=== PATIENT | female | born 1990 | race Hispanic/Latino ===

== ENCOUNTER 2017-07-14 11:59 | Emergency (ER) | payer SELFPAY ==
[2017-07-14 13:31] LABS: Absolute Lymphocytes (CBC) 2.4 K/uL (0.7-4.9); Absolute Monocytes 0.7 K/uL (0.1-1.3); Absolute Neutrophil 8.9 K/uL (1.8-8.0); Basophils % 1.2 % (0-1.3); Eosinophils % 0.2 % (0-4.4); Lymphocytes % 19.9 % (15.3-44.8); MCH 29.1 pg (27.0-35.0); MCV 88.7 fL (80-100); Monocytes % 5.6 % (3.3-12.3)
[2017-07-14 13:36] LABS: Urine Blood 2+ (NEG); Urine Glucose NEGATIVE (NEG); Urine Protein 1+ (NEG)
[2017-07-14] MEDS ORDERED: ONDANSETRON 4 MG/2 ML VIAL ONE (13:50)
[2017-07-14] MEDS ORDERED: NA CHLORIDE 0.9% 1,000 ML ONE (13:50)
[2017-07-14] MEDS ORDERED: KETOROLAC 30 MG/ML INJ ONE (13:50)
[2017-07-14 14:09] LABS: Bicarbonate 26 mEq/L (21-31); Glucose Level 97 mg/dL (65-120); Lipase 17 U/L (22-51); Potassium 3.8 mEq/L (3.6-5.0); Sodium Level 140 mEq/L (135-145)
[2017-07-14 14:15] LABS: ALT/SGPT 33 IU/L (10-60); AST/SGOT 25 IU/L (10-42); Albumin 4.3 g/dL (3.2-5.5); Alkaline Phosphatase 65 IU/L (42-121); Amylase Level 47 U/L (28-100); BUN Blood Urea Nitrogen 13 mg/dL (6-20); Bilirubin Direct < 0.1 mg/dL (0-0.2); Bilirubin Total 0.4 mg/dL (0.3-1.2); Protein, Total 7.4 g/dL (6.0-8.3)
--- NOTE | 2017-07-14 14:16 | RAD REPORT ---
EXAM DESCRIPTION: US - Abdomen Exam Limited - 07/14/2017 2:01 pm CLINICAL HISTORY: Abdominal pain. COMPARISON: None. FINDINGS: The gallbladder demonstrates shadowing gallstones. No pericholecystic fluid or gallbladder wall thickening. The common bile duct is normal measuring 4 mm. The liver demonstrates no findings of intrahepatic biliary dilatation. IMPRESSION: Cholelithiasis.
--- NOTE | 2017-07-14 14:22 | EDPHYS ---
Physician Documentation [facility] Name: Apoorva Toribio Age: 27 yrs Sex: Female : 1990 Arrival Date: 07/14/2017 Time: 12:03 Bed 19 Private MD: ED Physician Warren Guevara HPI: 07/14 13:30 This 27 yrs old Female presents to ER via Ambulatory with complaints of kb Abdominal Pain, Back Pain, Vomiting. 13:30 The patient presents with abdominal pain in the right upper quadrant. Onset: The kb symptoms/episode began/occurred 6 month(s) ago, and became worse yesterday. The symptoms radiate to right back. Associated signs and symptoms: Pertinent positives: nausea and vomiting. The symptoms are described as achy, intermittent. Modifying factors: The symptoms are alleviated by nothing, the symptoms are aggravated by food. Severity of pain: At its worst the pain was moderate in the emergency department the pain is unchanged. The patient has not experienced similar symptoms in the past. The patient has not recently seen a physician. Pt states she has had intermittent RUQ pain since January. Was seen here when it first started and was diagnosed with gallstones. States she was told to follow up with a surgeon, but hasn't been able to. States she started vomiting last night and it looked like acid so she came in to get checked out again. . 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 - Social history:: Smoking status: Patient/guardian denies using tobacco. ROS: 13:30 Constitutional: Negative for fever, chills, and weight loss, Cardiovascular: Negative kb for chest pain, palpitations, and edema, Respiratory: Negative for shortness of breath, cough, wheezing, and pleuritic chest pain, Back: Negative for injury and pain, : Negative for injury, bleeding, discharge, and swelling, MS/Extremity: Negative for injury and deformity, Skin: Negative for injury, rash, and discoloration, Neuro: Negative for headache, weakness, numbness, tingling, and seizure. 13:30 Abdomen/GI: Positive for abdominal pain, nausea and vomiting, Negative for diarrhea, constipation, abdominal cramps, abdominal distension, anorexia. Exam: 13:29 Constitutional: This is a well developed, well nourished patient who is awake, alert, kb and in no acute distress. Head/Face: Normocephalic, atraumatic. Chest/axilla: Normal chest wall appearance and motion. Nontender with no deformity. No lesions are appreciated. Cardiovascular: Regular rate and rhythm with a normal S1 and S2. No gallops, murmurs, or rubs. Normal PMI, no JVD. No pulse deficits. Respiratory: Lungs have equal breath sounds bilaterally, clear to auscultation and percussion. No rales, rhonchi or wheezes noted. No increased work of breathing, no retractions or nasal flaring. Back: No spinal tenderness. No costovertebral tenderness. Full range of motion. Skin: Warm, dry with normal turgor. Normal color with no rashes, no lesions, and no evidence of cellulitis. MS/ Extremity: Pulses equal, no cyanosis. Neurovascular intact. Full, normal range of motion. Neuro: Awake and alert, GCS 15, oriented to person, place, time, and situation. Cranial nerves II-XII grossly intact. Motor strength 5/5 in all extremities. Sensory grossly intact. Cerebellar exam normal. Normal gait. 13:29 Abdomen/GI: Inspection: abdomen appears normal, Bowel sounds: normal, in all quadrants, Palpation: soft, in all quadrants, mild abdominal tenderness, in the right upper quadrant. Vital Signs: 12:11 BP 114 / 73; Pulse 85; Resp 18 S; Temp 98.2(TE); Pulse Ox 99% on R/A; Weight 90.72 kg aa5 (R); Height 5 ft. 7 in. (170.18 cm) (R); Pain 6/10; 13:34 BP 99 / 57; Pulse 85; Resp 16; Pulse Ox 97% ; mh5 12:11 Body Mass Index 31.32 (90.72 kg, 170.18 cm) aa5 MDM: 12:46 Patient medically screened. kb 13:29 Data reviewed: vital signs, nurses notes. Data interpreted: Pulse oximetry: on room air kb is 99 %. Interpretation: normal. 14:17 Counseling: I had a detailed discussion with the patient and/or guardian regarding: the kb historical points, exam findings, and any diagnostic results supporting the discharge/admit diagnosis, lab results, radiology results, the need for outpatient follow up, a general surgeon, to return to the emergency department if symptoms worsen or persist or if there are any questions or concerns that arise at home. 07/14 13:01 Order name: Amylase, Serum; Complete Time: 14:15 kb 07/14 13:01 Order name: Basic Metabolic Panel; Complete Time: 14:15 kb 07/14 13:01 Order name: CBC with Diff kb 07/14 13:01 Order name: Hepatic Function; Complete Time: 14:15 kb 07/14 13:01 Order name: Lipase; Complete Time: 14:15 kb 07/14 13:18 Order name: Urine Dipstick--Ancillary (enter results); Complete Time: 13:37 eb 07/14 13:01 Order name: Urine Test (obtain specimen); Complete Time: 13:11 kb 07/14 13:01 Order name: IV Saline Lock; Complete Time: 13:24 kb 07/14 13:01 Order name: Labs collected and sent; Complete Time: 13:24 kb 07/14 13:01 Order name: US Abdomen Limited; Complete Time: 14:17 kb 07/14 13:18 Order name: Urine --Ancillary (enter results); Complete Time: 13:37 eb 07/14 13:01 Order name: Urine Dipstick-Ancillary (obtain specimen); Complete Time: 13:11 kb 07/14 13:33 Order name: Labs - recollect needed; Complete Time: 13:49 eb Administered Medications: 14:00 Drug: Zofran 4 mg Route: IVP; Site: right forearm; ph 14:32 Follow up: Response: No adverse reaction; Nausea is decreased ed1 14:00 Drug: TORadol 30 mg Route: IVP; Site: right forearm; ph 14:32 Follow up: Response: No adverse reaction; Pain is decreased ed1 14:01 Drug: NS 0.9% 1000 ml Route: IV; Rate: 1000 ml; Site: right forearm; ed1 14:32 Follow up: IV Status: Completed infusion; IV Intake: 1000ml ed1 Disposition: 07/14/17 14:22 Discharged to Home. Impression: Cholelithiasis. - Condition is Stable. - Discharge Instructions: Cholelithiasis, [id number]. - Prescriptions for Zofran 4 mg Oral Tablet - take 1 tablet by ORAL route every 6 hours As needed; 20 tablet. Diclofenac Sodium 75 mg Oral Tablet, Delayed Release (E.C.) - take 1 tablet by ORAL route 2 times per day As needed; 30 tablet. - Medication Reconciliation Form, Thank You Letter, Antibiotic Education, Prescription Opioid Use form. - Follow up: Emergency Department; When: As needed; Reason: Worsening of condition. Follow up: Private Physician; When: 2 - 3 days; Reason: Recheck today's complaints, Continuance of care, Re-evaluation by your physician. Addendum: 07/16/2017 10:45 Co-signature as Attending Physician, Warren Guevara MD I agree with the assessment and w a plan of care. Signatures: Dispatcher [employer] EDMS Tessa Edwards, JONAC AGRICULTURAL CHEMIST-Lu Lund, RN RN aa5 Wendi Mooney LVN ARMATURE REPAIRER ed1 Leeann Julian RN RN Warren Guevara MD MD wa Botello, Elizabeth eb Corrections: (The following items were deleted from the chart) 07/14 14:33 14:22 07/14/2017 14:22 Discharged to Home. Impression: Cholelithiasis. Condition is ed1 Stable. Discharge Instructions: Cholelithiasis, [id number]. Prescriptions for Zofran 4 mg Oral Tablet - take 1 tablet by ORAL route every 6 hours As needed; 20 tablet, Diclofenac Sodium 75 mg Oral Tablet, Delayed Release (E.C.) - take 1 tablet by ORAL route 2 times per day As needed; 30 tablet. and Forms are Medication Reconciliation Form, Thank You Letter, Antibiotic Education, Prescription Opioid Use. Follow up: Emergency Department; When: As needed; Reason: Worsening of condition. Follow up: Private Physician; When: 2 - 3 days; Reason: Recheck today's complaints, Continuance of care, Re-evaluation by your physician. kb
--- NOTE | 2017-07-14 14:22 | ER ---
Nurse's Notes [facility] Name: Apoorva Toribio Age: 27 yrs Sex: Female : 1990 Arrival Date: 07/14/2017 Time: 12:03 Bed 19 Private MD: Diagnosis: Cholelithiasis Presentation: 07/14 12:10 Presenting complaint: Patient states: RUQ pain radiating to right mid back. Pt also aa5 reports N/V. Pt states "I've been seen here before and they said I have gallstones". Transition of care: patient was not received from another setting of care. Onset of symptoms was June 2017. Initial Sepsis Screen: Does the patient meet any 2 criteria? No. Patient's initial sepsis screen is negative. Does the patient have a suspected source of infection? No. Patient's initial sepsis screen is negative. Care prior to arrival: None. 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 - Social history:: Smoking status: Patient/guardian denies using tobacco. Screenin:54 Abuse screen: Denies threats or abuse. Denies injuries from another. Nutritional ed1 screening: No deficits noted. Tuberculosis screening: No symptoms or risk factors identified. Fall Risk None identified. Assessment: 12:54 General: Appears uncomfortable, Behavior is calm, cooperative. Pain: Complains of pain ed1 in right upper quadrant Pain radiates to back Pain currently is 6 out of 10 on a pain scale. Quality of pain is described as sharp, Pain began 1 day ago. Is continuous. Neuro: Level of Consciousness is awake, alert, obeys commands, Oriented to person, place, time, situation. Cardiovascular: Heart tones S1 S2 present Chest pain is denied. Respiratory: Airway is patent Trachea midline Respiratory effort is even, unlabored, Respiratory pattern is regular, symmetrical, Breath sounds are clear bilaterally. GI: Abdomen is non-distended, Bowel sounds present X 4 quads. Abd is soft and non tender X 4 quads. Reports diarrhea, nausea, vomiting. : No signs and/or symptoms were reported regarding the genitourinary system. EENT: No signs and/or symptoms were reported regarding the EENT system. Derm: Skin is pink, warm \\T\\ dry. Musculoskeletal: Circulation, motion, and sensation intact. 12:54 Reassessment: I agree with assessment completed by JUAN M Adame. iw 14:31 Reassessment: Patient appears in no apparent distress at this time. Patient and/or ed1 family updated on plan of care and expected duration. Pain level reassessed. Patient is alert, oriented x 3, equal unlabored respirations, skin warm/dry/pink. Patient states feeling better. Patient states symptoms have improved. Vital Signs: 12:11 BP 114 / 73; Pulse 85; Resp 18 S; Temp 98.2(TE); Pulse Ox 99% on R/A; Weight 90.72 kg aa5 (R); Height 5 ft. 7 in. (170.18 cm) (R); Pain 6/10; 13:34 BP 99 / 57; Pulse 85; Resp 16; Pulse Ox 97% ; mh5 12:11 Body Mass Index 31.32 (90.72 kg, 170.18 cm) aa5 ED Course: 12:03 Patient arrived in ED. as 12:11 Triage completed. aa5 12:11 Arm band placed on. aa5 12:40 Tessa Edwards FNP-C [facility]. kb 12:41 Warren Guevara MD is Attending Physician. kb 12:52 Wendi Mooney LVN is Primary Nurse. ed1 12:54 Patient has correct armband on for positive identification. Bed in low position. Call ed1 light in reach. 13:24 Initial lab(s) drawn, by me, sent to lab. Missed attempt(s): 22 gauge in right forearm. ed1 Bleeding controlled, band aid applied, catheter tip intact. 13:29 Urine collected: clean catch specimen, cloudy. 5 13:30 Urine --Ancillary (enter results) Sent. 5 13:30 Urine Dipstick--Ancillary (enter results) Sent. 5 13:45 Patient taken to ultrasound. via wheelchair. sg3 13:51 Lab(s) recollected, by me, sent to lab. Inserted saline lock: 22 gauge in right 5 forearm, using aseptic technique. Blood collected. 13:54 Ultrasound completed. Patient tolerated well. Patient moved back from ultrasound. sg3 14:01 US Abdomen Limited In Process Unspecified. EDMS 14:31 No provider procedures requiring assistance completed. IV discontinued, intact, ed1 bleeding controlled, No redness/swelling at site. Pressure dressing applied. Administered Medications: 14:00 Drug: Zofran 4 mg Route: IVP; Site: right forearm; ph 14:32 Follow up: Response: No adverse reaction; Nausea is decreased ed1 14:00 Drug: TORadol 30 mg Route: IVP; Site: right forearm; ph 14:32 Follow up: Response: No adverse reaction; Pain is decreased ed1 14:01 Drug: NS 0.9% 1000 ml Route: IV; Rate: 1000 ml; Site: right forearm; ed1 14:32 Follow up: IV Status: Completed infusion; IV Intake: 1000ml ed1 Intake: 14:32 IV: 1000ml; Total: 1000ml. ed1 Outcome: 14:22 Discharge ordered by MD. norman 14:31 Discharged to home ambulatory. ed1 14:31 Condition: good 14:31 Discharge instructions given to patient, Instructed on discharge instructions, follow up and referral plans. medication usage, Demonstrated understanding of instructions, follow-up care, medications, Prescriptions given X 2. 14:33 Patient left the ED. ed1 Signatures: Dispatcher [employer] EDMS Tessa Edwards, CLEANING PORTER-C CLEANING PORTER-Nasrin Hawkins as Alba Johnson, Lu Hill RN, RN RN aa5 Wendi Mooney, JUAN M MCGOWAN ed1 Leeann Julian RN RN ph Martinez, Maria Yael Blankenship sg3
[2017-07-14 14:36] VITALS: TEMP 98.2
[2017-07-14 14:37] VITALS: BP 99/57; O2SAT 97
== END 2017-07-14 14:33 | disposition home or self-care (01) ==
LOC: ER 11:59
DX: K80.20 Calculus of gallbladder without cholecystitis without obstruction (principal); M54.9 Dorsalgia, unspecified; R11.11 Vomiting without nausea
CPT/HCPCS: 36415; 76705; 80048; 80076; 81003; 81025; 82150; 83690; 85025; 96361; 96374; 96375; 99284; J2405; J7030

== ENCOUNTER 2017-12-23 18:03 | Emergency (ER) | payer SELFPAY ==
[2017-12-23 18:53] LABS: Absolute Lymphocytes (CBC) 2.7 K/uL (0.7-4.9); Absolute Monocytes 0.6 K/uL (0.1-1.3); Absolute Neutrophil 6.5 K/uL (1.8-8.0); Basophils % 0.7 % (0-1.3); Eosinophils % 1.6 % (0-4.4); Hematocrit 39.4 % (36.0-45.0); Lymphocytes % 27.3 % (15.3-44.8); MCH 29.8 pg (27.0-35.0); MPV 8.9 fL (7.6-11.3); Monocytes % 5.9 % (3.3-12.3); RBC Red Blood Cell Count 4.52 M/uL (3.86-4.86)
[2017-12-23 19:02] LABS: ALT/SGPT 33 U/L (12-78); AST/SGOT 20 U/L (15-37); Albumin 3.7 g/dL (3.4-5.0); Alkaline Phosphatase 90 U/L (45-117); BUN Blood Urea Nitrogen 16 mg/dL (7-18); Bicarbonate 25 mmol/L (21-32); Bilirubin Direct < 0.1 mg/dL (0-0.2); Bilirubin Total 0.2 mg/dL (0.2-1.0); Glucose Level 115 mg/dL (74-106); Lipase 168 U/L (73-393); Potassium 4.1 mmol/L (3.5-5.1); Protein, Total 7.3 g/dL (6.4-8.2); Sodium Level 141 mmol/L (136-145)
[2017-12-23] MEDS ORDERED: KETOROLAC 30 MG/ML INJ ONE (19:07)
[2017-12-23] MEDS ORDERED: NA CHLORIDE 0.9% 1,000 ML ONE (19:08)
--- NOTE | 2017-12-23 19:14 | RAD REPORT ---
EXAM DESCRIPTION: CT - Stone Protocol - 12/23/2017 6:47 pm CLINICAL HISTORY: Back pain, flank pain COMPARISON: None. TECHNIQUE: Axial 5 mm thick images were obtained without oral or IV contrast. The [id number] span s the entirety of the system partially obscuring uppermost abdomen and lung bases. All CT scans are performed using dose optimization technique as appropriate and may include automated exposure control or mA/KV adjustment according to patient size. FINDINGS: No hydronephrosis is present and no obstructing ureteral calculi. No suspicious renal mass es. Isodense masses and pyelonephritis are not excluded on a stone protocol CT scan. Urinary bladder is contracted limiting detail. No bladder calculus. Uterus and ovaries show no suspicious findings. Imaged portions of the liver, spleen and pancreas show no suspicious findings on non-contrast imaging . No gallbladder or biliary tree abnormality identified. No significant adrenal finding. No suspicious bowel findings. No hernia, mass or bulky lymphadenopathy noted. No free air, free fluid or inflammatory stranding. No significant bony abnormality. Patient has advanced for age degenerative change at the L5-S1 disc level. IMPRESSION: Negative CT stone protocol study. Isodense masses and pyelonephritis are not excluded on stone protocol technique. Advanced for age degenerative change at the L5-S1 disc level.
[2017-12-23 19:20] LABS: Urine Blood 2+ (NEG); Urine Glucose NEGATIVE (NEG); Urine Protein NEGATIVE (NEG); Urine Specific Gravity >1.030 (1.005-1.030); Urine pH 6.5 (5.0-7.0)
--- NOTE | 2017-12-23 20:14 | ER ---
Nurse's Notes [facility] Name: Apoorva Toribio Age: 27 yrs Sex: Female : 1990 Arrival Date: 12/23/2017 Time: 18:06 Bed 15 Private MD: Diagnosis: Low back pain Presentation: 12/23 18:07 Presenting complaint: Patient states: lower back pain for 3 days, no known injury. la1 Transition of care: patient was not received from another setting of care. Onset of symptoms was December 23, 2017. Risk Assessment: Do you want to hurt yourself or someone else? Patient reports no desire to harm self or others. Initial Sepsis Screen: Does the patient meet any 2 criteria? No. Patient's initial sepsis screen is negative. Does the patient have a suspected source of infection? No. Patient's initial sepsis screen is negative. Care prior to arrival: None. 18:07 Method Of Arrival: Ambulatory la1 18:07 Acuity: KARLY 3 la1 Historical: - Allergies: 18:08 No Known Allergies; la1 - PMHx: 18:08 None; la1 - Immunization history:: Adult Immunizations up to date. - Social history:: Smoking status: Patient/guardian denies using tobacco. - Ebola Screening: : No symptoms or risks identified at this time. Screenin:35 Abuse screen: Denies threats or abuse. Denies injuries from another. Nutritional aj screening: No deficits noted. Tuberculosis screening: No symptoms or risk factors identified. Fall Risk None identified. Assessment: 18:35 General: Appears in no apparent distress. comfortable, Behavior is calm, cooperative, aj appropriate for age. Pain: Complains of pain in left lower back and right lower back. Neuro: Level of Consciousness is awake, alert, obeys commands, Oriented to person, place, time, situation, Appropriate for age. Respiratory: Airway is patent Respiratory effort is even, unlabored, Respiratory pattern is regular, symmetrical. : Denies burning with urination. Derm: Skin is intact, is healthy with good turgor, Skin is pink, warm \T\ dry. normal. Musculoskeletal: Reports pain in left lower back and right lower back. 19:05 Reassessment: Patient appears in no apparent distress at this time. Patient and/or cc3 family updated on plan of care and expected duration. Pain level reassessed. Patient is alert, oriented x 3, equal unlabored respirations, skin warm/dry/pink. Received this female patient from morning shift ELIEL Sewell as a case of back pain; with IV cannula gauge 18 at the right wrist saline locked; still to give the ordered medications as endorsed. 20:15 Reassessment: Patient appears in no apparent distress at this time. Patient and/or cc3 family updated on plan of care and expected duration. Pain level reassessed. Patient is alert, oriented x 3, equal unlabored respirations, skin warm/dry/pink. NAEEM Toribio discharged the patient home with prescription given. IV cannula removed and patient left ER vitally stable and ambulatory. Vital Signs: 18:08 BP 115 / 76; Pulse 108; Resp 18; Temp 97.6; Pulse Ox 98% on R/A; Weight 90.72 kg; la1 19:15 BP 113 / 77; Pulse 98; Resp 20 S; Pulse Ox 100% on R/A; Pain 9/10; cc3 20:06 BP 115 / 60; Pulse 97; Resp 19 S; Pulse Ox 100% on R/A; Pain 6/10; cc3 ED Course: 18:06 Patient arrived in ED. tw3 18:07 Triage completed. la1 18:08 Catarino Grossman, NAEEM is PHCP. pm1 18:08 Rudolph Jurado MD is Attending Physician. pm1 18:08 Arm band placed on left wrist. la1 18:26 Melodie Garcia, ELIEL is Primary Nurse. aj 18:35 Patient has correct armband on for positive identification. aj 18:35 Inserted saline lock: 18 gauge in right wrist, using aseptic technique. Blood collected.aj 18:47 CT Stone Protocol In Process Unspecified. EDMS 19:09 Urine collected: clean catch specimen. 5 19:10 Urine collected: clean catch specimen, clear. 5 20:15 No provider procedures requiring assistance completed. IV discontinued, intact, cc3 bleeding controlled, No redness/swelling at site. Pressure dressing applied. Administered Medications: 19:05 Drug: NS 0.9% 1000 ml Route: IV; Rate: 1000 ml; Site: right wrist; cc3 20:00 Follow up: Response: No adverse reaction; IV Status: Completed infusion; IV Intake: cc3 1000ml 19:05 Drug: TORadol 30 mg Route: IVP; Site: right wrist; cc3 20:00 Follow up: Response: No adverse reaction; Pain is decreased cc3 Intake: 20:00 IV: 1000ml; Total: 1000ml. cc3 Outcome: 20:13 Discharge ordered by MD. pm1 20:15 Discharged to home ambulatory. cc3 20:15 Condition: stable 20:15 Discharge instructions given to patient, Instructed on discharge instructions, follow up and referral plans. medication usage, Demonstrated understanding of instructions, follow-up care, medications, Prescriptions given X 1. 20:23 Patient left the ED. cc3 Signatures: Dispatcher [employer] EDMS Melodie Garcia RN RN aj Attema, Lee, RN RN la1 Catarino Grossman, NAEEM MECHANICAL PROJECT ENGINEER pm1 Janice Montez Tia tw3 Isabella Marx cc3 Corrections: (The following items were deleted from the chart) 18:29 18:07 Acuity: KARLY 4 la1 la1 19:11 07:05 TORadol 30 mg IVP in right wrist cc3 cc3
--- NOTE | 2017-12-23 20:14 | EDPHYS ---
Physician Documentation [facility] Name: Apoorva Toribio Age: 27 yrs Sex: Female : 1990 Arrival Date: 12/23/2017 Time: 18:06 Bed 15 Private MD: ED Physician Rudolph Jurado HPI: 12/23 19:00 This 27 yrs old Female presents to ER via Ambulatory with complaints of Back pm1 Pain. 19:00 The patient presents with pain that is acute, with no known mechanism of injury. The pm1 symptoms are located in the lumbar area and left low back. Onset: The symptoms/episode began/occurred 3 day(s) ago. The pain does not radiate. Associated signs and symptoms: Pertinent negatives: abdominal pain, chest pain, dysuria, fever, nausea, numbness, tingling, vomiting. The problem was sustained from unknown cause. Modifying factors: The patient symptoms are alleviated by specific position, the patient symptoms are aggravated by bending, movement. Severity of symptoms: in the emergency department the symptoms are unchanged. The patient has not experienced similar symptoms in the past. The patient has not recently seen a physician. Historical: - Allergies: 18:08 No Known Allergies; la1 - PMHx: 18:08 None; la1 - Immunization history:: Adult Immunizations up to date. - Social history:: Smoking status: Patient/guardian denies using tobacco. - Ebola Screening: : No symptoms or risks identified at this time. ROS: 19:00 Constitutional: Negative for fever, chills, and weight loss, Eyes: Negative for injury, pm1 pain, redness, and discharge, ENT: Negative for injury, pain, and discharge, Neck: Negative for injury, pain, and swelling, Cardiovascular: Negative for chest pain, palpitations, and edema, Respiratory: Negative for shortness of breath, cough, wheezing, and pleuritic chest pain, Abdomen/GI: Negative for abdominal pain, nausea, vomiting, diarrhea, and constipation. 19:00 MS/Extremity: Negative for injury and deformity, Skin: Negative for injury, rash, and discoloration. 19:00 Back: Positive for of the lumbar area and left low back. 19:00 : Positive for urinary frequency, Negative for burning with urination, vaginal bleeding, vaginal discharge. Exam: 19:00 Constitutional: This is a well developed, well nourished patient who is awake, alert, pm1 and in no acute distress. Head/Face: Normocephalic, atraumatic. Eyes: Pupils equal round and reactive to light, extra-ocular motions intact. Lids and lashes normal. Conjunctiva and sclera are non-icteric and not injected. Cornea within normal limits. Periorbital areas with no swelling, redness, or edema. ENT: Nares patent. No nasal discharge, no septal abnormalities noted. Tympanic membranes are normal and external auditory canals are clear. Oropharynx with no redness, swelling, or masses, exudates, or evidence of obstruction, uvula midline. Mucous membranes moist. Neck: Trachea midline, no thyromegaly or masses palpated, and no cervical lymphadenopathy. Supple, full range of motion without nuchal rigidity, or vertebral point tenderness. No Meningismus. Chest/axilla: Normal chest wall appearance and motion. Nontender with no deformity. No lesions are appreciated. Cardiovascular: Regular rate and rhythm with a normal S1 and S2. No gallops, murmurs, or rubs. No pulse deficits. Respiratory: Lungs have equal breath sounds bilaterally, clear to auscultation and percussion. No rales, rhonchi or wheezes noted. No increased work of breathing, no retractions or nasal flaring. Abdomen/GI: Soft, non-tender, with normal bowel sounds. No distension or tympany. No guarding or rebound. No evidence of tenderness throughout. Back: No spinal tenderness. No costovertebral tenderness. Full range of motion. Skin: Warm, dry with normal turgor. Normal color with no rashes, no lesions, and no evidence of cellulitis. MS/ Extremity: Pulses equal, no cyanosis. Neurovascular intact. Full, normal range of motion. 19:00 Neuro: Orientation: is normal, Motor: is normal, moves all fours, Sensation: is normal, no obvious gross deficits, Deep tendon reflexes are 2+ (normal) in the right patellar, right Achilles, left patellar and left Achilles. Vital Signs: 18:08 BP 115 / 76; Pulse 108; Resp 18; Temp 97.6; Pulse Ox 98% on R/A; Weight 90.72 kg; la1 19:15 BP 113 / 77; Pulse 98; Resp 20 S; Pulse Ox 100% on R/A; Pain 9/10; cc3 20:06 BP 115 / 60; Pulse 97; Resp 19 S; Pulse Ox 100% on R/A; Pain 6/10; cc3 MDM: 18:16 Patient medically screened. pm1 20:12 Data reviewed: vital signs. Data interpreted: Pulse oximetry: on room air is 100 %. pm1 Interpretation: normal. Counseling: I had a detailed discussion with the patient and/or guardian regarding: the historical points, exam findings, and any diagnostic results supporting the discharge/admit diagnosis, lab results, radiology results, the need for outpatient follow up, to return to the emergency department if symptoms worsen or persist or if there are any questions or concerns that arise at home. 12/23 18:23 Order name: Basic Metabolic Panel; Complete Time: 19:38 pm1 12/23 18:23 Order name: CBC with Diff; Complete Time: 19:38 pm1 12/23 18:23 Order name: Creatinine for Radiology; Complete Time: 19:38 pm1 12/23 18:23 Order name: Hepatic Function; Complete Time: 19:38 pm1 12/23 18:23 Order name: Lipase; Complete Time: 19:38 pm1 12/23 18:23 Order name: IV Saline Lock; Complete Time: 19:12 pm1 12/23 18:23 Order name: Labs collected and sent; Complete Time: 19:12 pm1 12/23 18:23 Order name: Urine Dipstick-Ancillary (obtain specimen); Complete Time: 18:40 pm1 12/23 18:23 Order name: CT Stone Protocol; Complete Time: 19:38 pm1 12/23 18:44 Order name: Urine Dipstick--Ancillary (enter results); Complete Time: 19:38 ag 12/23 18:44 Order name: Urine --Ancillary (enter results); Complete Time: 19:38 ag 12/23 18:23 Order name: Urine Test (obtain specimen); Complete Time: 18:40 pm1 Administered Medications: 19:05 Drug: NS 0.9% 1000 ml Route: IV; Rate: 1000 ml; Site: right wrist; cc3 20:00 Follow up: Response: No adverse reaction; IV Status: Completed infusion; IV Intake: cc3 1000ml 19:05 Drug: TORadol 30 mg Route: IVP; Site: right wrist; cc3 20:00 Follow up: Response: No adverse reaction; Pain is decreased cc3 Disposition: 12/23/17 20:13 Discharged to Home. Impression: Low back pain. - Condition is Stable. - Discharge Instructions: Back Pain, Adult, Back Injury Prevention, [id number], Degenerative Disk Disease. - Prescriptions for Naprosyn 500 mg Oral Tablet - take 1 tablet by ORAL route 2 times per day take with food; 30 tablet. - Medication Reconciliation Form, Thank You Letter, Prescription Opioid Use form. - Follow up: Emergency Department; When: As needed; Reason: Worsening of condition. Follow up: Private Physician; When: 2 - 3 days; Reason: Recheck today's complaints, Continuance of care, Re-evaluation by your physician. - Problem is new. - Symptoms have improved. Addendum: 12/25/2017 07:18 Co-signature as Attending Physician, Rudolph Jurado MD I agree with the assessment and c benz plan of care. Signatures: Dispatcher [employer] EDNV Rudolph Jurado MD MD cha Attema, Lee RN RN la1 Catarino Grossman NP SESSIONS CLERK pm1 Isabella Marx cc3 Corrections: (The following items were deleted from the chart) 12/23 20:23 20:13 12/23/2017 20:13 Discharged to Home. Impression: Low back pain. Condition is cc3 Stable. Forms are Medication Reconciliation Form, Thank You Letter, Antibiotic Education, Prescription Opioid Use. Follow up: Emergency Department; When: As needed; Reason: Worsening of condition. Follow up: Private Physician; When: 2 - 3 days; Reason: Recheck today's complaints, Continuance of care, Re-evaluation by your physician. Problem is new. Symptoms have improved. pm1
[2017-12-23 20:27] VITALS: TEMP 97.6
[2017-12-23 20:29] VITALS: O2SAT 100
[2017-12-23 20:30] VITALS: BP 115/60
== END 2017-12-23 20:23 | disposition home or self-care (01) ==
LOC: ER 18:03
DX: M54.5 Low back pain (principal)
CPT/HCPCS: 36415; 74176; 76377; 80048; 80076; 81003; 81025; 83690; 85025; 96361; 96374; 99284; J7030

== ENCOUNTER 2019-10-04 11:49 | Emergency (ER) | payer OTHER ==
--- OUTSIDE RECORDS SUMMARY | 2019-10-04 11:58 | XMS REPORT | Continuity of Care Document ---
:1990 Author Organization [facility] t Address [address] [place] [address] Care Team Providers Name Role Phone Isadroa PETERSON Attending Clinician Visit, Nurse Attending Clinician Unavailable Tereso ZIMMERMAN R Attending Clinician Blanca Cordova MD Attending Clinician Faculty, [facility] Lorenza Attending Clinician Unavailable Doctor Unassigned, Name Attending Clinician Unavailable Blanca Cordova MD Admitting Clinician Problems This patient has no known problems. Allergies, Adverse Reactions, Alerts This patient has no known allergies or adverse reactions. Medications This patient has no known medications. Procedures This patient has no known procedures. Encounters Start End Encounter Admission Attending Care Care Encounter Source Date/Time Date/Time Type Type Clinicians Facility Department ID 2018-11-08 2018-11-08 Telephone Isadora GUADALUPE 1.2.840.114 [id number] 00:00:00 00:00:00 , Lucita EGAN [id number] [facility] [id number] [id number] 2018-10-19 2018-10-19 Nurse VisitGOSIA [id number] 13:49:07 14:54:[facility] [id number] Nurse [facility] [id number] MATERNAL [id number] & CHILD [address] [place] [address] 2018-10-17 2018-10-17 Routine GOSIA Rider [id number] 11:36:32 11:54:06 Osvaldo R SITE RELIABILITY ENGINEER [id number] Visit [facility] [id number] MATERNAL [id number] & CHILD [address] [facility] 2018-10-15 2018-10-15 Telephone Isadora GUADALUPE 1.2.840.114 [id number] 00:00:00 00:00:00 , Lucita EGAN [id number] [facility] [id number] [id number] 2018-10-15 2018-10-15 1.2.840.1 1.2.840.114 [id number] 00:00:00 00:00:00 Encounter [id number] 3.104.2.7 [id number] [id number] 2018-10-11 2018-10-14 [facility] [id number] 18:46:00 12:53:00 Encounter Samantha Rios JIGNESH [id number] [facility] 4.2.7.2.686 [id number] 2018-10-14 2018-10-14 1.2.840.1 1.2.840.114 [id number] 00:00:00 00:00:00 Encounter [id number] 350.1.13.10 3.104.2.7 [id number] [id number] 2018-10-11 2018-10-11 Routine Faculty, [facility] 1.2.840.114 [id number] 10:38:34 11:31:42 [facility] SITE RELIABILITY ENGINEER [id number] Visit [facility] 4.2.7.2.686 MATERNAL [id number] & CHILD [address] [facility] 2018-10-11 2018-10-11 Orders Doctor COLLINS 1.2.840.114 [id number] 00:00:00 00:00:00 Only Unassigned, JIGNESH 350.1.13.10 [place] [facility] 4.2.7.2.686 [id number] 2018-10-08 2018-10-09 Routine Faculty, [facility] 1.2.840.114 [id number] 08:49:24 09:36:03 Ang Rmchp SITE RELIABILITY ENGINEER 350.1.13.10 Visit [facility] 4.2.7.2.686 MATERNAL [id number] & CHILD [address] [place] [address] 2018-09-19 2018-09-19 Patient Doctor COLLINS 1.2.840.114 [id number] 00:00:00 00:00:00 Secure Msg Unassigned, JIGNESH 350.1.13.10 [place] [address]686 [id number] [id number] 2018-09-14 2018-09-14 Patient Doctor COLLINS 1.2.840.114 [id number] 00:00:00 00:00:00 Secure Msg Unassigned, JIGNESH 350.1.13.10 [place] [id number] Results This patient has no known results.
--- NOTE | 2019-10-04 13:02 | EDPHYS ---
Physician Documentation [facility] Name: Apoorva Toribio Age: 29 yrs Sex: Female : 1990 Arrival Date: 10/04/2019 Time: 11:51 Bed 13 Private MD: ED Physician Wilfrido Garrido HPI: 10/03 14:48 This 29 yrs old Female presents to ER via Ambulatory with complaints of jr8 Indigestion . 14:50 Onset: The symptoms/episode began/occurred gradually. Associated signs and symptoms: jr8 none. The symptoms are described as burning. Modifying factors: The symptoms are alleviated by nothing, the symptoms are aggravated by food. Severity of pain: At its worst the pain was mild. The patient has not experienced similar symptoms in the past. The patient has not recently seen a physician. Patient stated that she is 19 weeks . Has been having gnawing epigastric pain with burning. Worse in the AM. Has not tried antacids as of yet. Denies any other symptoms at this time . 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 - Social history:: Smoking status: Patient denies any tobacco usage or history of. ROS: 14:50 Eyes: Negative for injury, pain, redness, and discharge, ENT: Negative for injury, jr8 pain, and discharge, Neck: Negative for injury, pain, and swelling, Cardiovascular: Negative for chest pain, palpitations, and edema, Respiratory: Negative for shortness of breath, cough, wheezing, and pleuritic chest pain, Back: Negative for injury and pain, MS/Extremity: Negative for injury and deformity, Skin: Negative for injury, rash, and discoloration, Neuro: Negative for headache, weakness, numbness, tingling, and seizure. 14:50 Abdomen/GI: Positive for abdominal pain, Negative for nausea, vomiting, and diarrhea, abdominal cramps, abdominal distension, anorexia, dysphagia, hematemesis, black/tarry stool, rectal pain, rectal bleeding, bowel incontinence, flatulence. Exam: 14:50 Eyes: Pupils equal round and reactive to light, extra-ocular motions intact. Lids and jr8 lashes normal. Conjunctiva and sclera are non-icteric and not injected. Cornea within normal limits. Periorbital areas with no swelling, redness, or edema. ENT: Nares patent. No nasal discharge, no septal abnormalities noted. Tympanic membranes are normal and external auditory canals are clear. Oropharynx with no redness, swelling, or masses, exudates, or evidence of obstruction, uvula midline. Mucous membranes moist. Neck: Trachea midline, no thyromegaly or masses palpated, and no cervical lymphadenopathy. Supple, full range of motion without nuchal rigidity, or vertebral point tenderness. No Meningismus. Cardiovascular: Regular rate and rhythm with a normal S1 and S2. No gallops, murmurs, or rubs. Normal PMI, no JVD. No pulse deficits. Respiratory: Lungs have equal breath sounds bilaterally, clear to auscultation and percussion. No rales, rhonchi or wheezes noted. No increased work of breathing, no retractions or nasal flaring. Abdomen/GI: Soft, non-tender, with normal bowel sounds. No distension or tympany. No guarding or rebound. No evidence of tenderness throughout. Back: No spinal tenderness. No costovertebral tenderness. Full range of motion. Skin: Warm, dry with normal turgor. Normal color with no rashes, no lesions, and no evidence of cellulitis. MS/ Extremity: Pulses equal, no cyanosis. Neurovascular intact. Full, normal range of motion. Neuro: Awake and alert, GCS 15, oriented to person, place, time, and situation. Cranial nerves II-XII grossly intact. Motor strength 5/5 in all extremities. Sensory grossly intact. Cerebellar exam normal. Normal gait. Vital Signs: 11:59 BP 119 / 67; Pulse 74; Resp 14; Temp 98.0(TE); Pulse Ox 97% on R/A; Weight 99.79 kg; ss Height 5 ft. 7 in. (170.18 cm); Pain 4/10; 11:59 Body Mass Index 34.46 (99.79 kg, 170.18 cm) MDM: 12:12 Patient medically screened. jr8 12:58 Data reviewed: vital signs, nurses notes, and as a result, I will discharge patient. jr8 Data interpreted: Pulse oximetry: on room air is 97 %. Interpretation: normal. Counseling: I had a detailed discussion with the patient and/or guardian regarding: the historical points, exam findings, and any diagnostic results supporting the discharge/admit diagnosis, the need for outpatient follow up, an OB/Gyne specialist, to return to the emergency department if symptoms worsen or persist or if there are any questions or concerns that arise at home. ED course: Patient without abdominal pain or tenderness. Symptoms consistent with acid reflux related to . Will start patient on pepcid and told to f/u with OB. If worse to come back for reevaluation. Patient good with this . Administered Medications: No medications were administered Disposition: 15:44 Co-signature as Attending Physician, Wilfrido Garrido MD I agree with the assessment and kdr plan of care. Disposition: 10/04/19 13:00 Discharged to Home. Impression: Functional dyspepsia. - Condition is Stable. - Discharge Instructions: Indigestion. - Prescriptions for Pepcid 20 mg Oral Tablet - take 1 tablet by ORAL route once daily; 20 tablet. - Medication Reconciliation Form, Thank You Letter, Antibiotic Education, Prescription Opioid Use form. - Follow up: Private Physician; When: 2 - 3 days; Reason: Recheck today's complaints, Continuance of care, Re-evaluation by your physician. - Problem is new. - Symptoms have improved. Signatures: Wilfrido Garrido MD MD [facility] Shalini Benedict RN RN Nnamdi Walls PA PA jr8 Mable Abarca RN RN hb Corrections: (The following items were deleted from the chart) 13:15 13:00 10/04/2019 13:00 Discharged to Home. Impression: Functional dyspepsia. Condition hb is Stable. Forms are Medication Reconciliation Form, Thank You Letter, Antibiotic Education, Prescription Opioid Use. Follow up: Private Physician; When: 2 - 3 days; Reason: Recheck today's complaints, Continuance of care, Re-evaluation by your physician. Problem is new. Symptoms have improved. jr8
--- NOTE | 2019-10-04 13:02 | ER ---
Nurse's Notes [facility] Name: Apoorva Toribio Age: 29 yrs Sex: Female : 1990 Arrival Date: 10/04/2019 Time: 11:51 Bed 13 Private MD: Diagnosis: Functional dyspepsia Presentation: 10/03 11:59 Chief complaint: Patient states: epigastric burning x 3-4 days. Pt reports she is 19 ss weeks currently and does not have a doctor because she just moved. Denies vaginal bleeding/ abd cramping. Coronavirus screen: Patient denies a cough. Patient denies shortness of breath or difficulty breathing. Patient denies measured and/or subjective temperature greater than 100.4F prior to today's visit. Patient denies travel on a cruise ship or to a country the [facility] currently lists as an affected area. Patient denies contact with known and/or suspected case of COVID-19. Ebola Screen: Patient denies exposure to infectious person. Patient denies travel to an Ebola-affected area in the 21 days before illness onset. Initial Sepsis Screen: Does the patient meet any 2 criteria? No. Patient's initial sepsis screen is negative. Does the patient have a suspected source of infection? No. Patient's initial sepsis screen is negative. Risk Assessment: Do you want to hurt yourself or someone else? Patient reports no desire to harm self or others. Onset of symptoms was September 30, 2019. 11:59 Method Of Arrival: Ambulatory ss 11:59 Acuity: KARLY 3 ss Triage Assessment: 12:06 General: Appears in no apparent distress. Behavior is calm, cooperative. Pain: ks7 Complains of pain in abdomen epigastric pain Pain currently is 4 out of 10 on a pain scale. at worst was 8 out of 10 on a pain scale. Quality of pain is described as burning, Pain began 2-3 days ago. worse when she wakes up in the am. Respiratory: No deficits noted. Injury Description: denies injury. 13:27 Injury Description: no injury. ks7 13:28 Respiratory: No deficits noted. ks7 13:29 Injury Description:. Injury Description:. 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 - Social history:: Smoking status: Patient denies any tobacco usage or history of. Screenin:09 Abuse screen: Denies threats or abuse. Denies injuries from another. Nutritional ks7 screening: No deficits noted. Tuberculosis screening: No symptoms or risk factors identified. Fall Risk None identified. Assessment: 12:09 General: Appears in no apparent distress. pt c/o burning epigastric pain, currently ks7 4/10 pain. worse when she first wakes up in am. pt is 19 weeks PG, has only had 1 WASH DRILLER appt d/t no insurance and relocating to [place]. pt denies any lower abd pain, denies bleeding or any other sx related to . aaox4, ambulatory. Derm: No deficits noted. Vital Signs: 11:59 BP 119 / 67; Pulse 74; Resp 14; Temp 98.0(TE); Pulse Ox 97% on R/A; Weight 99.79 kg; ss Height 5 ft. 7 in. (170.18 cm); Pain 4/10; 11:59 Body Mass Index 34.46 (99.79 kg, 170.18 cm) ED Course: 11:51 Patient arrived in ED. ag5 12:01 Triage completed. ss 12:01 Arm band placed on right wrist. 12:06 Kathe Louise, RN is Primary Nurse. ks7 12:09 Patient has correct armband on for positive identification. Call light in reach. ks7 12:09 No provider procedures requiring assistance completed. Patient did not have IV access ks7 during this emergency room visit. 12:11 Nnamdi Walls PA is PHCP. jr8 12:11 Wilfrido Garrido MD is Attending Physician. jr8 Administered Medications: No medications were administered Outcome: 13:00 Discharge ordered by . jr8 13:15 Patient left the ED. hb 13:28 Discharged to home ambulatory. ks7 13:28 Condition: good 13:28 Condition: good 13:28 Discharge instructions given to patient, pt left without dc instructions and script. pt still standing outside waiting for her ride, viscosity worker brought paperwork out to pt. Signatures: Shalini Benedict, RN RN Nnamdi West PA PA jr8 Mable Abarca RN RN Joselito Thornton ag5 Kathe Louise RN RN ks7
[2019-10-04 13:20] VITALS: BP 119/67; TEMP 98; O2SAT 97
== END 2019-10-04 13:15 | disposition home or self-care (01) ==
LOC: ER 11:49
DX: O99.612 Diseases of the digestive system complicating pregnancy, second trimester (principal); K30 Functional dyspepsia; Z3A.19 19 weeks gestation of pregnancy
CPT/HCPCS: 99281

== ENCOUNTER 2020-10-15 08:50 | Emergency (ER) | payer OTHER ==
--- OUTSIDE RECORDS SUMMARY | 2020-10-15 08:54 | XMS REPORT | Continuity of Care Document ---
:1990 Author Organization [facility] t Address [address] [place] [address] Care Team Providers Name Role Phone Jose Guadalupe Rodriguez MD Attending Clinician Gato Jasso MD Attending Clinician Hong PAZ Attending Clinician Ultrasound Attending Clinician Unavailable Aliyah WHCNP, C Attending Clinician Faculty, Rmchp Mfm Attending Clinician Unavailable Doctor Unassigned, Name Attending Clinician Unavailable Tereso TRACK REPAIRER HELPER, R Attending Clinician Jose Guadalupe Rodriguez MD Admitting Clinician Problems This patient has no known problems. Allergies, Adverse Reactions, Alerts This patient has no known allergies or adverse reactions. Medications This patient has no known medications. Procedures This patient has no known procedures. Encounters Start End Encounter Admission Attending Care Care Encounter Source Date/Time Date/Time Type Type Clinicians Facility Department ID 2020-02-14 2020-02-17 [facility] Shi COLLINS 1.2.840.114 [id number] 08:04:00 12:35:00 Encounter Chely EGAN 350.1.13.10 [facility] 4.2.7.2.686 [id number] 2020-02-17 2020-02-17 [facility] 1.2.840.1 1.2.840.114 [id number] 00:00:00 00:00:00 Encounter [id number] 350.1.13.10 3.104.2.7 [id number] [id number] 2020-02-14 2020-02-14 Anesthesia Carlitos Perez 1.2. 840.114 [id number] 10:18:00 14:00:00 Helga Pitts 350.1.13.10 ANNEX 4.2.7.2.686 [id number] 2020-02-12 2020-02-12 Dictaphone Transcriber Ultrasound, [facility] 1.2.840.114 [id number] 09:38:50 10:03:19 Visit [facility] AVID EDITOR 350.1.13.10 [facility] 4.2.7.2.686 MATERNAL [id number] & CHILD [facility] 2020-02-12 2020-02-12 Abstract [facility] 1.2.840.114 [id number] 00:00:00 00:00:00 Jane C AVID EDITOR 350.1.13.10 [facility] 4.2.7.2.686 MATERNAL [id number] & CHILD 107 [facility] 2020-02-10 2020-02-10 Telemedici Faculty, [facility] 1.2.840.114 [id number] 08:25:58 08:55:58 ne Visit [facility] AVID EDITOR 350.1.13.10 [facility] 4.2.7.2.686 MATERNAL [id number] & CHILD 107 [facility] 2020-02-10 2020-02-10 [facility] [id number] 07:51:17 08:53:42 Jane C AVID EDITOR 350.1.13.10 Visit [facility] 4.2.7.2.686 MATERNAL [id number] & CHILD 107 [facility] 2020-02-10 2020-02-10 Orders Doctor COLLINS 1.2.840.114 [id number] 00:00:00 00:00:00 Only Unassigned, JIGNESH 350.1.13.10 [facility] 4.2.7.2.686 [id number] 2020-02-05 2020-02-05 [facility] 1.2.500.671 [id number] 08:34:33 09:37:41 Jane C AVID EDITOR 350.1.13.10 Visit [facility] 4.2.7.2.686 MATERNAL [id number] & CHILD 107 [facility] 2020-02-05 2020-02-05 Orders Doctor COLLINS 1.2.840.114 [id number] 00:00:00 00:00:00 Only Unassigned, JIGNESH 350.1.13.10 [facility] 4.2.7.2.686 [id number] 2020-02-03 2020-02-03 Routine Faculty, [facility] 1.2.840.114 [id number] 08:37:59 10:21:14 Ang Rmchp AVID EDITOR 350.1.13.10 Visit [facility] 4.2.7.2.686 MATERNAL [id number] & CHILD 107 [facility] 2020-01-30 2020-01-30 [facility] 1.2.685.758 [id number] 09:01:45 10:04:06 Jane C AVID EDITOR 350.1.13.10 Visit [facility] 4.2.7.2.686 MATERNAL [id number] & CHILD 107 [facility] 2020-01-30 2020-01-30 Orders Doctor COLLINS 1.2.840.114 [id number] 00:00:00 00:00:00 Only Unassigned, JIGNESH 350.1.13.10 [place] [facility] 4.2.7.2.686 [id number] 2020-01-27 2020-01-27 Telemedici Faculty, [facility] 1.2.840.114 [id number] 09:45:11 09:45:51 ne Visit Ang Rmchp AVID EDITOR 350.1.13.10 [facility] 4.2.7.2.686 MATERNAL [id number] & CHILD 107 [facility] 2020-01-27 2020-01-27 Routine Rider, [facility] 1.2.840.114 [id number] 08:06:57 09:45:32 Roshunda R AVID EDITOR 350.1.13.10 Visit [facility] 4.2.7.2.686 MATERNAL [id number] & CHILD 107 [facility] 2020-01-23 2020-01-23 Routine Akinsipe, [facility] 1.2.732.649 [id number] 08:16:33 09:15:06 Jane C AVID EDITOR 350.1.13.10 Visit [facility] 4.2.7.2.686 MATERNAL [id number] & CHILD 107 [facility] 2020-01-21 2020-01-21 Orders Doctor COLLINS 1.2.840.114 [id number] 00:00:00 00:00:00 Only Unassigned, JIGNESH 350.1.13.10 [place] [facility] 4.2.7.2.686 [id number] 2020-01-16 2020-01-16 Telephone [facility], [facility] 1.2.840.114 [id number] 00:00:00 00:00:00 Jane C AVID EDITOR 350.1.13.10 [facility] 4.2.7.2.686 MATERNAL [id number] & CHILD 107 [facility] 2020-01-15 2020-01-15 Dictaphone Transcriber Ultrasound, [facility] 1.2.840.114 [id number] 09:20:19 09:53:20 Visit Ang-m AVID EDITOR 350.1.13.10 [facility] 4.2.7.2.686 MATERNAL [id number] & CHILD 369 [facility] 2020-01-15 2020-01-15 Telephone Akinsipe, [facility] 1.2.840.114 [id number] 00:00:00 00:00:00 Jane C AVID EDITOR 350.1.13.10 [facility] 4.2.7.2.686 MATERNAL [id number] & CHILD 107 [facility] 2020-01-15 2020-01-15 Abstract Akinsipe, [facility] 1.2.840.114 [id number] 00:00:00 00:00:00 Jane C AVID EDITOR 350.1.13.10 [facility] 4.2.7.2.686 MATERNAL [id number] & CHILD 107 [facility] 2020-01-09 2020-01-09 Routine Akinsipe, [facility] 1.2.014.238 [id number] 10:39:53 11:24:55 Jane C AVID EDITOR 350.1.13.10 Visit [facility] 4.2.7.2.686 MATERNAL [id number] & CHILD 107 [facility] 2020-01-06 2020-01-06 Telephone GOSIA Ly 1.2.840.114 [id number] 00:00:00 00:00:00 Jane Longoria AVID EDITOR 350.1.13.10 [facility] 4.2.7.2.686 MATERNAL [id number] & CHILD 107 [facility] 2019-09-24 2019-09-24 Orders Doctor COLLINS 1.2.840.114 [id number] 00:00:00 00:00:00 Only Unassigned, JIGNESH 350.1.13.10 [place] 4.2.7.2.686 [id number] Results This patient has no known results.
[2020-10-15] MEDS ORDERED: ACETAMINOPHEN 500 MG TAB ONE (11:28)
--- NOTE | 2020-10-15 11:56 | RAD REPORT ---
EXAM DESCRIPTION: RAD - Chest Single View - 10/15/2020 11:24 am CLINICAL HISTORY: COUGH Chest pain. COMPARISON: Chest Pa And Lat (2 Views) dated 10/13/2020; CHEST SINGLE VIEW dated 08/23/2012; ABDOMEN 1 VIEW KUB dated 09/14/2011 FINDINGS: Portable technique limits examination quality. Bilateral pulmonary opacities are present in the lung bases most compatible with bronchitis/viral inf ection. The heart is mildly to moderately enlarged. No displaced fractures.
--- NOTE | 2020-10-15 12:10 | EDPHYS ---
Physician Documentation [facility] Name: Apoorva Toribio Age: 30 yrs Sex: Female : 1990 Arrival Date: 10/15/2020 Time: 08:54 Bed DX2 Private MD: ED Physician Wilfrido Garrido HPI: 10/15 10:16 This 30 yrs old Female presents to ER via Ambulatory with complaints of Cough. kdr 10:16 The patient or guardian reports cough, that is intermittent, described as mild, with kdr productive sputum, that is bloody, difficulty breathing. Onset: The symptoms/episode began/occurred gradually, 1 week(s) ago. Severity of symptoms: At their worst the symptoms were mild, in the emergency department the symptoms are unchanged. Associated signs and symptoms: Pertinent positives: Abdominal pain and low back pain primarily with coughing. The patient has not experienced similar symptoms in the past. The patient has been recently seen by a physician: Patient states that she had a chest x-ray and Covid test 2 days ago that were both negative. Patient continues to have cough and congestion. Today she has had small flecks of blood in her sputum. The blood is more bright red and dark.. . 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 - Social history:: Smoking status: Patient denies any tobacco usage or history of. ROS: 10:16 Constitutional: Negative for fever, chills, and weight loss, Eyes: Negative for injury, kdr pain, redness, and discharge, Neck: Negative for injury, pain, and swelling, Cardiovascular: Negative for chest pain, palpitations, and edema, Abdomen/GI: Negative for abdominal pain, nausea, vomiting, diarrhea, and constipation, Back: Negative for injury and pain, : Negative for injury, bleeding, discharge, and swelling, MS/Extremity: Negative for injury and deformity, Skin: Negative for injury, rash, and discoloration, Neuro: Negative for headache, weakness, numbness, tingling, and seizure activity. Psych: Negative for depression, anxiety, suicide ideation, homicidal ideation, and hallucinations, Allergy/Immunology: Negative for hives, rash, and allergies, Endocrine: Negative for neck swelling, polydipsia, polyuria, polyphagia, and marked weight changes, Hematologic/Lymphatic: Negative for swollen nodes, abnormal bleeding, and unusual bruising. 10:16 Respiratory: Positive for cough, with rust-colored sputum, dyspnea on exertion, shortness of breath, wheezing. Exam: 10:16 Constitutional: This is a well developed, well nourished patient who is awake, alert, kdr and in no acute distress. Head/Face: Normocephalic, atraumatic. Eyes: Pupils equal round and reactive to light, extra-ocular motions intact. Lids and lashes normal. Conjunctiva and sclera are non-icteric and not injected. Cornea within normal limits. Periorbital areas with no swelling, redness, or edema. Neck: Trachea midline, no thyromegaly or masses palpated, and no cervical lymphadenopathy. Supple, full range of motion without nuchal rigidity, or vertebral point tenderness. No Meningismus. Chest/axilla: Normal chest wall appearance and motion. Nontender with no deformity. No lesions are appreciated. Cardiovascular: Regular rate and rhythm with a normal S1 and S2. No gallops, murmurs, or rubs. Normal PMI, no JVD. No pulse deficits. Abdomen/GI: Soft, non-tender, with normal bowel sounds. No distension or tympany. No guarding or rebound. No evidence of tenderness throughout. Back: No spinal tenderness. No costovertebral tenderness. Full range of motion. Skin: Warm, dry with normal turgor. Normal color with no rashes, no lesions, and no evidence of cellulitis. MS/ Extremity: Pulses equal, no cyanosis. Neurovascular intact. Full, normal range of motion. Neuro: Awake and alert, GCS 15, oriented to person, place, time, and situation. Cranial nerves II-XII grossly intact. Motor strength 5/5 in all extremities. Sensory grossly intact. Cerebellar exam normal. Normal gait. Psych: Awake, alert, with orientation to person, place and time. Behavior, mood, and affect are within normal limits. 10:16 Respiratory: the patient does not display signs of respiratory distress, Respirations: no acute changes, Breath sounds: rales, that are moderate, are scattered, are heard diffusely. Vital Signs: 09:29 BP 104 / 54; Pulse 103; Resp 16; Temp 100.1(O); Pulse Ox 98% on R/A; Weight 116.12 kg; ss Height 5 ft. 7 in. (170.18 cm); Pain 7/10; 09:29 Body Mass Index 40.09 (116.12 kg, 170.18 cm) MDM: 10:16 Data reviewed: vital signs, nurses notes, diagnostic data from outside facility, [facility] medical records, lab test result(s), EKG, radiologic studies. Counseling: I had a detailed discussion with the patient and/or guardian regarding: the historical points, exam findings, and any diagnostic results supporting the discharge/admit diagnosis, lab results, radiology results, the need for outpatient follow up. 12:09 Patient medically screened. [facility] 10/15 09:34 Order name: COVID-19 : Document "Date of Symptom Onset" if Symptomatic. 10/15 09:34 Order name: Flu 10/15 09:34 Order name: Influenza Screen (A ; Complete Time: 12:06 EDMS 10/15 11:07 Order name: CXR XRAY; Complete Time: 12:06 kdr 10/15 11:51 Order name: SARS-COV-2 RT PCR; Complete Time: 12:06 EDMS Administered Medications: 11:07 Drug: Tylenol 1000 mg Route: PO; 12:48 Follow up: Response: No adverse reaction 12:38 Drug: SOLU-Medrol (methylPREDNISolone sodium succinate) 125 mg Route: IM; Site: right ss deltoid; 12:48 Follow up: Response: No adverse reaction Disposition Summary: 10/15/20 12:09 Discharge Ordered Location: Home kdr Problem: new kdr Symptoms: have improved kdr Condition: Stable kdr Diagnosis - Other viral pneumonia kdr - Viral pneumonia, unspecified kdr - Viral upper respiratory infection, Covid, cough kdr Followup: kdr - With: Private Physician - When: 2 - 3 days - Reason: If symptoms return, Further diagnostic work-up, Recheck today's complaints, Continuance of care, Re-evaluation by your physician Discharge Instructions: - Discharge Summary Sheet kdr - COVID-19 kdr - Things to Know about the COVID-19 Pandemic - [facility] kdr - 10 Things You Can Do to Manage Your COVID-19 Symptoms at Home - [facility] kdr Forms: - Medication Reconciliation Form kdr - Thank You Letter kdr Prescriptions: - Prednisone 20 mg Oral Tablet - take 1 tablet by ORAL route once daily for 14 days Take 1 tablet twice daily kdr for 7 days then tablet daily for 7 days. Dispense quantity sufficient; 21 tablet; Refills: 0, Product Selection Permitted - Tessalon Perles 100 mg Oral Capsule - take 1 capsule by ORAL route every 8 hours As needed; 15 capsule; Refills: 0, kdr Product Selection Permitted Signatures: Dispatcher [employer] EDMS Wilfrido Garrido MD MD kdr Shalini Benedict RN RN ss Corrections: (The following items were deleted from the chart) 10:51 09:34 CORONAVIRUS ordered. [facility] EDDE
--- NOTE | 2020-10-15 12:10 | ER ---
Nurse's Notes [facility] Name: Apoorva Toribio Age: 30 yrs Sex: Female : 1990 Arrival Date: 10/15/2020 Time: 08:54 Bed DX2 Private MD: Diagnosis: Other viral pneumonia;Viral pneumonia, unspecified;Viral upper respiratory infection, Covid, cough Presentation: 10/15 09:29 Chief complaint: Patient states: Negative COVID test and chest XRAY two days ago. PT ss reporpts that her back and abd are sore and now she has blood tinged mucus when she coughs. Pt reports she had body aches and headache followed by a cough that began a week ago. Coronavirus screen: Client denies travel out of the [place] in the last 14 days. Client presents with at least one sign or symptom that may indicate coronavirus-19. Standard/surgical mask placed on the client. Provider contacted for isolation considerations. Ebola Screen: Patient denies exposure to infectious person. Patient denies travel to an Ebola-affected area in the 21 days before illness onset. Initial Sepsis Screen: Does the patient meet any 2 criteria? No. Patient's initial sepsis screen is negative. Does the patient have a suspected source of infection? No. Patient's initial sepsis screen is negative. Risk Assessment: Do you want to hurt yourself or someone else? Patient reports no desire to harm self or others. Onset of symptoms was November 08, 2020. 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 - Social history:: Smoking status: Patient denies any tobacco usage or history of. Screenin:25 Abuse screen: Denies threats or abuse. Denies injuries from another. Nutritional ss screening: No deficits noted. Tuberculosis screening: Never had TB. Fall Risk None identified. Assessment: 10:25 General: Appears uncomfortable, Behavior is calm, cooperative, Reports chills for >3 ss days, feeling ill for > 3 days, fatigue for >3 days. Pain: Complains of pain in headache Pain currently is 7 out of 10 on a pain scale. Quality of pain is described as aching. Neuro: Level of Consciousness is awake, alert, obeys commands, Oriented to person, place, time, situation. Cardiovascular: Capillary refill < 3 seconds is brisk in bilateral fingers Patient's skin is warm and dry. Respiratory: Reports cough that is blood tinged since this morning Airway is patent Respiratory effort is even, unlabored, Respiratory pattern is regular, symmetrical. Respiratory: Reports shortness of breath on exertion Breath sounds with rales bilaterally. GI: Abdomen is non-distended, Patient currently denies diarrhea, nausea, vomiting. EENT: Nares are clear Oral mucosa is moist. Derm: Skin is intact, is healthy with good turgor, Skin is dry, Skin is pink, warm \\T\\ dry. normal. Musculoskeletal: Circulation, motion, and sensation intact. Range of motion: intact in all extremities, Swelling absent. Vital Signs: 09:29 BP 104 / 54; Pulse 103; Resp 16; Temp 100.1(O); Pulse Ox 98% on R/A; Weight 116.12 kg; ss Height 5 ft. 7 in. (170.18 cm); Pain 7/10; 09:29 Body Mass Index 40.09 (116.12 kg, 170.18 cm) ss ED Course: 08:54 Patient arrived in ED. mr 09:32 Triage completed. ss 09:32 Arm band placed on right wrist. 10:07 Wilfrido Garrido MD is Attending Physician. kdr 10:22 Flu Sent. 5 10:22 COVID-19 : Document "Date of Symptom Onset" if Symptomatic. Sent. 5 10:22 COVID swab sent to lab. Flu and/or RSV swab sent to lab. [facility] 10:24 Shalini Benedict, ELIEL is Primary Nurse. ss 10:25 Patient has correct armband on for positive identification. Bed in low position. Call ss light in reach. 11:24 CXR XRAY In Process Unspecified. EDMS 12:48 No provider procedures requiring assistance completed. Patient did not have IV access ss during this emergency room visit. Administered Medications: 11:07 Drug: Tylenol 1000 mg Route: PO; ss 12:48 Follow up: Response: No adverse reaction ss 12:38 Drug: SOLU-Medrol (methylPREDNISolone sodium succinate) 125 mg Route: IM; Site: right ss deltoid; 12:48 Follow up: Response: No adverse reaction ss Outcome: 12:09 Discharge ordered by . kdr 12:48 Discharged to home ambulatory. ss 12:48 Condition: good 12:48 Discharge instructions given to patient, Instructed on discharge instructions, follow up and referral plans. Demonstrated understanding of instructions, follow-up care, Prescriptions given X 2. 12:48 Patient left the ED. ss Signatures: Dispatcher [employer] EDMS Wilfrido Garrido MD MD kdr Rivera, Mary mr Smirch, Shelby, RN RN Janice Rose [facility]
[2020-10-15 12:55] VITALS: BP 104/54; TEMP 100.1; O2SAT 98
[2020-10-15] MEDS ORDERED: METHYLPREDNISOLONE 125 MG INJ ONE (12:56)
== END 2020-10-15 12:48 | disposition home or self-care (01) ==
LOC: ER 08:50
DX: U07.1 COVID-19 (principal); J12.89 Other viral pneumonia; J06.9 Acute upper respiratory infection, unspecified
CPT/HCPCS: 87804 ×2; 71045; 96372; 99284; U0003; J2930

== ENCOUNTER 2023-02-08 08:17 | Emergency (ER) | payer OTHER ==
--- OUTSIDE RECORDS SUMMARY | 2023-02-08 08:35 | XMS REPORT | Continuity of Care Document ---
:1990 Author Organization [facility] t Address [address] [address] [place] [address] Care Team Providers Name Role Phone ANGIE LY Primary Care Physician Unavailable Melania Cohen Attending Clinician Unknown, Attending Attending Clinician Unavailable MELANIA GUERRERO Attending Clinician Unavailable Doctor Unassigned, [place] Attending Clinician Unavailable Osvaldo Sharma Attending Clinician Aliyah Angie CHARLES Attending Clinician [phone] Addie Cortez MD Attending Clinician OSVALDO EARLY Attending Clinician Unavailable Lyudmila Roy MD Attending Clinician [phone] Carlitos Perez MD Attending Clinician Helga Pitts MD Attending Clinician LYUDMILA ROY Attending Clinician Unavailable Ultrasound, Joni Attending Clinician Unavailable Harpreet Cherry MD Attending Clinician Vern Worthington MD Attending Clinician HARPREET CHERRY Attending Clinician Unavailable HARPREET CHERRY Attending Clinician Unavailable Adam Villela Attending Clinician Unavailable ANGIE LY Attending Clinician Unavailable Samantha Cordova MD Attending Clinician Rob Hannah CHARLES Attending Clinician Risk, Xim-Gghdb-Av/High Attending Clinician Unavailable Visit, Ang-chp Nurse Attending Clinician Unavailable Kelvin CROWDERP, Belkis Attending Clinician SAMANTHA CORDOVA Attending Clinician Unavailable Yin JULIAN, Tri Rios Attending Clinician Unavailable Lucita Muir LMSW Attending Clinician Liliane PAZ, Kavita Chavez Attending Clinician Jose Guadalupe Rodriguez MD, Lyudmila Admitting Clinician [phone] LYUDMILA ROY Admitting Clinician Unavailable Samantha Cordova MD Admitting Clinician Payers Payer Name Policy Type Policy Number Effective Date Expiration Date Stefany RODRIGUEZS [id number] 2019 HEALTH 00:00:00 EPIFANIO RODRIGUEZS [id number] 2019 00:00:00 Problems Condition Condition Condition Status Onset Resolution Last Treating Co mments Source Name Details Category Date Date Treatment Clinician Date 38 weeks 38 weeks Disease Active 2019-03 Unive rs gestation gestation 2-04 ity of of of 00:00: [place] 00 [facility] Branch Positive Positive Disease Active 2019-03 Unive rs GBS test GBS test 1- ity of 00:00: [place] 00 Medical Branch GDM GDM Disease Active 2019-03 Overview: Univer s (gestation (gestation 0-02 Formattin ity of al al 00:00: g of this [place] diabetes diabetes 00 note Medica l mellitus) mellitus) might be Br anch different from the original. Failed 1hr gtt 221mgdl Two vessel Two vessel Disease Active Overview : Univers cord cord 9-10 Formattin ity of 00:00: g of this [place] 00 note Medical might be Branch different from the original. Noted on usg Susceptibl Susceptibl Disease Active 2019- U nivers e to e to 804 ity of varicella var[place]ella 00:[place] (non-immun (non-immun 00 Me dical e), e), Branch currently currently Supervisio Supervisio Disease Active U nivers n of n of 8-03 ity of high-risk high-risk 00:[place] [facility] with with Branch insufficie insufficie nt nt care care Multiparit Multiparit Disease Active 2020-0 U nivers y y 10-13 ity of 00:00: [place] 00 Medical Branch History of History of Disease Active 2020-0 Overview : Univers 10-13 Formattin ity o f delivery delivery 00:00: g of this [place] 00 note Medical might be Branch different from the original. At 36 weeks due to GDM History of History of Disease Active 2020-0 U nivers gestationa gestationa 10-13 it y of l diabetes l diabetes 00:00[place] [facility] Obesity in Obesity in Disease Active 2020-0 U nivers 10-13 ity of 00:00: [place] 00 [facility] Branch Headache Headache Disease Active 2020-0 Unive rs in in 10-13 [place] of 00:[place] [facility] 36 weeks 36 weeks Disease Active 2019-0 Unive rs gestation gestation 10-11 ity of of of 00:00: [place] 00 [facility] Branch Urinary Urinary Disease Active 2019-0 Univers tract tract 7-18 ity of infection infection 00:00: [place] in mother in mother 00 [facility] during during Branch , , antepartum antepartum GDM, class GDM, class Disease Active 2019-0 U nivers A2 A2 7-18 ity of 00:00: [place] 00 [facility] Supervisio Supervisio Disease Active 2019-0 U nivers n of high n of high 7-18 ity of risk risk 00:00: [place] 00 [facility] in third in third Branch trimester trimester Polyhydram Polyhydram Disease Active 2019-0 U saravanan cruz, 7-18 ity of third third 00:00: [place] trimester, trimester, 00 Me dical single single Branch gestation gestation Excessive Excessive Disease Active 2019-0 Uni vers 7-18 ity of growth growth 00:00: [place] affecting affecting 00 [facility] management management Br anch of of in third in third trimester, trimester, single or single or unspecifie unspecifie d fetus d fetus History of History of Disease Active 2019-0 U nivers polyhydram polyhydram 7-18 it y of saravanan coe 00:00: [place] 00 Medical Branch Polyhydram Polyhydram Disease Active 2019-0 Overview : Univers nios, nios, 7-10 Noted on ity of antepartum antepartum 00:00: [place]g [place] complicati complicati 00 Me dical on on Branch Pyelectasi Pyelectasi Disease Active Overview : Univers s of fetus s of fetus 7-10 left it y of on on 00:00: [place] 00 Medica l ultrasound ultrasound Br anch 33 weeks 33 weeks Disease Active Unive rs gestation gestation 7-09 ity of of of 00:00: [place] 00 [facility] Branch GDM GDM Disease Active Overview: Univer s (gestation (gestation 5-24 Failed it y of al al 00:00: 1hr [place] diabetes diabetes 00 gttA1c Medica l mellitus) mellitus) 6.7mgdl [facility] Vaginal Vaginal Disease Active Univers yeast yeast 4-15 ity of infection infection 00:00: [place] Family Family Disease Active Univers history of history of 1-04 it y of autism autism 00:00: [place] 00 Medical Branch History of History of Disease Active Overview : Univers depression depression 04 Formattin ity of 00:00: g of this [place] note Medical might be Branch different from the original. Previous - denies today History of History of Disease Active Overview : Univers substance substance 04 Formattin i ty of abuse abuse 00:00: g of this [place] note Medical might be Branch different from the original. Denies current use - History of History of Disease Active Overview : Univers 04 Formattin ity of section section 00:00: g of this [place] note Medical might be Branch different from the original. x2 Influenza Influenza Disease Active Uni vers vaccinatio vaccinatio 1-04 it y of n declined n declined 00:00: [place] 00 [facility] Morbid Morbid Disease Active 2015-03 Univers obesity, obesity, 0-31 ity of unspecifie unspecifie 00:00: [place] d obesity d obesity 00 [facility] type type Branch [E66.01] [E66.01] Maternal Maternal Disease Active Unive rs varicella, varicella, 6-11 it y of non-immune non-immune 00:00: [place] 00 [place] [facility] Allergies, Adverse Reactions, Alerts Allergy Allergy Status Severity Reaction(s) Onset Inactive Treating Comm ents Source Name Type Date Date Clinician NO KNOWN Drug Active Univers ALLERGIE Class ity of S [place] [facility] Social History Social Habit Start Date Stop Date Quantity Comments Source ASSERTION 2019-06[facility]06 [facility] 00:[facility]00 [facility] History of tobacco Current smoker Un iversity of use [facility] Sexual orientation Univer sity of [facility] Alcohol intake 2022-12-25 2022-12-25 Current University 00:00:00 00:00:00 non-drinker of [facility] alcohol Branch (finding) Tobacco use and 2022-12-25 2022-12-25 Former smokeless Uni versity of exposure 00:00:00 00:00:00 tobacco user [place] [facility] [place] Exposure to 2020-01-13 2020-02-12 Not sure [facility] SARS-CoV-2 (event) 00:00:00 09:38:00 [facility] History of Social 2019-10-14 2019-10-14 Univers ity of function 00:00:00 00:00:00 [facility] Education 2018-10-11 2018-10-11 13 [facility] 00:[facility]:00 00:00:00 [facility] Sex [birth year] Universit y of 00:00:00 00:00:00 [facility] Smoking Status Start Date Stop Date Source Ex-smoker 2022-12-25 00:00:00 2022-12-25 00:00:00 Universi ty [facility] Never smoker [facility] Medications Ordered Filled Start Stop Current Ordering Indication Dosage Frequency Signature Comments Components Source Medication Medication Date Date Medication? Clinician (SIG) Name Name promethazin 2022-03 Yes [id number] 5mL Take 5 mL Univers e-dextromet 0-15 by mouth 4 it y of horphan 00:00: (four) [place] 6.25-15 00 times Medical mg/5 mL daily as Branch syrup needed for Cough. varicella 2019-03 Yes .5mL 0.5 mL, Unive rs virus 2-07 Subcutaneo ity of vaccine 12:14: us, [place] live 19 ONCE-PRIOR Medical (VARIVAX TO Branch (PF)) DISCHARGE, injection 1 dose, 0.5 mL Starting 02/17/20 at 0614, Until Discontinu ed, Routine, Give vaccine prior to discharge 2019-03 Yes [id number] 1{tbl} Take 1 Univers vitamin 2-07 tablet by ity of w/FA tablet 00:00: mouth [place] 00 daily. Medical Branch docusate 2019-03 Yes [id number] 240mg Take 1 U nivers calcium 240 2-07 capsule by it y of mg capsule 00:00: mouth once [place] 00 daily as Medical needed for Branch Constipati on. ferrous 2019-03 Yes [id number] 325mg Take 1 Un pamela sulfate 325 2-07 tablet by ity of mg (65 mg 00:00: mouth 2 [place] iron) 00 (two) Medical tablet times Branch daily. ibuprofen 2019-03 Yes [id number] 600mg Take 1 Univers 600 mg 2-07 tablet by ity of tablet 00:00: mouth [place] 00 every 6 Medical (six) Branch hours as needed (Pain). Take with food or milk. 2019-03 Yes [id number] 1{tbl} Take 1 Univers vitamin 2-07 tablet by ity of w/FA tablet 00:00: mouth [place] 00 daily. Medical Branch docusate 2019-03 Yes [id number] 240mg Take 1 U nivers calcium 240 2-07 capsule by it y of mg capsule 00:00: mouth once [place] 00 daily as Medical needed for Branch Constipati on. ferrous 2019-03 Yes [id number] 325mg Take 1 Un pamela sulfate 325 2-07 tablet by ity of mg (65 mg 00:00: mouth 2 [place] iron) 00 (two) Medical tablet times Branch daily. ibuprofen 2019-03 Yes [id number] 600mg Take 1 Univers 600 mg 2-07 tablet by ity of tablet 00:00: mouth [place] 00 every 6 Medical (six) Branch hours as needed (Pain). Take with food or milk. 2019-03 Yes [id number] 1{tbl} Take 1 Univers vitamin 2-07 tablet by ity of w/FA tablet 00:00: mouth [place] 00 daily. Medical Branch docusate 2019-03 Yes [id number] 240mg Take 1 U nivers calcium 240 2-07 capsule by it y of mg capsule 00:00: mouth once [place] 00 daily as Medical needed for Branch Constipati on. ferrous 2019-03 Yes [id number] 325mg Take 1 Un pamela sulfate 325 2-07 tablet by ity of mg (65 mg 00:00: mouth 2 [place] iron) 00 (two) Medical tablet times Branch daily. ibuprofen 2019-03 Yes [id number] 600mg Take 1 Univers 600 mg 2-07 tablet by ity of tablet 00:00: mouth [place] 00 every 6 Medical (six) Branch hours as needed (Pain). Take with food or milk. 2019-03 Yes [id number] 1{tbl} Take 1 Univers vitamin 2-07 tablet by ity of w/FA tablet 00:00: mouth [place] 00 daily. Medical Branch docusate 2019-03 Yes [id number] 240mg Take 1 U nivers calcium 240 2-07 capsule by it y of mg capsule 00:00: mouth once [place] 00 daily as Medical needed for Branch Constipati on. ferrous 2019-03 Yes [id number] 325mg Take 1 Un pamela sulfate 325 2-07 tablet by ity of mg (65 mg 00:00: mouth 2 [place] iron) 00 (two) Medical tablet times Branch daily. ibuprofen 2019-03 Yes [id number] 600mg Take 1 Univers 600 mg 2-07 tablet by ity of tablet 00:00: mouth [place] 00 every 6 Medical (six) Branch hours as needed (Pain). Take with food or milk. 2019-03 Yes [id number] 1{tbl} Take 1 Univers vitamin 2-07 tablet by ity of w/FA tablet 00:00: mouth [place] 00 daily. Medical Branch docusate 2019-03 Yes [id number] 240mg Take 1 U nivers calcium 240 2-07 capsule by it y of mg capsule 00:00: mouth once [place] 00 daily as Medical needed for Branch Constipati on. ferrous 2019-03 Yes [id number] 325mg Take 1 Un pamela sulfate 325 2-07 tablet by ity of mg (65 mg 00:00: mouth 2 [place] iron) 00 (two) Medical tablet times Branch daily. ibuprofen 2019-03 Yes [id number] 600mg Take 1 Univers 600 mg 2-07 tablet by ity of tablet 00:00: mouth [place] 00 every 6 Medical (six) Branch hours as needed (Pain). Take with food or milk. 2019-03 Yes [id number] 1{tbl} Take 1 Univers vitamin 2-07 tablet by ity of w/FA tablet 00:00: mouth [place] 00 daily. Medical Branch docusate 2019-03 Yes [id number] 240mg Take 1 U nivers calcium 240 2-07 capsule by it y of mg capsule 00:00: mouth once [place] 00 daily as Medical needed for Branch Constipati on. ferrous 2020 Yes [id number] 325mg Take 1 Un pamela sulfate 325 2-07 tablet by ity of mg (65 mg 00:00: mouth 2 [place] iron) 00 (two) Medical tablet times Branch daily. ibuprofen 2019-03 Yes [id number] 600mg Take 1 Univers 600 mg 2-07 tablet by ity of tablet 00:00: mouth [place] 00 every 6 Medical (six) Branch hours as needed (Pain). Take with food or milk. 2019-03 Yes [id number] 1{tbl} Take 1 Univers vitamin 2-07 tablet by ity of w/FA tablet 00:00: mouth [place] 00 daily. Medical Branch docusate 2019-03 Yes [id number] 240mg Take 1 U nivers calcium 240 2-07 capsule by it y of mg capsule 00:00: mouth once [place] 00 daily as Medical needed for Branch Constipati on. ferrous 2019-03 Yes [id number] 325mg Take 1 Un pamela sulfate 325 2-07 tablet by ity of mg (65 mg 00:00: mouth 2 [place] iron) 00 (two) Medical tablet times Branch daily. ibuprofen 2019-03 Yes [id number] 600mg Take 1 Univers 600 mg 2-07 tablet by ity of tablet 00:00: mouth [place] 00 every 6 Medical (six) Branch hours as needed (Pain). Take with food or milk. 2019-03 Yes [id number] 1{tbl} Take 1 Univers vitamin 2-07 tablet by ity of w/FA tablet 00:00: mouth [place] 00 daily. Medical Branch docusate 2019-03 Yes [id number] 240mg Take 1 U nivers calcium 240 2-07 capsule by it y of mg capsule 00:00: mouth once [place] 00 daily as Medical needed for Branch Constipati on. ferrous 2019-03 Yes [id number] 325mg Take 1 Un pamela sulfate 325 2-07 tablet by ity of mg (65 mg 00:00: mouth 2 [place] iron) 00 (two) Medical tablet times Branch daily. ibuprofen 2019-03 Yes [id number] 600mg Take 1 Univers 600 mg 2-07 tablet by ity of tablet 00:00: mouth [place] 00 every 6 Medical (six) Branch hours as needed (Pain). Take with food or milk. HYDROcodone 2019-03- No [id number] 1{tbl} Take 1 U nivers -acetaminop 2-07 12-15 tablet by it y of hen 5-325 00:00: 05:59 mouth [place] mg tablet 00 :00 every 6 Medical (six) Branch hours as needed (for pain) for up to 7 days. Do not exceed 3 grams of acetaminop hen in 24 hours. Indication s: acute pain HYDROcodone 2019-03 2020- No [id number] 1{tbl} Take 1 U nivers -acetaminop 2-07 12-15 tablet by it y of hen 5-325 00:00: 05:59 mouth [place] mg tablet 00 :00 every 6 Medical (six) Branch hours as needed (for pain) for up to 7 days. Do not exceed 3 grams of acetaminop hen in 24 hours. Indication s: acute pain bacitracin- 2019-03 Yes Topical Uni vers polymyxin 2-05 (Apply To ity o f b/nystatin/ 23:53: Affected [place] zinc oxide 41 Areas), Medica l ointment PRN, Branch 1:1:1 Starting (COMPOUNDED Sat ) 02/15/20 at 1753, Until Discontinu ed, Routine, as needed for skin tear rho(D) 2019-03 Yes 300ug 300 mcg, Univer s immune 2-04 Intramuscu ity of globulin 21:55: lar, ONCE, [place] (RHOGAM) 10 For 1 Medical syringe 300 dose, Branch mcg Conditiona l, Routine ondansetron 2019-03 Yes 4mg 4 mg, Slow Univers (ZOFRAN 2-04 IV Push, ity of (PF)) 21:55: Q8HPRN, [place] injection 4 03 Starting Medi luly mg Fri Branch 02/14/20 at 1555, Until Discontinu ed, Routine, Nausea and Vomiting (N/V) simethicone 2019-03 Yes 160mg 160 mg, Un pamela (GAS RELIEF 2-04 Oral, ity of (SIMETHICON 21:55: PC+HSPRN, [place] E)) 03 Starting Medical chewable Fri Branch tablet 160 02/14/20 at mg 1555, Until Discontinu ed, Routine, Gas HYDROcodone 2019-03 Yes 2{tbl} 2 tablet, Univers -acetaminop 2-04 Oral, ity of hen (NORCO 21:55: Q6HPRN, [place] 5) 5-325 mg 02 Starting Medi luly tablet 2 Fri Branch tablet 02/14/20 at 1555, Until Discontinu ed, Routine, Pain (scale 7-10), If uncontroll ed by Ibuprofen HYDROcodone 2019-03 Yes 1{tbl} 1 tablet, Univers -acetaminop 2-04 Oral, ity of hen (NORCO 21:55: Q6HPRN, [place] 5) 5-325 mg 02 Starting Medi luly tablet 1 Fri Branch tablet 02/14/20 at 1555, Until Discontinu ed, Routine, Pain (scale 4-6), If uncontroll ed by Ibuprofen ibuprofen 2019-03 Yes 600mg 600 mg, Univ ers (IBU) 2-04 Oral, ity of tablet 600 21:55: Q6HPRN, [place] mg 02 Starting Medical Fri Branch 02/14/20 at 1555, Until Discontinu ed, Routine, Pain (scale 1-3) human 2019-03 Yes .5mL 0.5 mL, Univers papillomav 2-04 Intramuscu ity of vac,9-abril(P 21:55: lar, [place] F) 02 ONCE-PRIOR Medical (GARDASIL-9 TO Branch ) syringe DISCHARGE, 0.5 mL 1 dose, Starting 02/14/20 at 1555, Until Discontinu ed, Routine, Give vaccine prior to discharge diphenhydrA 2019-03 Yes 25mg 25 mg, IV U nivers MINE-0.9 % 2-04 Piggyback, ity of sod.chlr 21:55: Administer [place] (BENADRYL) 02 over 30 Medica l 25 mg/50 mL Minutes, Bran ch piggyback Q6HPRN, 1 25 mg dose, Starting Mon02/14/20 at 1555, Until Discontinu ed, Routine, Itching diphenhydrA 2019-03 Yes 25mg 25 mg, Univ ers MINE 2-04 Oral, ity of (BENADRYL) 21:55: Q6HPRN, [place] tablet 25 02 Starting Medica l mg Fri Branch 02/14/20 at 1555, Until Discontinu ed, Routine, Sleep, Itching bisacodyL 2019-03 Yes 10mg 10 mg, Univer s (DULCOLAX) 2-04 Rectal, ity of suppository 21:55: QDAILYPRN, [place] 10 mg 02 Starting Medical Fri Branch 02/14/20 at 1555, Until Discontinu ed, Routine, Constipati on docusate 2019-03 Yes 240mg 240 mg, Unive rs calcium 2-04 Oral, ity of (SURFAK) 21:55: QDAILYPRN, [place] capsule 240 02 Starting Medi luly mg Fri Branch 02/14/20 at 1555, Until Discontinu ed, Routine, Constipati on magnesium 2019-03 Yes 30mL 30 mL, Univer s hydroxide 2-04 Oral, ity of (MILK OF 21:55: QDAILYPRN, [place] MAGNESIA) 02 Starting Medica l 400 mg/5 mL Fri Branch suspension 02/14/20 at 30 mL 1555, Until Discontinu ed, Routine, Constipati on ondansetron 2019-03 2020- No Slow IV Un pamela (ZOFRAN 04-16 Push, ONCE ity o f (PF)) 19:11: 20:00 INTRA [place] injection 00 :22 PROCEDURE, Medi luly Starting Branch 02/14/20 at 1311, Until Mon02/14/20 at 1400, Routine, Intra-op methylergon 2019-03 2020- No ONCE INTRA Univers ovine 2-04 PROCEDURE, ity of (METHERGINE 19:08: 20:00 Starting [place] ) injection 00 :22 Fri Medical 02/14/20 at Branch 1308, Until Mon02/14/20 at 1400, Routine, Intra-op LR 1000 mL 2019-03 2020- No CONTINUOUS Univers + oxytocin 2-06 22- PRN, ity of 40 units 40 18:54: 20:00 Starting [place] unit/ 1,000 00 :22 Fri Medical mL IV 02/14/20 at Branch Solution 1254, Until Mon02/14/20 at 1400, Routine, Intra-op LR 1000 mL 2019-03 2020- No IV Univer s + oxytocin 2-02-13 Infusion, ity of 20 units IV 18:52: 20:00 CONTINUOUS [place] Solution 00 :22 PRN, Medical Starting Branch Mon02/14/20 at 1252, Until Mon02/14/20 at 1400, KATALINA, Intra-op lidocaine-e 2019-03- No ONCE INTRA Univers pinephrine 04-16 PROCEDURE, it y of (XYLOCAINE 18:05: 20:00 [place] W/EPINEPHRI 00 :22 Fri Medical NE) 1.5 02/14/20 at Branch %-1:200,000 1205, injection Until Mon02/14/20 at 1400, Routine, Intra-op FENTanyl PF 2019-03- No Intratheca Univers (SUBLIMAZE 04-16- l, ONCE ity o f (PF)) 17:18: 20:00 INTRA [place] injection 00 :22 PROCEDURE, [facility] Starting Branch Mon02/14/20 at 1118, Until Mon02/14/20 at 1400, Routine, Intra-op morpHINE PF 2019-03- No Intratheca Univers (DURAMORPH- 04-16- l, ONCE ity of PF) 17:18: 20:00 INTRA [place] injection 00 :22 PROCEDURE, [facility] Starting Branch Mon02/14/20 at 1118, Until Mon02/14/20 at 1400, Routine, Intra-op bupivacaine 2019-03- No Intratheca Univers (preserv 04-16- l, ONCE ity of free) 17:18: 20:00 INTRA [place] (SENSORCAIN 00 :22 PROCEDURE, Me dical E MPF) 0.75 Starting Bran ch % (7.5 Fri mg/mL) 02/14/20 at injection 1118, Until Mon02/14/20 at 1400, Routine, Intra-op ketorolac 2019-03- No 30mg 30 mg, Unive rs (TORADOL) 04-16 Slow IV ity of injection 17:01: 20:49 Push, PRN, [place] 30 mg 47 :00 1 dose, Medical Starting Branch Mon02/14/20 at 1101, Until Discontinu ed, Routine, Pain (scale 7-10)
F aculty member approving Restricted medication : PONCE WEINBERG nalbuphine 2019-03 Yes 5mg 5 mg, Univer s (NUBAIN) 204 Intravenou ity o f injection 5 17:01: s, PRN, 1 [place] mg 06 dose, Medical Starting Branch 02/14/20 at 1101, Until Discontinu ed, Routine, Itching lactated 2019-03- No CONTINUOUS Un pamela ringers IV 04-16 PRN, ity of infusion 16:18: 20:00 [place] 00 :22 Fri Medical 02/14/20 at Branch 1018, Until Mon02/14/20 at 1400, Routine, Intra-op ceFAZolin 2019-03 No ONCE INTRA U nivers (ANCEF) 04-16 PROCEDURE, ity o f injection 16:18: 20:00 Starting [place] 00 :22 Fri Medical 02/14/20 at Branch 1018, Until Mon02/14/20 at 1400, KATALINA, Intra-op acetaminoph 2019-03 No 650mg 650 mg, U nivers en 04-16 Oral, ity of (TYLENOL) 14:30: 16:03 ONCE, 1 [place] tablet 650 00 :00 dose, Fri Medi luly mg 02/14/20 at Branch 0830, Routine lactated 2019-03- No 500mL at 999 Unive rs ringers IV 04-16 mL/hr, 500 it y of infusion 14:30: 16:04 mL, IV [place] 500 mL 00 :00 Infusion, Medical ONCE, 1 Branch dose, 02/14/20 at 0830, Routine ceFAZolin 2019-03 No 2000mg 2 g (2,000 Univers in dextrose 04-16 mg), IV ity of (iso-os) 14:29: 16:03 Piggyback, [place] (ANCEF) 2 44 :00 O.R. Medical gram/100 mL HOLDING Branc h Piggyback 2 ONCE, 1 g dose, Starting Mon02/14/20 at 0829, Until Discontinu ed, 100 mL
Reas on for Anti-Infec tive: Surgical Prophylaxi s
Surgi luly Prophylaxi s: TRIBAL DELEGATE
Duration of therapy: within 24 hours of surgery sodium 2019-03 2020- No 30mL 30 mL, Univers citrate-cit 04-16 Oral, ity of stephanie acid 14:29: 16:03 PRE-PROCED [place] (BICITRA) 44 :00 URE ONCE, Medic al 500-334 1 dose, Branch mg/5 mL Starting solution 30 Fri mL 02/14/20 at 0829, Until 02/16/20 at 2359, Routine, Surgery/Pr ocedure insulin NPH 2019-03 Yes [id number] Take 46 Univers (HUMULIN N 0-26 units SQ ity o f NPH U-100 00:00: AC [place] INSULIN) 00 breakfast Medica l 100 unit/mL and 16 Branch injection units SQ HS insulin NPH 2019-03 Yes [id number] Take 46 Univers (HUMULIN N 0-26 units SQ ity o f NPH U-100 00:00: AC [place] INSULIN) 00 breakfast Medica l 100 unit/mL and 16 Branch injection units SQ HS insulin NPH 2019-03 Yes [id number] Take 46 Univers (HUMULIN N 0-26 units SQ ity o f NPH U-100 00:00: AC [place] INSULIN) 00 breakfast Medica l 100 unit/mL and 16 Branch injection units SQ HS insulin NPH 2019-03 Yes [id number] Take 46 Univers (HUMULIN N 0-26 units SQ ity o f NPH U-100 00:00: AC [place] INSULIN) 00 breakfast Medica l 100 unit/mL and 16 Branch injection units SQ HS insulin NPH 2019-03 Yes [id number] Take 46 Univers (HUMULIN N 0-26 units SQ ity o f NPH U-100 00:00: AC [place] INSULIN) 00 breakfast Medica l 100 unit/mL and 16 Branch injection units SQ HS insulin NPH 2019-03 Yes [id number] Take 46 Univers (HUMULIN N 0-26 units SQ ity o f NPH U-100 00:00: AC [place] INSULIN) 00 breakfast Medica l 100 unit/mL and 16 Branch injection units SQ HS insulin NPH 2019-03 Yes [id number] Take 46 Univers (HUMULIN N 0-26 units SQ ity o f NPH U-100 00:00: AC [place] INSULIN) 00 breakfast Medica l 100 unit/mL and 16 Branch injection units SQ HS insulin NPH 2019-03 Yes [id number] Take 46 Univers (HUMULIN N 0-26 units SQ ity o f NPH U-100 00:00: AC [place] INSULIN) 00 breakfast Medica l 100 unit/mL and 16 Branch injection units SQ HS insulin NPH 2019-03 Yes [id number] Take 46 Univers (HUMULIN N 0-26 units SQ ity o f NPH U-100 00:00: AC [place] INSULIN) 00 breakfast Medica l 100 unit/mL and 16 Branch injection units SQ HS insulin NPH 2019-03 Yes [id number] Take 46 Univers (HUMULIN N 0-26 units SQ ity o f NPH U-100 00:00: AC [place] INSULIN) 00 breakfast Medica l 100 unit/mL and 16 Branch injection units SQ HS insulin NPH 2019- Yes [id number] Take 46 Univers (HUMULIN N 0-26 units SQ ity o f NPH U-100 00:00: AC [place] INSULIN) 00 breakfast Medica l 100 unit/mL and 16 Branch injection units SQ HS insulin NPH 2019-03 Yes [id number] Take 46 [facility] (HUMULIN N 0-26 units SQ ity o f NPH U-100 00:00: AC [place] INSULIN) 00 breakfast Medica l 100 unit/mL and 16 Branch injection units SQ HS insulin NPH 2019- Yes [id number] Take 46 [facility] (HUMULIN N 0-26 units SQ ity o f NPH U-100 00:00: AC [place] INSULIN) 00 breakfast Medica l 100 unit/mL and 16 Branch injection units SQ HS insulin NPH 2019-03 Yes [id number] Take 46 [facility] (HUMULIN N 0-26 units SQ ity o f NPH U-100 00:00: [place] INSULIN) 00 breakfast Medica l 100 unit/mL and 16 Branch injection units SQ HS insulin NPH 2019-03 Yes [id number] Take 46 [facility] (HUMULIN N 0-26 units SQ ity o f NPH U-100 00:00: [place] INSULIN) 00 breakfast Medica l 100 unit/mL and 16 Branch injection units SQ HS insulin NPH 2019- Yes [id number] Take 46 [facility] (HUMULIN N 0-26 units SQ ity o f NPH U-100 00:00: AC [place] INSULIN) 00 breakfast Medica l 100 unit/mL and 16 Branch injection units SQ HS insulin NPH 2019- Yes [id number] Take 46 [facility] (HUMULIN N 0-26 units SQ ity o f NPH U-100 00:00: [facility] [place] INSULIN) 00 breakfast Medica l 100 unit/mL and 16 Branch injection units SQ HS insulin NPH 2019- Yes [id number] Take 46 [facility] (HUMULIN N 0-26 units SQ ity o f NPH U-100 00:00: [facility] [place] INSULIN) 00 breakfast Medica l 100 unit/mL and 16 Branch injection units SQ HS insulin NPH 2020- Yes [id number] Take 46 [facility] (HUMULIN N 0-26 units SQ ity o f NPH U-100 00:00: [place] INSULIN) 00 breakfast Medica l 100 unit/mL and 16 Branch injection units SQ HS insulin NPH 2019- Yes [id number] Take 46 [facility] (HUMULIN N 0-26 units SQ ity o f NPH U-100 00:00: [facility] INSULIN) 00 breakfast Medica l 100 unit/mL and 16 Branch injection units SQ HS insulin NPH 2019- Yes [id number] Take 46 [facility] (HUMULIN N 0-26 units SQ ity o f NPH U-100 00:00: [facility] INSULIN) 00 breakfast Medica l 100 unit/mL and 16 Branch injection units SQ HS insulin NPH 2019- Yes [id number] Take 46 [facility] (HUMULIN N 0-26 units SQ ity o f NPH U-100 00:00: [facility] INSULIN) 00 breakfast Medica l 100 unit/mL and 16 Branch injection units SQ HS insulin NPH 2019- Yes [id number] Take 46 [facility] (HUMULIN N 0-26 units SQ ity o f NPH U-100 00:00: [facility] INSULIN) 00 breakfast Medica l 100 unit/mL and 16 Branch injection units SQ HS insulin 2019- Yes [id number] Take 46 [facility] vers regular 0-22 units SQ ity of human 00:00: [facility] (HUMULIN R 00 breakfast Medi luly REGULAR and 16 Branch U-100 units SQ INSULN) 100 HS unit/mL injection insulin 2019- Yes [id number] Take 22 [facility] vers regular 0-22 units SQ ity of human 00:00: [facility] (HUMULIN R 00 breakfast Medi luly REGULAR and 16 Branch U-100 units SQ INSULN) 100 AC supper unit/mL injection Insulin 2019- Yes [id number] Inject Univ ers Syringe-Nee 0-22 insulin sq it y of dle U-100 00:00: 3 times a [place] (BD INSULIN day Medical SYRINGE Branch ULTRA-FINE) 1 mL 31 gauge x 5/16 Syrg insulin 2019- Yes [id number] Take 22 [facility] vers regular 0-22 units SQ ity of human 00:00: [facility] (HUMULIN R 00 breakfast Medi luly REGULAR and 16 Branch U-100 units SQ INSULN) 100 AC supper unit/mL injection Insulin 2020- Yes [id number] Inject Univ ers Syringe-Nee 0-22 insulin sq it y of dle U-100 00:00: 3 times a [place] (BD INSULIN Medical SYRINGE Branch ULTRA-FINE) 1 mL 31 gauge x 5/16 Syrg insulin 2020- Yes [id number] Take 22 [facility] vers regular 0-22 units SQ ity of human 00:00: [facility] (HUMULIN R 00 breakfast Medi luly REGULAR and 16 Branch U-100 units SQ INSULN) 100 AC supper unit/mL injection Insulin 2020- Yes [id number] Inject Univ ers Syringe-Nee 0-22 insulin sq it y of dle U-100 00:00: 3 times a [place] (BD INSULIN Medical SYRINGE Branch ULTRA-FINE) 1 mL 31 gauge x 5/16 Syrg insulin 2020- Yes [id number] Take 22 [facility] vers regular 0-22 units SQ ity of human 00:00: [facility] (HUMULIN R 00 breakfast Medi luly REGULAR and 16 Branch U-100 units SQ INSULN) 100 AC supper unit/mL injection Insulin 2019- Yes [id number] Inject Univ ers Syringe-Nee 0-22 insulin sq it y of dle U-100 00:00: 3 times a [place] (BD INSULIN Medical SYRINGE Branch ULTRA-FINE) 1 mL 31 gauge x 5/16 Syrg insulin 2020- Yes [id number] Take 22 [facility] vers regular 0-22 units SQ ity of human 00:00: [facility] (HUMULIN R 00 breakfast Medi luly REGULAR and 16 Branch U-100 units SQ INSULN) 100 AC supper unit/mL injection Insulin 2019- Yes [id number] Inject Univ ers Syringe-Nee 0-22 insulin sq it y of dle U-100 00:00: 3 times a [place] (BD INSULIN Medical SYRINGE Branch ULTRA-FINE) 1 mL 31 gauge x 5/16 Syrg insulin 2020- Yes [id number] Take 22 [facility] vers regular 0-22 units SQ ity of human 00:00: [facility] [place] (HUMULIN R 00 breakfast Medi luly REGULAR and 16 Branch U-100 units SQ INSULN) 100 AC supper unit/mL injection Insulin 2020- Yes [id number] Inject Univ ers Syringe-Nee 0-22 insulin sq it y of dle U-100 00:00: 3 times a [place] (BD INSULIN day Medical SYRINGE Branch ULTRA-FINE) 1 mL 31 gauge x 5/16 Syrg insulin 2020-1 Yes [id number] Take 22 [facility] vers regular 0-22 units SQ ity of human 00:00: [facility] [place] (HUMULIN R 00 breakfast Medi luly REGULAR and 16 Branch U-100 units SQ INSULN) 100 AC supper unit/mL injection Insulin 2020-1 Yes [id number] Inject Univ ers Syringe-Nee 0-22 insulin sq it y of dle U-100 00:00: 3 times a [place] (BD INSULIN day Medical SYRINGE Branch ULTRA-FINE) 1 mL 31 gauge x 5/16 Syrg insulin 2020-1 Yes [id number] Take 22 [facility] vers regular 0-22 units SQ ity of human 00:00: [facility] [place] (HUMULIN R 00 breakfast Medi luly REGULAR and 16 Branch U-100 units SQ INSULN) 100 AC supper unit/mL injection Insulin 2020-1 Yes [id number] Inject Univ ers Syringe-Nee 0-22 insulin sq it y of dle U-100 00:00: 3 times a [place] (BD INSULIN day Medical SYRINGE Branch ULTRA-FINE) 1 mL 31 gauge x 5/16 Syrg insulin 2020-1 Yes [id number] Take 22 [facility] vers regular 0-22 units SQ ity of human 00:00: [facility] (HUMULIN R 00 breakfast Medi luly REGULAR and 16 Branch U-100 units SQ INSULN) 100 AC supper unit/mL injection Insulin 2020-1 Yes [id number] Inject Univ ers Syringe-Nee 0-22 insulin sq it y of dle U-100 00:00: 3 times a [place] (BD INSULIN Medical SYRINGE Branch ULTRA-FINE) 1 mL 31 gauge x 5/16 Syrg insulin 2020-1 Yes [id number] Take 22 [facility] vers regular 0-22 units SQ ity of human 00:00: [facility] [place] (HUMULIN R 00 breakfast Medi luly REGULAR and 16 Branch U-100 units SQ INSULN) 100 AC supper unit/mL injection Insulin 2020-1 Yes [id number] Inject Univ ers Syringe-Nee 0-22 insulin sq it y of dle U-100 00:00: 3 times a [place] (BD INSULIN day Medical SYRINGE Branch ULTRA-FINE) 1 mL 31 gauge x 5/16 Syrg insulin 2020-1 Yes [id number] Take 22 [facility] vers regular 0-22 units SQ ity of human 00:00: [facility] [place] (HUMULIN R 00 breakfast Medi luly REGULAR and 16 Branch U-100 units SQ INSULN) 100 AC supper unit/mL injection Insulin 2020-1 Yes [id number] Inject Univ ers Syringe-Nee 0-22 insulin sq it y of dle U-100 00:00: 3 times a [place] (BD INSULIN day Medical SYRINGE Branch ULTRA-FINE) 1 mL 31 gauge x 5/16 Syrg insulin 2020-1 Yes [id number] Take 22 [facility] vers regular 0-22 units SQ ity of human 00:00: [facility] [place] (HUMULIN R 00 breakfast Medi luly REGULAR and 16 Branch U-100 units SQ INSULN) 100 AC supper unit/mL injection Insulin 2020-1 Yes [id number] Inject Univ ers Syringe-Nee 0-22 insulin sq it y of dle U-100 00:00: 3 times a [place] (BD INSULIN Medical SYRINGE Branch ULTRA-FINE) 1 mL 31 gauge x 5/16 Syrg insulin 2020-1 Yes [id number] Take 22 [facility] vers regular 0-22 units SQ ity of human 00:00: [facility] (HUMULIN R 00 breakfast Medi luly REGULAR and 16 Branch U-100 units SQ INSULN) 100 AC supper unit/mL injection Insulin 2020-1 Yes [id number] Inject Univ ers Syringe-Nee 0-22 insulin sq it y of dle U-100 00:00: 3 times a [place] (BD INSULIN Medical SYRINGE Branch ULTRA-FINE) 1 mL 31 gauge x 5/16 Syrg insulin 2020-1 Yes [id number] Take 22 [facility] vers regular 0-22 units SQ ity of human 00:00: [facility] (HUMULIN R 00 breakfast Medi luly REGULAR and 16 Branch U-100 units SQ INSULN) 100 AC supper unit/mL injection Insulin 2020-1 Yes [id number] Inject Univ ers Syringe-Nee 0-22 insulin sq it y of dle U-100 00:00: 3 times a [place] (BD INSULIN day Medical SYRINGE Branch ULTRA-FINE) 1 mL 31 gauge x 5/16 Syrg insulin 2020-1 Yes [id number] Take 22 [facility] vers regular 0-22 units SQ ity of human 00:00: [facility] [place] (HUMULIN R 00 breakfast Medi luly REGULAR and 16 Branch U-100 units SQ INSULN) 100 AC supper unit/mL injection Insulin 2020- Yes [id number] Inject Univ ers Syringe-Nee 0-22 insulin sq it y of dle U-100 00:00: 3 times a [place] (BD INSULIN Medical SYRINGE Branch ULTRA-FINE) 1 mL 31 gauge x 5/16 Syrg insulin 2020- Yes [id number] Take 22 [facility] vers regular 0-22 units SQ ity of human 00:00: [facility] [place] (HUMULIN R 00 breakfast Medi luly REGULAR and 16 Branch U-100 units SQ INSULN) 100 AC supper unit/mL injection Insulin 2019- Yes [id number] Inject Univ ers Syringe-Nee 0-22 insulin sq it y of dle U-100 00:00: 3 times a [place] (BD INSULIN Medical SYRINGE Branch ULTRA-FINE) 1 mL 31 gauge x 5/16 Syrg insulin 2019- Yes [id number] Take 22 [facility] vers regular 0-22 units SQ ity of human 00:00: [facility] (HUMULIN R 00 breakfast Medi luly REGULAR and 16 Branch U-100 units SQ INSULN) 100 AC supper unit/mL injection Insulin 2019- Yes [id number] Inject Univ ers Syringe-Nee 0-22 insulin sq it y of dle U-100 00:00: 3 times a [place] (BD INSULIN Medical SYRINGE Branch ULTRA-FINE) 1 mL 31 gauge x 5/16 Syrg insulin 2020- Yes [id number] Take 22 [facility] vers regular 0-22 units SQ ity of human 00:00: [facility] (HUMULIN R 00 breakfast Medi luly REGULAR and 16 Branch U-100 units SQ INSULN) 100 AC supper unit/mL injection Insulin 2019- Yes [id number] Inject Univ ers Syringe-Nee 0-22 insulin sq it y of dle U-100 00:00: 3 times a [place] (BD INSULIN Medical SYRINGE Branch ULTRA-FINE) 1 mL 31 gauge x 5/16 Syrg insulin 2020- Yes [id number] Take 22 [facility] vers regular 0-22 units SQ ity of human 00:00: [facility] [place] (HUMULIN R 00 breakfast Medi luly REGULAR and 16 Branch U-100 units SQ INSULN) 100 AC supper unit/mL injection Insulin 2020- Yes [id number] Inject Univ ers Syringe-Nee 0-22 insulin sq it y of dle U-100 00:00: 3 times a [place] (BD INSULIN day Medical SYRINGE Branch ULTRA-FINE) 1 mL 31 gauge x 5/16 Syrg insulin 2020-1 Yes [id number] Take 22 [facility] vers regular 0-22 units SQ ity of human 00:00: [facility] [place] (HUMULIN R 00 breakfast Medi luly REGULAR and 16 Branch U-100 units SQ INSULN) 100 AC supper unit/mL injection Insulin 2020-1 Yes [id number] Inject Univ ers Syringe-Nee 0-22 insulin sq it y of dle U-100 00:00: 3 times a [place] (BD INSULIN day Medical SYRINGE Branch ULTRA-FINE) 1 mL 31 gauge x 5/16 Syrg insulin 2020-1 Yes [id number] Take 22 [facility] vers regular 0-22 units SQ ity of human 00:00: [facility] [place] (HUMULIN R 00 breakfast Medi luly REGULAR and 16 Branch U-100 units SQ INSULN) 100 AC supper unit/mL injection Insulin 2020-1 Yes [id number] Inject Univ ers Syringe-Nee 0-22 insulin sq it y of dle U-100 00:00: 3 times a [place] (BD INSULIN day Medical SYRINGE Branch ULTRA-FINE) 1 mL 31 gauge x 5/16 Syrg insulin 2020-1 Yes [id number] Take 22 [facility] vers regular 0-22 units SQ ity of human 00:00: [facility] (HUMULIN R 00 breakfast Medi luly REGULAR and 16 Branch U-100 units SQ INSULN) 100 AC supper unit/mL injection Insulin 2020-1 Yes [id number] Inject Univ ers Syringe-Nee 0-22 insulin sq it y of dle U-100 00:00: 3 times a [place] (BD INSULIN day Medical SYRINGE Branch ULTRA-FINE) 1 mL 31 gauge x 5/16 Syrg insulin 2020-1 Yes [id number] Take 22 [facility] vers regular 0-22 units SQ ity of human 00:00: [facility] [place] (HUMULIN R 00 breakfast Medi luly REGULAR and 16 Branch U-100 units SQ INSULN) 100 AC supper unit/mL injection Insulin 2020-1 Yes [id number] Inject Univ ers Syringe-Nee 0-22 insulin sq it y of dle U-100 00:00: 3 times a [place] [facility] (BD INSULIN day Medical SYRINGE Branch ULTRA-FINE) 1 mL 31 gauge x 5/16 Syrg insulin 2020-1 Yes [id number] Take 22 [facility] vers regular 0-22 units SQ ity of human 00:00: [facility] (HUMULIN R 00 breakfast Medi luly REGULAR and 16 Branch U-100 units SQ INSULN) 100 AC supper unit/mL injection Insulin 2019-03 Yes [id number] Inject Univ ers Syringe-Nee 0-22 insulin sq it y of dle U-100 00:00: 3 times a [place] (BD INSULIN 00 day Medical SYRINGE Branch ULTRA-FINE) 1 mL 31 gauge x 5/16 Syrg insulin 2019-03 Yes [id number] Take 22 [facility] vers regular 0-22 units SQ ity of human 00:00: [facility] (HUMULIN R 00 breakfast Medi luly REGULAR and 16 Branch U-100 units SQ INSULN) 100 AC supper unit/mL injection Insulin 2019-03 Yes [id number] Inject Univ ers Syringe-Nee 0-22 insulin sq it y of dle U-100 00:00: 3 times a [place] [facility] (BD INSULIN 00 day Medical SYRINGE Branch ULTRA-FINE) 1 mL 31 gauge x 5/16 Syrg insulin 2019-03 2020- No [id number] Take 22 [facility] [place] regular 0-22 12-07 units SQ ity of human 00:00: 00:00 [facility] (HUMULIN R 00 :00 breakfast Medi luly REGULAR and 16 Branch U-100 units SQ INSULN) 100 AC supper unit/mL injection Insulin 2019-03 2020- No [id number] Inject Uni vers Syringe-Nee 0-22 12-07 insulin sq i ty of dle U-100 00:00: 00:00 3 times [place] (BD INSULIN 00 :00 day Medical SYRINGE Branch ULTRA-FINE) 1 mL 31 gauge x 5/16 Syrg insulin 2019-03 2020- No [id number] Take 46 [facility] [place] regular 0-22 10-26 units SQ ity of human 00:00: 00:00 [facility] (HUMULIN R 00 :00 breakfast Medi luly REGULAR and 16 Branch U-100 units SQ INSULN) 100 HS unit/mL injection insulin 2019-03 2020- No [id number] Take 46 [facility] [place] regular 0-22 10-26 units SQ ity of human 00:00: 00:00 [facility] (HUMULIN R 00 :00 breakfast Medi luly REGULAR and 16 Branch U-100 units SQ INSULN) 100 HS unit/mL injection lancets 2019-03 Yes [id number] Check Unive rs (FREESTYLE 0-07 blood ity of LANCETS) 28 00:00: glucose 4x [place] gauge Misc 00 daily Medical Branch Blood-Gluco 2020- Yes [id number] Check U nivers se Meter 0-07 blood ity of (FREESTYLE 00:00: glucose 4x [place] LITE METER) 00 daily Medical Kit Branch blood sugar 2020- Yes [id number] Check U nivers diagnostic 0-07 blood ity of (FREESTYLE 00:00: glucose 4x [place] LITE 00 daily Medical STRIPS) Branch strip lancets 2019-03 Yes [id number] Check Unive rs (FREESTYLE 0-07 blood ity of LANCETS) 28 00:00: glucose 4x [place] gauge Misc 00 daily Medical Branch Blood-Gluco 2020- Yes [id number] Check U nivers se Meter 0-07 blood ity of (FREESTYLE 00:00: glucose 4x [place] LITE METER) 00 daily Medical Kit Branch blood sugar 2019- Yes [id number] Check U nivers diagnostic 0-07 blood ity of (FREESTYLE 00:00: glucose 4x [place] LITE 00 daily Medical STRIPS) Branch strip lancets 2019-03 Yes [id number] Check Unive rs (FREESTYLE 0-07 blood ity of LANCETS) 28 00:00: glucose 4x [place] gauge Misc 00 daily Medical Branch Blood-Gluco 2020- Yes [id number] Check U nivers se Meter 0-07 blood ity of (FREESTYLE 00:00: glucose 4x [place] LITE METER) 00 daily Medical Kit Branch blood sugar 2020- Yes [id number] Check U nivers diagnostic 0-07 blood ity of (FREESTYLE 00:00: glucose 4x [place] LITE 00 daily Medical STRIPS) Branch strip lancets 2019-03 Yes [id number] Check Unive rs (FREESTYLE 0-07 blood ity of LANCETS) 28 00:00: glucose 4x [place] gauge Misc 00 daily Medical Branch Blood-Gluco 2020- Yes [id number] Check U nivers se Meter 0-07 blood ity of (FREESTYLE 00:00: glucose 4x [place] LITE METER) 00 daily Medical Kit Branch blood sugar 2020- Yes [id number] Check U nivers diagnostic 0-07 blood ity of (FREESTYLE 00:00: glucose 4x [place] LITE 00 daily Medical STRIPS) Branch strip lancets 2020- Yes [id number] Check Unive rs (FREESTYLE 0-07 blood ity of LANCETS) 28 00:00: glucose 4x [place] gauge Misc 00 daily Medical Branch Blood-Gluco 2020- Yes [id number] Check U nivers se Meter 0-07 blood ity of (FREESTYLE 00:00: glucose 4x [place] LITE METER) 00 daily Medical Kit Branch blood sugar 2019-03 Yes [id number] Check U nivers diagnostic 0-07 blood ity of (FREESTYLE 00:00: glucose 4x [place] LITE 00 daily Medical STRIPS) Branch strip lancets 2019-03 Yes [id number] Check Unive rs (FREESTYLE 0-07 blood ity of LANCETS) 28 00:00: glucose 4x [place] gauge Misc 00 daily Medical Branch Blood-Gluco 2019- Yes [id number] Check U nivers se Meter 0-07 blood ity of (FREESTYLE 00:00: glucose 4x [place] LITE METER) 00 daily Medical Kit Branch blood sugar 2019- Yes [id number] Check U nivers diagnostic 0-07 blood ity of (FREESTYLE 00:00: glucose 4x [place] LITE 00 daily Medical STRIPS) Branch strip lancets 2019-03 Yes [id number] Check Unive rs (FREESTYLE 0-07 blood ity of LANCETS) 28 00:00: glucose 4x [place] gauge Misc 00 daily Medical Branch Blood-Gluco 2019- Yes [id number] Check U nivers se Meter 0-07 blood ity of (FREESTYLE 00:00: glucose 4x [place] LITE METER) 00 daily Medical Kit Branch blood sugar 2020- Yes [id number] Check U nivers diagnostic 0-07 blood ity of (FREESTYLE 00:00: glucose 4x [place] LITE 00 daily Medical STRIPS) Branch strip lancets 2019-03 Yes [id number] Check Unive rs (FREESTYLE 0-07 blood ity of LANCETS) 28 00:00: glucose 4x [place] gauge Misc 00 daily Medical Branch Blood-Gluco 2020- Yes [id number] Check U nivers se Meter 0-07 blood ity of (FREESTYLE 00:00: glucose 4x [place] LITE METER) 00 daily Medical Kit Branch blood sugar 2020- Yes [id number] Check U nivers diagnostic 0-07 blood ity of (FREESTYLE 00:00: glucose 4x [place] LITE 00 daily Medical STRIPS) Branch strip lancets 2019-03 Yes [id number] Check Unive rs (FREESTYLE 0-07 blood ity of LANCETS) 28 00:00: glucose 4x [place] gauge Misc 00 daily Medical Branch Blood-Gluco 2019- Yes [id number] Check U nivers se Meter 0-07 blood ity of (FREESTYLE 00:00: glucose 4x [place] LITE METER) 00 daily Medical Kit Branch blood sugar 2019-03 Yes [id number] Check U nivers diagnostic 0-07 blood ity of (FREESTYLE 00:00: glucose 4x [place] LITE 00 daily Medical STRIPS) Branch strip lancets 2019-03 Yes [id number] Check Unive rs (FREESTYLE 0-07 blood ity of LANCETS) 28 00:00: glucose 4x [place] gauge Misc 00 daily Medical Branch Blood-Gluco 2019-03 Yes [id number] Check U nivers se Meter 0-07 blood ity of (FREESTYLE 00:00: glucose 4x [place] LITE METER) 00 daily Medical Kit Branch blood sugar 2019-03 Yes [id number] Check U nivers diagnostic 0-07 blood ity of (FREESTYLE 00:00: glucose 4x [place] LITE 00 daily Medical STRIPS) Branch strip lancets 2019-03 Yes [id number] Check Unive rs (FREESTYLE 0-07 blood ity of LANCETS) 28 00:00: glucose 4x [place] gauge Misc 00 daily Medical Branch Blood-Gluco 2019-03 Yes [id number] Check U nivers se Meter 0-07 blood ity of (FREESTYLE 00:00: glucose 4x [place] LITE METER) 00 daily Medical Kit Branch blood sugar 2019-03 Yes [id number] Check U nivers diagnostic 0-07 blood ity of (FREESTYLE 00:00: glucose 4x [place] LITE 00 daily Medical STRIPS) Branch strip lancets 2019-03 Yes [id number] Check Unive rs (FREESTYLE 0-07 blood ity of LANCETS) 28 00:00: glucose 4x [place] gauge Misc 00 daily Medical Branch Blood-Gluco 2019-03 Yes [id number] Check U nivers se Meter 0-07 blood ity of (FREESTYLE 00:00: glucose 4x [place] LITE METER) 00 daily Medical Kit Branch blood sugar 2019-03 Yes [id number] Check U nivers diagnostic 0-07 blood ity of (FREESTYLE 00:00: glucose 4x [place] LITE 00 daily Medical STRIPS) Branch strip lancets 2019-03 Yes [id number] Check Unive rs (FREESTYLE 0-07 blood ity of LANCETS) 28 00:00: glucose 4x [place] gauge Misc 00 daily Medical Branch Blood-Gluco 2019-03 Yes [id number] Check U nivers se Meter 0-07 blood ity of (FREESTYLE 00:00: glucose 4x [place] LITE METER) 00 daily Medical Kit Branch blood sugar 2019-03 Yes [id number] Check U nivers diagnostic 0-07 blood ity of (FREESTYLE 00:00: glucose 4x [place] LITE 00 daily Medical STRIPS) Branch strip lancets 2019-03 Yes [id number] Check Unive rs (FREESTYLE 0-07 blood ity of LANCETS) 28 00:00: glucose 4x [place] gauge Misc daily Medical Branch Blood-Gluco 2019- Yes [id number] Check U nivers se Meter 0-07 blood ity of (FREESTYLE 00:00: glucose 4x [place] LITE METER) daily Medical Kit Branch blood sugar 2019-03 Yes [id number] Check U nivers diagnostic 0-07 blood ity of (FREESTYLE 00:00: glucose 4x [place] LITE 00 daily Medical STRIPS) Branch strip lancets 2019-03 Yes [id number] Check Unive rs (FREESTYLE 0-07 blood ity of LANCETS) 28 00:00: glucose 4x [place] gauge Misc daily Medical Branch Blood-Gluco 2019-03 Yes [id number] Check U nivers se Meter 0-07 blood ity of (FREESTYLE 00:00: glucose 4x [place] LITE METER) 00 daily Medical Kit Branch blood sugar 2019-03 Yes [id number] Check U nivers diagnostic 0-07 blood ity of (FREESTYLE 00:00: glucose 4x [place] LITE 00 daily Medical STRIPS) Branch strip lancets 2019-03 Yes [id number] Check Unive rs (FREESTYLE 0-07 blood ity of LANCETS) 28 00:00: glucose 4x [place] gauge Misc 00 daily Medical Branch Blood-Gluco 2020- Yes [id number] Check U nivers se Meter 0-07 blood ity of (FREESTYLE 00:00: glucose 4x [place] LITE METER) 00 daily Medical Kit Branch blood sugar 2019-03 Yes [id number] Check U nivers diagnostic 0-07 blood ity of (FREESTYLE 00:00: glucose 4x [place] LITE 00 daily Medical STRIPS) Branch strip lancets 2019-03 Yes [id number] Check Unive rs (FREESTYLE 0-07 blood ity of LANCETS) 28 00:00: glucose 4x [place] gauge Misc 00 daily Medical Branch Blood-Gluco 2019-03 Yes [id number] Check U nivers se Meter 0-07 blood ity of (FREESTYLE 00:00: glucose 4x [place] LITE METER) 00 daily Medical Kit Branch blood sugar 2019-03 Yes [id number] Check U nivers diagnostic 0-07 blood ity of (FREESTYLE 00:00: glucose 4x [place] LITE 00 daily Medical STRIPS) Branch strip lancets 2019-03 Yes [id number] Check Unive rs (FREESTYLE 0-07 blood ity of LANCETS) 28 00:00: glucose 4x [place] gauge Misc 00 daily Medical Branch Blood-Gluco 2019- Yes [id number] Check U nivers se Meter 0-07 blood ity of (FREESTYLE 00:00: glucose 4x [place] LITE METER) 00 daily Medical Kit Branch blood sugar 2019-03 Yes [id number] Check U nivers diagnostic 0-07 blood ity of (FREESTYLE 00:00: glucose 4x [place] LITE 00 daily Medical STRIPS) Branch strip lancets 2019-03 Yes [id number] Check Unive rs (FREESTYLE 0-07 blood ity of LANCETS) 28 00:00: glucose 4x [place] gauge Misc 00 daily Medical Branch Blood-Gluco 2019- Yes [id number] Check U nivers se Meter 0-07 blood ity of (FREESTYLE 00:00: glucose 4x [place] LITE METER) 00 daily Medical Kit Branch blood sugar 2019-03 Yes [id number] Check U nivers diagnostic 0-07 blood ity of (FREESTYLE 00:00: glucose 4x [place] LITE 00 daily Medical STRIPS) Branch strip lancets 2020- Yes [id number] Check Unive rs (FREESTYLE 0-07 blood ity of LANCETS) 28 00:00: glucose 4x [place] gauge Misc 00 daily Medical Branch Blood-Gluco 2020- Yes [id number] Check U nivers se Meter 0-07 blood ity of (FREESTYLE 00:00: glucose 4x [place] LITE METER) 00 daily Medical Kit Branch blood sugar 2019-03 Yes [id number] Check U nivers diagnostic 0-07 blood ity of (FREESTYLE 00:00: glucose 4x [place] LITE 00 daily Medical STRIPS) Branch strip lancets 2019-03 Yes [id number] Check Unive rs (FREESTYLE 0-07 blood ity of LANCETS) 28 00:00: glucose 4x [place] gauge Misc 00 daily Medical Branch Blood-Gluco 2019- Yes [id number] Check U nivers se Meter 0-07 blood ity of (FREESTYLE 00:00: glucose 4x [place] LITE METER) 00 daily Medical Kit Branch blood sugar 2019- Yes [id number] Check U nivers diagnostic 0-07 blood ity of (FREESTYLE 00:00: glucose 4x [place] LITE 00 daily Medical STRIPS) Branch strip lancets 2019-03 Yes [id number] Check Unive rs (FREESTYLE 0-07 blood ity of LANCETS) 28 00:00: glucose 4x [place] gauge Misc 00 daily Medical Branch Blood-Gluco 2019- Yes [id number] Check U nivers se Meter 0-07 blood ity of (FREESTYLE 00:00: glucose 4x [place] LITE METER) 00 daily Medical Kit Branch blood sugar 2020 Yes [id number] Check U nivers diagnostic 0-07 blood ity of (FREESTYLE 00:00: glucose 4x [place] LITE 00 daily Medical STRIPS) Branch strip lancets 2019-03 Yes [id number] Check Unive rs (FREESTYLE 0-07 blood ity of LANCETS) 28 00:00: glucose 4x [place] gauge Misc 00 daily Medical Branch Blood-Gluco 2020- Yes [id number] Check U nivers se Meter 0-07 blood ity of (FREESTYLE 00:00: glucose 4x [place] LITE METER) 00 daily Medical Kit Branch blood sugar 2020- Yes [id number] Check U nivers diagnostic 0-07 blood ity of (FREESTYLE 00:00: glucose 4x [place] LITE 00 daily Medical STRIPS) Branch strip lancets 2019-03 Yes [id number] Check Unive rs (FREESTYLE 0-07 blood ity of LANCETS) 28 00:00: glucose 4x [place] gauge Misc 00 daily Medical Branch Blood-Gluco 2019- Yes [id number] Check [facility] nivers se Meter 0-07 blood ity of (FREESTYLE 00:00: glucose 4x [place] LITE METER) 00 daily Medical Kit Branch blood sugar 2019-03 Yes [id number] Check [facility] nivers diagnostic 0-07 blood ity of (FREESTYLE 00:00: glucose 4x [place] LITE 00 daily Medical STRIPS) Branch strip lancets 2019-03 Yes [id number] Check Unive rs (FREESTYLE 0-07 blood ity of LANCETS) 28 00:00: glucose 4x [place] gauge Misc daily Medical Branch Blood-Gluco 2019- Yes [id number] Check [facility] nivers se Meter 0-07 blood ity of (FREESTYLE 00:00: glucose 4x [place] LITE METER) 00 daily Medical Kit [facility] blood sugar 2019-03 Yes [id number] Check [facility] nivers diagnostic 0-07 blood ity of (FREESTYLE 00:00: glucose 4x [place] LITE 00 daily Medical STRIPS) Branch strip lancets 2019-03 Yes [id number] Check Unive rs (FREESTYLE 0-07 blood ity of LANCETS) 28 00:00: glucose 4x [place] gauge Misc 00 daily Medical Branch Blood-Gluco 2019- Yes [id number] Check [facility] nivers se Meter 0-07 blood ity of (FREESTYLE 00:00: glucose 4x [place] LITE METER) 00 daily Medical Kit [facility] blood sugar 2019-03 Yes [id number] Check [facility] diagnostic 0-07 blood ity of (FREESTYLE 00:00: glucose 4x [place] LITE 00 daily Medical STRIPS) Branch strip lancets 2019-03 Yes [id number] Check Unive rs (FREESTYLE 0-07 blood ity of LANCETS) 28 00:00: glucose 4x [place] gauge Misc 00 daily Medical Branch Blood-Gluco 2020- Yes [id number] Check [facility] n[facility] se Meter 0-07 blood ity of (FREESTYLE 00:00: glucose 4x [place] LITE METER) 00 daily Medical Kit [facility] blood sugar 2019-03 Yes [id number] Check [facility] diagnostic 0-07 blood ity of (FREESTYLE 00:00: glucose 4x [place] LITE 00 daily Medical STRIPS) Branch strip lancets 2019-03 Yes [id number] Check Unive rs (FREESTYLE 0-07 blood ity of LANCETS) 28 00:00: glucose 4x [place] gauge Misc 00 daily Medical Branch Blood-Gluco 2019-03 Yes [id number] Check [facility] nivers se Meter 0-07 blood ity of (FREESTYLE 00:00: glucose 4x [place] LITE METER) 00 daily Medical Kit [facility] blood sugar 2019-03 Yes [id number] Check [facility] diagnostic 0-07 blood ity of (FREESTYLE 00:00: glucose 4x [place] LITE 00 daily Medical STRIPS) Branch strip lancets 2019-03 Yes [id number] Check Unive rs (FREESTYLE 0-07 blood ity of LANCETS) 28 00:00: glucose 4x [place] gauge Misc 00 daily Medical Branch Blood-Gluco 2019- Yes [id number] Check [facility] nivers se Meter 0-07 blood ity of (FREESTYLE 00:00: glucose 4x [place] LITE METER) 00 daily Medical Kit [facility] blood sugar 2019-03 Yes [id number] Check [facility] diagnostic 0-07 blood ity of (FREESTYLE 00:00: glucose 4x [place] LITE 00 daily Medical STRIPS) Branch strip lancets 2019-03 Yes [id number] Check [facility]ive rs (FREESTYLE 0-07 blood ity of LANCETS) 28 00:00: glucose 4x [place] gauge Misc 00 daily Medical Branch Blood-Gluco 2019- Yes [id number] Check [facility] n[facility] se Meter 0-07 blood ity of (FREESTYLE 00:00: glucose 4x [place] LITE METER) 00 daily Medical Kit [facility] blood sugar 2019-03 Yes [id number] Check [facility] n[facility] diagnostic 0-07 blood ity of (FREESTYLE 00:00: glucose 4x [place] LITE 00 daily Medical STRIPS) Branch strip lancets 2019-03 Yes [id number] Check Unive rs (FREESTYLE 0-07 blood ity of LANCETS) 28 00:00: glucose 4x [place] gauge Misc 00 daily Medical Branch Blood-Gluco 2019-03 Yes [id number] Check [facility] n[facility] se Meter 0-07 blood ity of (FREESTYLE 00:00: glucose 4x [place] LITE METER) 00 daily Medical Kit [facility] blood sugar 2019-03 Yes [id number] Check [facility] diagnostic 0-07 blood ity of (FREESTYLE 00:00: glucose 4x [place] LITE 00 daily Medical STRIPS) Branch strip lancets 2019-03 2020- No [id number] Check Univ ers (FREESTYLE 0-07 12-07 blood ity of LANCETS) 28 00:00: 00:00 glucose 4x [place] gauge Misc 00 :00 daily Medical Branch Blood-Gluco 2019-03 2020- No [id number] Check [facility] se Meter 0-07 12-07 blood ity of (FREESTYLE 00:00: 00:00 glucose 4x [place] LITE METER) 00 :00 daily Medical Kit Branch blood sugar 2019-03 2020- No [id number] Check [facility] diagnostic 0-07 12-07 blood ity of (FREESTYLE 00:00: 00:00 glucose 4x [place] LITE 00 :00 daily Medical STRIPS) Branch strip Blood-Gluco 2019-03 Yes [id number] Check [facility] nivers se Meter 0-02 blood ity of (FREESTYLE 00:00: glucose 4x [place] LITE METER) 00 daily Medical Kit [facility] blood sugar 2019-03 Yes [id number] Check [facility] n[facility] diagnostic 0-02 blood ity of (FREESTYLE 00:00: glucose 4x [place] LITE 00 daily Medical STRIPS) Branch strip lancets 2019-03 Yes [id number] Check Unive rs (FREESTYLE 0-02 blood ity of LANCETS) 28 00:00: glucose 4x [place] gauge Misc 00 daily Medical Branch Blood-Gluco 2019-03 Yes [id number] Check [facility] nivers se Meter 0-02 blood ity of (FREESTYLE 00:00: glucose 4x [place] LITE METER) 00 daily Medical Kit [facility] blood sugar 2019-03 Yes [id number] Check [facility] nivers diagnostic 0-02 blood ity of (FREESTYLE 00:00: glucose 4x [place] LITE 00 daily Medical STRIPS) Branch strip lancets 2019-03 Yes [id number] Check Unive rs (FREESTYLE 0-02 blood ity of LANCETS) 28 00:00: glucose 4x [place] gauge Misc 00 daily Medical Branch Blood-Gluco 2019-03 2020- No [id number] Check [facility] se Meter 0-02 10-07 blood ity of (FREESTYLE 00:00: 00:00 glucose 4x [place] LITE METER) 00 :00 daily Medical Kit Branch blood sugar 2019-03 2020- No [id number] Check [facility] diagnostic 0-02 10-07 blood ity of (FREESTYLE 00:00: 00:00 glucose 4x [place] LITE 00 :00 daily Medical STRIPS) Branch strip lancets 2019-03 2020- No [id number] Check Univ ers (FREESTYLE 0-02 10-07 blood ity of LANCETS) 28 00:00: 00:00 glucose 4x [place] gauge Misc 00 :00 daily Medical Branch Blood-Gluco 2019-03 2020- No [id number] Check [facility] se Meter 0-02 10-07 blood ity of (FREESTYLE 00:00: 00:00 glucose 4x [place] LITE METER) 00 :00 daily Medical Kit Branch blood sugar 2019-03 2020- No [id number] Check [facility] diagnostic 0-02 10-07 blood ity of (FREESTYLE 00:00: 00:00 glucose 4x [place] LITE 00 :00 daily Medical STRIPS) Branch strip lancets 2019-03 2020- No [id number] Check Univ ers (FREESTYLE 0-02 10-07 blood ity of LANCETS) 28 00:00: 00:00 glucose 4x [place] gauge Misc 00 :00 daily Medical Branch 2020-0 Yes [id number] 1{tbl} Take 1 [facility] multivitami 8-03 09 tablet by ity of n ( 00:00: mouth [place] VITAMIN) 00 daily. Medical tablet Branch 2019-0 Yes [id number] 1{tbl} Take 1 [facility] multivitami 8-03 09 tablet by ity of n ( 00:00: mouth [place] VITAMIN) 00 daily. Medical tablet Branch 0 Yes [id number] 1{tbl} Take 1 [facility] multivitami 8-03 09 tablet by ity of n ( 00:00: mouth [place] VITAMIN) 00 daily. Medical tablet Branch Yes [id number] 1{tbl} Take 1 [facility] multivitami 8-03 09 tablet by ity of n ( 00:00: mouth [place] VITAMIN) 00 daily. Medical tablet Branch Yes [id number] 1{tbl} Take 1 [facility] multivitami 8-03 09 tablet by ity of n ( 00:00: mouth [place] VITAMIN) 00 daily. Medical tablet Branch Yes [id number] 1{tbl} Take 1 [facility] multivitami 8-03 09 tablet by ity of n ( 00:00: mouth [place] VITAMIN) 00 daily. Medical tablet Branch Yes [id number] 1{tbl} Take 1 [facility] multivitami 8-03 09 tablet by ity of n ( 00:00: mouth [place] VITAMIN) 00 daily. Medical tablet Branch Yes [id number] 1{tbl} Take 1 [facility] multivitami 8-03 09 tablet by ity of n ( 00:00: mouth [place] VITAMIN) 00 daily. Medical tablet Branch Yes [id number] 1{tbl} Take 1 [facility] multivitami 8-03 09 tablet by ity of n ( 00:00: mouth [place] VITAMIN) 00 daily. Medical tablet Branch Yes [id number] 1{tbl} Take 1 [facility] multivitami 8-03 09 tablet by ity of n ( 00:00: mouth [place] VITAMIN) 00 daily. Medical tablet Branch Yes [id number] 1{tbl} Take 1 [facility] multivitami 8-03 09 tablet by ity of n ( 00:00: mouth [place] VITAMIN) 00 daily. Medical tablet Branch Yes [id number] 1{tbl} Take 1 [facility] multivitami 8-03 09 tablet by ity of n ( 00:00: mouth [place] VITAMIN) 00 daily. Medical tablet Branch Yes [id number] 1{tbl} Take 1 [facility] multivitami 8-03 09 tablet by ity of n ( 00:00: mouth [place] VITAMIN) 00 daily. Medical tablet Branch Yes [id number] 1{tbl} Take 1 [facility] multivitami 8-03 09 tablet by ity of n ( 00:00: mouth [place] VITAMIN) 00 daily. Medical tablet Branch 2020-0 Yes [id number] 1{tbl} Take 1 [facility] multivitami 8-03 09 tablet by ity of n ( 00:00: mouth [place] VITAMIN) 00 daily. Medical tablet Branch 2019-0 Yes [id number] 1{tbl} Take 1 [facility] multivitami 8-03 09 tablet by ity of n ( 00:00: mouth [place] VITAMIN) 00 daily. Medical tablet Branch Yes [id number] 1{tbl} Take 1 [facility] multivitami 8-03 09 tablet by ity of n ( 00:00: mouth [place] VITAMIN) 00 daily. Medical tablet Branch Yes [id number] 1{tbl} Take 1 [facility] multivitami 8-03 09 tablet by ity of n ( 00:00: mouth [place] VITAMIN) 00 daily. Medical tablet Branch Yes [id number] 1{tbl} Take 1 [facility] multivitami 8-03 09 tablet by ity of n ( 00:00: mouth [place] VITAMIN) 00 daily. Medical tablet Branch Yes [id number] 1{tbl} Take 1 [facility] multivitami 8-03 09 tablet by ity of n ( 00:00: mouth [place] VITAMIN) 00 daily. Medical tablet Branch Yes [id number] 1{tbl} Take 1 [facility] multivitami 8-03 09 tablet by ity of n ( 00:00: mouth [place] VITAMIN) 00 daily. Medical tablet Branch 2019-0 Yes [id number] 1{tbl} Take 1 [facility] multivitami 8-03 09 tablet by ity of n ( 00:00: mouth [place] VITAMIN) 00 daily. Medical tablet Branch 2019-0 Yes [id number] 1{tbl} Take 1 [facility] multivitami 8-03 09 tablet by ity of n ( 00:00: mouth [place] VITAMIN) 00 daily. Medical tablet Branch 2019-0 Yes [id number] 1{tbl} Take 1 [facility] multivitami 8-03 09 tablet by ity of n ( 00:00: mouth [place] VITAMIN) 00 daily. Medical tablet Branch 2019- Yes [id number] 1{tbl} Take 1 [facility] multivitami 8-03 09 tablet by ity of n ( 00:00: mouth [place] VITAMIN) 00 daily. Medical tablet Branch 2019-0 Yes [id number] 1{tbl} Take 1 [facility] multivitami 8-03 09 tablet by ity of n ( 00:00: mouth [place] VITAMIN) 00 daily. Medical tablet Branch 2019-0 Yes [id number] 1{tbl} Take 1 [facility] multivitami 8-03 09 tablet by ity of n ( 00:00: mouth [place] VITAMIN) 00 daily. Medical tablet Branch Yes [id number] 1{tbl} Take 1 [facility] multivitami 8-03 09 tablet by ity of n ( 00:00: mouth [place] VITAMIN) 00 daily. Medical tablet Branch 2019- Yes [id number] 1{tbl} Take 1 [facility] multivitami 8-03 09 tablet by ity of n ( 00:00: mouth [place] VITAMIN) 00 daily. Medical tablet Branch 2019- Yes [id number] 1{tbl} Take 1 [facility] multivitami 8-03 09 tablet by ity of n ( 00:00: mouth [place] VITAMIN) 00 daily. Medical tablet Branch Yes [id number] 1{tbl} Take 1 [facility] multivitami 8-03 09 tablet by ity of n ( 00:00: mouth [place] VITAMIN) 00 daily. Medical tablet Branch 2019-0 Yes [id number] 1{tbl} Take 1 [facility] multivitami 8-03 09 tablet by ity of n ( 00:00: mouth [place] VITAMIN) 00 daily. Medical tablet Branch 2019-0 Yes [id number] 1{tbl} Take 1 [facility] multivitami 8-03 09 tablet by ity of n ( 00:00: mouth [place] VITAMIN) 00 daily. Medical tablet Branch 2019-0 Yes [id number] 1{tbl} Take 1 [facility] multivitami 8-03 09 tablet by ity of n ( 00:00: mouth [place] VITAMIN) 00 daily. Medical tablet Branch 2019-0 Yes [id number] 1{tbl} Take 1 [facility] multivitami 8-03 09 tablet by ity of n ( 00:00: mouth [place] VITAMIN) 00 daily. Medical tablet Branch 2019- Yes [id number] 1{tbl} Take 1 [facility] multivitami 8-03 09 tablet by ity of n ( 00:00: mouth [place] VITAMIN) 00 daily. Medical tablet Branch Yes [id number] 1{tbl} Take 1 [facility] multivitami 8-03 09 tablet by ity of n ( 00:00: mouth [place] VITAMIN) 00 daily. Medical tablet Branch Yes [id number] 1{tbl} Take 1 [facility] multivitami 8-03 09 tablet by ity of n ( 00:00: mouth [place] VITAMIN) 00 daily. Medical tablet Branch Yes [id number] 1{tbl} Take 1 [facility] multivitami 8-03 09 tablet by ity of n ( 00:00: mouth [place] VITAMIN) 00 daily. Medical tablet Branch Yes [id number] 1{tbl} Take 1 [facility] multivitami 8-03 09 tablet by ity of n ( 00:00: mouth [place] VITAMIN) 00 daily. Medical tablet Branch Yes [id number] 1{tbl} Take 1 [facility] multivitami 8-03 09 tablet by ity of n ( 00:00: mouth [place] VITAMIN) 00 daily. Medical tablet Branch Yes [id number] 1{tbl} Take 1 [facility] multivitami 8-03 09 tablet by ity of n ( 00:00: mouth [place] VITAMIN) 00 daily. Medical tablet Branch 2020- No [id number] 1{tbl} Take 1 [facility] multivitami 8-03 12-07 09 tablet by it y of n ( 00:00: 00:00 [place] VITAMIN) 00 :00 daily. Medical tablet Branch HYDROcodone Yes [id number] 1{tbl} Take 1 [facility] -acetaminop 8-04 tablet by ity of hen 5-325 00:00: mouth [place] mg tablet 00 every 6 Medical (six) Branch hours as needed for Pain (scale 7-10). HYDROcodone Yes [id number] 1{tbl} Take 1 [facility] -acetaminop 8-04 tablet by ity of hen 5-325 00:00: mouth [place] mg tablet 00 every 6 Medical (six) Branch hours as needed for Pain (scale 7-10). HYDROcodone Yes [id number] 1{tbl} Take 1 Univers -acetaminop 8-04 tablet by ity of hen 5-325 00:00: mouth [place] mg tablet 00 every 6 Medical (six) Branch hours as needed for Pain (scale 7-10). HYDROcodone Yes [id number] 1{tbl} Take 1 [facility] -acetaminop 8-04 tablet by ity of hen 5-325 00:00: mouth [place] mg tablet 00 every 6 Medical (six) Branch hours as needed for Pain (scale 7-10). HYDROcodone Yes [id number] 1{tbl} Take 1 [facility] -acetaminop 8-04 tablet by ity of hen 5-325 00:00: mouth [place] mg tablet 00 every 6 Medical (six) Branch hours as needed for Pain (scale 7-10). HYDROcodone Yes [id number] 1{tbl} Take 1 [facility] -acetaminop 8-04 tablet by ity of hen 5-325 00:00: mouth [place] mg tablet 00 every 6 Medical (six) Branch hours as needed for Pain (scale 7-10). HYDROcodone Yes [id number] 1{tbl} Take 1 [facility] -acetaminop 8-04 tablet by ity of hen 5-325 00:00: mouth [place] mg tablet 00 every 6 Medical (six) Branch hours as needed for Pain (scale 7-10). HYDROcodone Yes [id number] 1{tbl} Take 1 Univers -acetaminop 8-04 tablet by ity of hen 5-325 00:00: mouth [place] mg tablet 00 every 6 Medical (six) Branch hours as needed for Pain (scale 7-10). HYDROcodone Yes [id number] 1{tbl} Take 1 [facility] -acetaminop 8-04 tablet by ity of hen 5-325 00:00: mouth [place] mg tablet 00 every 6 Medical (six) Branch hours as needed for Pain (scale 7-10). HYDROcodone Yes [id number] 1{tbl} Take 1 Univers -acetaminop 8-04 tablet by ity of hen 5-325 00:00: mouth [place] mg tablet 00 every 6 Medical (six) Branch hours as needed for Pain (scale 7-10). HYDROcodone Yes [id number] 1{tbl} Take 1 Univers -acetaminop 8-04 tablet by ity of hen 5-325 00:00: mouth [place] mg tablet 00 every 6 Medical (six) Branch hours as needed for Pain (scale 7-10). HYDROcodone Yes [id number] 1{tbl} Take 1 [facility] -acetaminop 8-04 tablet by ity of hen 5-325 00:00: mouth [place] mg tablet 00 every 6 Medical (six) Branch hours as needed for Pain (scale 7-10). HYDROcodone Yes [id number] 1{tbl} Take 1 [facility] -acetaminop 8-04 tablet by ity of hen 5-325 00:00: mouth [place] mg tablet 00 every 6 Medical (six) Branch hours as needed for Pain (scale 7-10). HYDROcodone Yes [id number] 1{tbl} Take 1 [facility] -acetaminop 8-04 tablet by ity of hen 5-325 00:00: mouth [place] mg tablet 00 every 6 Medical (six) Branch hours as needed for Pain (scale 7-10). HYDROcodone Yes [id number] 1{tbl} Take 1 [facility] -acetaminop 8-04 tablet by ity of hen 5-325 00:00: mouth [place] mg tablet 00 every 6 Medical (six) Branch hours as needed for Pain (scale 7-10). HYDROcodone Yes [id number] 1{tbl} Take 1 [facility] -acetaminop 8-04 tablet by ity of hen 5-325 00:00: mouth [place] mg tablet 00 every 6 Medical (six) Branch hours as needed for Pain (scale 7-10). HYDROcodone Yes [id number] 1{tbl} Take 1 Univers -acetaminop 8-04 tablet by ity of hen 5-325 00:00: mouth [place] mg tablet 00 every 6 Medical (six) Branch hours as needed for Pain (scale 7-10). HYDROcodone Yes [id number] 1{tbl} Take 1 [facility] -acetaminop 8-04 tablet by ity of hen 5-325 00:00: mouth [place] mg tablet 00 every 6 Medical (six) Branch hours as needed for Pain (scale 7-10). HYDROcodone Yes [id number] 1{tbl} Take 1 [facility] -acetaminop 8-04 tablet by ity of hen 5-325 00:00: mouth [place] mg tablet 00 every 6 Medical (six) Branch hours as needed for Pain (scale 7-10). HYDROcodone Yes [id number] 1{tbl} Take 1 [facility] -acetaminop 8-04 tablet by ity of hen 5-325 00:00: mouth [place] mg tablet 00 every 6 Medical (six) Branch hours as needed for Pain (scale 7-10). HYDROcodone Yes [id number] 1{tbl} Take 1 [facility] -acetaminop 8-04 tablet by ity of hen 5-325 00:00: mouth [place] mg tablet 00 every 6 Medical (six) Branch hours as needed for Pain (scale 7-10). HYDROcodone Yes [id number] 1{tbl} Take 1 [facility] -acetaminop 8-04 tablet by ity of hen 5-325 00:00: mouth [place] mg tablet 00 every 6 Medical (six) Branch hours as needed for Pain (scale 7-10). HYDROcodone Yes [id number] 1{tbl} Take 1 [facility] -acetaminop 8-04 tablet by ity of hen 5-325 00:00: mouth [place] mg tablet 00 every 6 Medical (six) Branch hours as needed for Pain (scale 7-10). HYDROcodone Yes [id number] 1{tbl} Take 1 [facility] -acetaminop 8-04 tablet by ity of hen 5-325 00:00: mouth [place] mg tablet 00 every 6 Medical (six) Branch hours as needed for Pain (scale 7-10). HYDROcodone Yes [id number] 1{tbl} Take 1 [facility] -acetaminop 8-04 tablet by ity of hen 5-325 00:00: mouth [place] mg tablet 00 every 6 Medical (six) Branch hours as needed for Pain (scale 7-10). HYDROcodone Yes [id number] 1{tbl} Take 1 [facility] -acetaminop 8-04 tablet by ity of hen 5-325 00:00: mouth [place] mg tablet 00 every 6 Medical (six) Branch hours as needed for Pain (scale 7-10). HYDROcodone 2020- No [id number] 1{tbl} Take 1 [facility] -acetaminop 8-04 10-26 tablet by it y of hen 5-325 00:00: 00:00 mouth [place] mg tablet 00 :00 every 6 Medical (six) Branch hours as needed for Pain (scale 7-10). HYDROcodone 2020- No [id number] 1{tbl} Take 1 [facility] -acetaminop 8-04 10-26 tablet by it y of hen 5-325 00:00: 00:00 mouth [place] mg tablet 00 :00 every 6 Medical (six) Branch hours as needed for Pain (scale 7-10). docusate Yes [id number] 240mg Take 1 [facility] nivers calcium 240 8-03 capsule by it y of mg capsule 00:00: mouth [place] 00 daily as Medical needed for Branch Constipati on. May substitute for what is in stock and covered by patient plan ferrous Yes [id number] 325mg Take 1 Un pamela sulfate 325 8-03 tablet by ity of mg (65 mg 00:00: mouth 2 [place] iron) 00 (two) Medical tablet times Branch daily. May substitute for what is in stock and covered by patient plan ibuprofen Yes [id number] 600mg Take 1 [facility] 600 mg 8-03 tablet by ity of tablet 00:00: mouth [place] 00 every 6 Medical (six) Branch hours as needed for Pain (scale 1-3) or Pain (scale 4-6) (Pain). Take with food or milk. Yes [id number] 1{tbl} Take 1 [facility] vitamin 8-03 tablet by ity of w/FA tablet 00:00: mouth [place] 00 daily. May Medical substitute Branch for what is in stock and covered by patient plan docusate Yes [id number] 240mg Take 1 [facility] nivers calcium 240 8-03 capsule by it y of mg capsule 00:00: mouth [place] 00 daily as Medical needed for Branch Constipati on. May substitute for what is in stock and covered by patient plan ferrous Yes [id number] 325mg Take 1 Un pamela sulfate 325 8-03 tablet by ity of mg (65 mg 00:00: mouth 2 [place] iron) 00 (two) Medical tablet times Branch daily. May substitute for what is in stock and covered by patient plan ibuprofen Yes [id number] 600mg Take 1 [facility] 600 mg 8-03 tablet by ity of tablet 00:00: mouth [place] 00 every 6 Medical (six) Branch hours as needed for Pain (scale 1-3) or Pain (scale 4-6) (Pain). Take with food or milk. 2019-0 Yes [id number] 1{tbl} Take 1 [facility] vitamin 8-03 tablet by ity of w/FA tablet 00:00: mouth [place] 00 daily. May Medical substitute Branch for what is in stock and covered by patient plan 2019-0 Yes [id number] 1{tbl} Take 1 [facility] vitamin 8-03 tablet by ity of w/FA tablet 00:00: mouth [place] 00 daily. May Medical substitute Branch for what is in stock and covered by patient plan 2019-0 Yes [id number] 1{tbl} Take 1 [facility] vitamin 8-03 tablet by ity of w/FA tablet 00:00: mouth [place] 00 daily. May Medical substitute Branch for what is in stock and covered by patient plan 2019-0 Yes [id number] 1{tbl} Take 1 [facility] vitamin 8-03 tablet by ity of w/FA tablet 00:00: mouth [place] 00 daily. May Medical substitute Branch for what is in stock and covered by patient plan 2019-0 Yes [id number] 1{tbl} Take 1 [facility] vitamin 8-03 tablet by ity of w/FA tablet 00:00: mouth [place] 00 daily. May Medical substitute Branch for what is in stock and covered by patient plan 2019-0 Yes [id number] 1{tbl} Take 1 [facility] vitamin 8-03 tablet by ity of w/FA tablet 00:00: mouth [place] 00 daily. May Medical substitute Branch for what is in stock and covered by patient plan 2019-0 Yes [id number] 1{tbl} Take 1 [facility] vitamin 8-03 tablet by ity of w/FA tablet 00:00: mouth [place] 00 daily. May Medical substitute Branch for what is in stock and covered by patient plan 2019-0 Yes [id number] 1{tbl} Take 1 [facility] vitamin 8-03 tablet by ity of w/FA tablet 00:00: mouth [place] 00 daily. May Medical substitute Branch for what is in stock and covered by patient plan 2019-0 Yes [id number] 1{tbl} Take 1 [facility] vitamin 8-03 tablet by ity of w/FA tablet 00:00: mouth [place] 00 daily. May Medical substitute Branch for what is in stock and covered by patient plan 2019-0 Yes [id number] 1{tbl} Take 1 [facility] vitamin 8-03 tablet by ity of w/FA tablet 00:00: mouth [place] 00 daily. May Medical substitute Branch for what is in stock and covered by patient plan 2019-0 Yes [id number] 1{tbl} Take 1 [facility] vitamin 8-03 tablet by ity of w/FA tablet 00:00: mouth [place] 00 daily. May Medical substitute Branch for what is in stock and covered by patient plan 2019-0 Yes [id number] 1{tbl} Take 1 [facility] vitamin 8-03 tablet by ity of w/FA tablet 00:00: mouth [place] 00 daily. May Medical substitute Branch for what is in stock and covered by patient plan 2019-0 Yes [id number] 1{tbl} Take 1 [facility] vitamin 8-03 tablet by ity of w/FA tablet 00:00: mouth [place] 00 daily. May Medical substitute Branch for what is in stock and covered by patient plan 2019-0 Yes [id number] 1{tbl} Take 1 [facility] vitamin 8-03 tablet by ity of w/FA tablet 00:00: mouth [place] 00 daily. May Medical substitute Branch for what is in stock and covered by patient plan 2019-0 Yes [id number] 1{tbl} Take 1 [facility] vitamin 8-03 tablet by ity of w/FA tablet 00:00: mouth [place] 00 daily. May Medical substitute Branch for what is in stock and covered by patient plan 2019-0 Yes [id number] 1{tbl} Take 1 [facility] vitamin 8-03 tablet by ity of w/FA tablet 00:00: mouth [place] 00 daily. May Medical substitute Branch for what is in stock and covered by patient plan 2019-0 Yes [id number] 1{tbl} Take 1 [facility] vitamin 8-03 tablet by ity of w/FA tablet 00:00: mouth [place] 00 daily. May Medical substitute Branch for what is in stock and covered by patient plan 2019-0 Yes [id number] 1{tbl} Take 1 [facility] vitamin 8-03 tablet by ity of w/FA tablet 00:00: mouth [place] 00 daily. May Medical substitute Branch for what is in stock and covered by patient plan 2019-0 Yes [id number] 1{tbl} Take 1 [facility] vitamin 8-03 tablet by ity of w/FA tablet 00:00: mouth [place] 00 daily. May Medical substitute Branch for what is in stock and covered by patient plan 2019-0 Yes [id number] 1{tbl} Take 1 [facility] vitamin 8-03 tablet by ity of w/FA tablet 00:00: mouth [place] 00 daily. May Medical substitute Branch for what is in stock and covered by patient plan 2019- Yes [id number] 1{tbl} Take 1 [facility] vitamin 8-03 tablet by ity of w/FA tablet 00:00: mouth [place] 00 daily. May Medical substitute Branch for what is in stock and covered by patient plan Yes [id number] 1{tbl} Take 1 [facility] vitamin 8-03 tablet by ity of w/FA tablet 00:00: mouth [place] 00 daily. May Medical substitute Branch for what is in stock and covered by patient plan 2019 Yes [id number] 1{tbl} Take 1 [facility] vitamin 8-03 tablet by ity of w/FA tablet 00:00: mouth [place] 00 daily. May Medical substitute Branch for what is in stock and covered by patient plan Yes [id number] 1{tbl} Take 1 [facility] vitamin 8-03 tablet by ity of w/FA tablet 00:00: mouth [place] 00 daily. May Medical substitute Branch for what is in stock and covered by patient plan 2019 Yes [id number] 1{tbl} Take 1 [facility] vitamin 8-03 tablet by ity of w/FA tablet 00:00: mouth [place] 00 daily. May Medical substitute Branch for what is in stock and covered by patient plan 2019-0 Yes [id number] 1{tbl} Take 1 [facility] vitamin 8-03 tablet by ity of w/FA tablet 00:00: mouth [place] 00 daily. May Medical substitute Branch for what is in stock and covered by patient plan docusate 2019-0 Yes [id number] 240mg Take 1 [facility] nivers calcium 240 8-03 capsule by it y of mg capsule 00:00: mouth once [place] 00 daily as Medical needed for Branch Constipati on. May substitute for what is in stock and covered by patient plan ferrous 2019-0 Yes [id number] 325mg Take 1 Un pamela sulfate 325 8-03 tablet by ity of mg (65 mg 00:00: mouth 2 [place] iron) 00 (two) Medical tablet times Branch daily. May substitute for what is in stock and covered by patient plan ibuprofen Yes [id number] 600mg Take 1 [facility] 600 mg 8-03 tablet by ity of tablet 00:00: mouth [place] 00 every 6 Medical (six) Branch hours as needed for Pain (scale 1-3) or Pain (scale 4-6) (Pain). Take with food or milk. Yes [id number] 1{tbl} Take 1 [facility] vitamin 8-03 tablet by ity of w/FA tablet 00:00: mouth [place] 00 daily. May Medical substitute Branch for what is in stock and covered by patient plan docusate Yes [id number] 240mg Take 1 [facility] nivers calcium 240 8-03 capsule by it y of mg capsule 00:00: mouth once [place] 00 daily as Medical needed for Branch Constipati on. May substitute for what is in stock and covered by patient plan ferrous Yes [id number] 325mg Take 1 Un pamela sulfate 325 8-03 tablet by ity of mg (65 mg 00:00: mouth 2 [place] iron) 00 (two) Medical tablet times Branch daily. May substitute for what is in stock and covered by patient plan ibuprofen Yes [id number] 600mg Take 1 [facility] 600 mg 8-03 tablet by ity of tablet 00:00: mouth [place] 00 every 6 Medical (six) Branch hours as needed for Pain (scale 1-3) or Pain (scale 4-6) (Pain). Take with food or milk. Yes [id number] 1{tbl} Take 1 [facility] vitamin 8-03 tablet by ity of w/FA tablet 00:00: mouth [place] 00 daily. May Medical substitute Branch for what is in stock and covered by patient plan docusate Yes [id number] 240mg Take 1 [facility] nivers calcium 240 8-03 capsule by it y of mg capsule 00:00: mouth once [place] 00 daily as Medical needed for Branch Constipati on. May substitute for what is in stock and covered by patient plan ferrous Yes [id number] 325mg Take 1 Un pamela sulfate 325 8-03 tablet by ity of mg (65 mg 00:00: mouth 2 [place] iron) 00 (two) Medical tablet times Branch daily. May substitute for what is in stock and covered by patient plan ibuprofen Yes [id number] 600mg Take 1 [facility] 600 mg 8-03 tablet by ity of tablet 00:00: mouth [place] 00 every 6 Medical (six) Branch hours as needed for Pain (scale 1-3) or Pain (scale 4-6) (Pain). Take with food or milk. Yes [id number] 1{tbl} Take 1 [facility] vitamin 8-03 tablet by ity of w/FA tablet 00:00: mouth [place] 00 daily. May Medical substitute Branch for what is in stock and covered by patient plan docusate Yes [id number] 240mg Take 1 [facility] nivers calcium 240 8-03 capsule by it y of mg capsule 00:00: mouth once [place] 00 daily as Medical needed for Branch Constipati on. May substitute for what is in stock and covered by patient plan ferrous Yes [id number] 325mg Take 1 Un pamela sulfate 325 8-03 tablet by ity of mg (65 mg 00:00: mouth 2 [place] iron) 00 (two) Medical tablet times Branch daily. May substitute for what is in stock and covered by patient plan ibuprofen Yes [id number] 600mg Take 1 [facility] 600 mg 8-03 tablet by ity of tablet 00:00: mouth [place] 00 every 6 Medical (six) Branch hours as needed for Pain (scale 1-3) or Pain (scale 4-6) (Pain). Take with food or milk. Yes [id number] 1{tbl} Take 1 [facility] vitamin 8-03 tablet by ity of w/FA tablet 00:00: mouth [place] 00 daily. May Medical substitute Branch for what is in stock and covered by patient plan docusate Yes [id number] 240mg Take 1 [facility] nivers calcium 240 8-03 capsule by it y of mg capsule 00:00: mouth once [place] 00 daily as Medical needed for Branch Constipati on. May substitute for what is in stock and covered by patient plan ferrous Yes [id number] 325mg Take 1 Un pamela sulfate 325 8-03 tablet by ity of mg (65 mg 00:00: mouth 2 [place] iron) 00 (two) Medical tablet times Branch daily. May substitute for what is in stock and covered by patient plan ibuprofen Yes [id number] 600mg Take 1 [facility] 600 mg 8-03 tablet by ity of tablet 00:00: mouth [place] 00 every 6 Medical (six) Branch hours as needed for Pain (scale 1-3) or Pain (scale 4-6) (Pain). Take with food or milk. Yes [id number] 1{tbl} Take 1 [facility] vitamin 8-03 tablet by ity of w/FA tablet 00:00: mouth [place] 00 daily. May Medical substitute Branch for what is in stock and covered by patient plan docusate Yes [id number] 240mg Take 1 [facility] nivers calcium 240 8-03 capsule by it y of mg capsule 00:00: mouth once [place] 00 daily as Medical needed for Branch Constipati on. May substitute for what is in stock and covered by patient plan ferrous Yes [id number] 325mg Take 1 Un pamela sulfate 325 8-03 tablet by ity of mg (65 mg 00:00: mouth 2 [place] iron) 00 (two) Medical tablet times Branch daily. May substitute for what is in stock and covered by patient plan ibuprofen Yes [id number] 600mg Take 1 [facility] 600 mg 8-03 tablet by ity of tablet 00:00: mouth [place] 00 every 6 Medical (six) Branch hours as needed for Pain (scale 1-3) or Pain (scale 4-6) (Pain). Take with food or milk. Yes [id number] 1{tbl} Take 1 [facility] vitamin 8-03 tablet by ity of w/FA tablet 00:00: mouth [place] 00 daily. May Medical substitute Branch for what is in stock and covered by patient plan docusate Yes [id number] 240mg Take 1 [facility] nivers calcium 240 8-03 capsule by it y of mg capsule 00:00: mouth once [place] 00 daily as Medical needed for Branch Constipati on. May substitute for what is in stock and covered by patient plan ferrous Yes [id number] 325mg Take 1 Un pamela sulfate 325 8-03 tablet by ity of mg (65 mg 00:00: mouth 2 [place] iron) 00 (two) Medical tablet times Branch daily. May substitute for what is in stock and covered by patient plan ibuprofen Yes [id number] 600mg Take 1 [facility] 600 mg 8-03 tablet by ity of tablet 00:00: mouth [place] 00 every 6 Medical (six) Branch hours as needed for Pain (scale 1-3) or Pain (scale 4-6) (Pain). Take with food or milk. Yes [id number] 1{tbl} Take 1 [facility] vitamin 8-03 tablet by ity of w/FA tablet 00:00: mouth [place] 00 daily. May Medical substitute Branch for what is in stock and covered by patient plan docusate Yes [id number] 240mg Take 1 [facility] nivers calcium 240 8-03 capsule by it y of mg capsule 00:00: mouth once [place] 00 daily as Medical needed for Branch Constipati on. May substitute for what is in stock and covered by patient plan ferrous Yes [id number] 325mg Take 1 Un pamela sulfate 325 8-03 tablet by ity of mg (65 mg 00:00: mouth 2 [place] iron) 00 (two) Medical tablet times Branch daily. May substitute for what is in stock and covered by patient plan ibuprofen Yes [id number] 600mg Take 1 [facility] 600 mg 8-03 tablet by ity of tablet 00:00: mouth [place] 00 every 6 Medical (six) Branch hours as needed for Pain (scale 1-3) or Pain (scale 4-6) (Pain). Take with food or milk. Yes [id number] 1{tbl} Take 1 [facility] vitamin 8-03 tablet by ity of w/FA tablet 00:00: mouth [place] 00 daily. May Medical substitute Branch for what is in stock and covered by patient plan docusate Yes [id number] 240mg Take 1 [facility] nivers calcium 240 8-03 capsule by it y of mg capsule 00:00: mouth once [place] 00 daily as Medical needed for Branch Constipati on. May substitute for what is in stock and covered by patient plan ferrous Yes [id number] 325mg Take 1 Un pamela sulfate 325 8-03 tablet by ity of mg (65 mg 00:00: mouth 2 [place] iron) 00 (two) Medical tablet times Branch daily. May substitute for what is in stock and covered by patient plan ibuprofen Yes [id number] 600mg Take 1 [facility] 600 mg 8-03 tablet by ity of tablet 00:00: mouth [place] 00 every 6 Medical (six) Branch hours as needed for Pain (scale 1-3) or Pain (scale 4-6) (Pain). Take with food or milk. Yes [id number] 1{tbl} Take 1 [facility] vitamin 8-03 tablet by ity of w/FA tablet 00:00: mouth [place] 00 daily. May Medical substitute Branch for what is in stock and covered by patient plan docusate Yes [id number] 240mg Take 1 [facility] nivers calcium 240 8-03 capsule by it y of mg capsule 00:00: mouth once [place] 00 daily as Medical needed for Branch Constipati on. May substitute for what is in stock and covered by patient plan ferrous Yes [id number] 325mg Take 1 Un pamela sulfate 325 8-03 tablet by ity of mg (65 mg 00:00: mouth 2 [place] iron) 00 (two) Medical tablet times Branch daily. May substitute for what is in stock and covered by patient plan ibuprofen Yes [id number] 600mg Take 1 [facility] 600 mg 8-03 tablet by ity of tablet 00:00: mouth [place] 00 every 6 Medical (six) Branch hours as needed for Pain (scale 1-3) or Pain (scale 4-6) (Pain). Take with food or milk. Yes [id number] 1{tbl} Take 1 [facility] vitamin 8-03 tablet by ity of w/FA tablet 00:00: mouth [place] 00 daily. May Medical substitute Branch for what is in stock and covered by patient plan docusate Yes [id number] 240mg Take 1 [facility] nivers calcium 240 8-03 capsule by it y of mg capsule 00:00: mouth once [place] 00 daily as Medical needed for Branch Constipati on. May substitute for what is in stock and covered by patient plan ferrous Yes [id number] 325mg Take 1 Un pamela sulfate 325 8-03 tablet by ity of mg (65 mg 00:00: mouth 2 [place] iron) 00 (two) Medical tablet times Branch daily. May substitute for what is in stock and covered by patient plan ibuprofen Yes [id number] 600mg Take 1 [facility] 600 mg 8-03 tablet by ity of tablet 00:00: mouth [place] 00 every 6 Medical (six) Branch hours as needed for Pain (scale 1-3) or Pain (scale 4-6) (Pain). Take with food or milk. 2019 Yes [id number] 1{tbl} Take 1 [facility] vitamin 8-03 tablet by ity of w/FA tablet 00:00: mouth [place] 00 daily. May Medical substitute Branch for what is in stock and covered by patient plan docusate Yes [id number] 240mg Take 1 [facility] nivers calcium 240 8-03 capsule by it y of mg capsule 00:00: mouth once [place] 00 daily as Medical needed for Branch Constipati on. May substitute for what is in stock and covered by patient plan ferrous Yes [id number] 325mg Take 1 Un pamela sulfate 325 8-03 tablet by ity of mg (65 mg 00:00: mouth 2 [place] iron) 00 (two) Medical tablet times Branch daily. May substitute for what is in stock and covered by patient plan ibuprofen Yes [id number] 600mg Take 1 [facility] 600 mg 8-03 tablet by ity of tablet 00:00: mouth [place] 00 every 6 Medical (six) Branch hours as needed for Pain (scale 1-3) or Pain (scale 4-6) (Pain). Take with food or milk. Yes [id number] 1{tbl} Take 1 [facility] vitamin 8-03 tablet by ity of w/FA tablet 00:00: mouth [place] 00 daily. May Medical substitute Branch for what is in stock and covered by patient plan docusate Yes [id number] 240mg Take 1 [facility] nivers calcium 240 8-03 capsule by it y of mg capsule 00:00: mouth once [place] 00 daily as Medical needed for Branch Constipati on. May substitute for what is in stock and covered by patient plan ferrous Yes [id number] 325mg Take 1 Un pamela sulfate 325 8-03 tablet by ity of mg (65 mg 00:00: mouth 2 [place] iron) 00 (two) Medical tablet times Branch daily. May substitute for what is in stock and covered by patient plan ibuprofen Yes [id number] 600mg Take 1 [facility] 600 mg 8-03 tablet by ity of tablet 00:00: mouth [place] 00 every 6 Medical (six) Branch hours as needed for Pain (scale 1-3) or Pain (scale 4-6) (Pain). Take with food or milk. 0 Yes [id number] 1{tbl} Take 1 [facility] vitamin 8-03 tablet by ity of w/FA tablet 00:00: mouth [place] 00 daily. May Medical substitute Branch for what is in stock and covered by patient plan docusate Yes [id number] 240mg Take 1 [facility] nivers calcium 240 8-03 capsule by it y of mg capsule 00:00: mouth once [place] 00 daily as Medical needed for Branch Constipati on. May substitute for what is in stock and covered by patient plan ferrous Yes [id number] 325mg Take 1 Un pamela sulfate 325 8-03 tablet by ity of mg (65 mg 00:00: mouth 2 [place] iron) 00 (two) Medical tablet times Branch daily. May substitute for what is in stock and covered by patient plan ibuprofen Yes [id number] 600mg Take 1 [facility] 600 mg 8-03 tablet by ity of tablet 00:00: mouth [place] 00 every 6 Medical (six) Branch hours as needed for Pain (scale 1-3) or Pain (scale 4-6) (Pain). Take with food or milk. Yes [id number] 1{tbl} Take 1 [facility] vitamin 8-03 tablet by ity of w/FA tablet 00:00: mouth [place] 00 daily. May Medical substitute Branch for what is in stock and covered by patient plan docusate Yes [id number] 240mg Take 1 [facility] nivers calcium 240 8-03 capsule by it y of mg capsule 00:00: mouth once [place] 00 daily as Medical needed for Branch Constipati on. May substitute for what is in stock and covered by patient plan ferrous Yes [id number] 325mg Take 1 Un pamela sulfate 325 8-03 tablet by ity of mg (65 mg 00:00: mouth 2 [place] iron) 00 (two) Medical tablet times Branch daily. May substitute for what is in stock and covered by patient plan ibuprofen Yes [id number] 600mg Take 1 [facility] 600 mg 8-03 tablet by ity of tablet 00:00: mouth [place] 00 every 6 Medical (six) Branch hours as needed for Pain (scale 1-3) or Pain (scale 4-6) (Pain). Take with food or milk. 2019-0 Yes [id number] 1{tbl} Take 1 [facility] vitamin 8-03 tablet by ity of w/FA tablet 00:00: mouth [place] 00 daily. May Medical substitute Branch for what is in stock and covered by patient plan docusate Yes [id number] 240mg Take 1 [facility] nivers calcium 240 8-03 capsule by it y of mg capsule 00:00: mouth once [place] 00 daily as Medical needed for Branch Constipati on. May substitute for what is in stock and covered by patient plan ferrous Yes [id number] 325mg Take 1 Un pamela sulfate 325 8-03 tablet by ity of mg (65 mg 00:00: mouth 2 [place] iron) 00 (two) Medical tablet times Branch daily. May substitute for what is in stock and covered by patient plan ibuprofen Yes [id number] 600mg Take 1 [facility] 600 mg 8-03 tablet by ity of tablet 00:00: mouth [place] 00 every 6 Medical (six) Branch hours as needed for Pain (scale 1-3) or Pain (scale 4-6) (Pain). Take with food or milk. 2018-0 Yes [id number] 1{tbl} Take 1 [facility] vitamin 8-03 tablet by ity of w/FA tablet 00:00: mouth [place] 00 daily. May Medical substitute Branch for what is in stock and covered by patient plan docusate Yes [id number] 240mg Take 1 [facility] nivers calcium 240 8-03 capsule by it y of mg capsule 00:00: mouth once [place] 00 daily as Medical needed for Branch Constipati on. May substitute for what is in stock and covered by patient plan ferrous Yes [id number] 325mg Take 1 Un pamela sulfate 325 8-03 tablet by ity of mg (65 mg 00:00: mouth 2 [place] iron) 00 (two) Medical tablet times Branch daily. May substitute for what is in stock and covered by patient plan ibuprofen Yes [id number] 600mg Take 1 [facility] 600 mg 8-03 tablet by ity of tablet 00:00: mouth [place] 00 every 6 Medical (six) Branch hours as needed for Pain (scale 1-3) or Pain (scale 4-6) (Pain). Take with food or milk. Yes [id number] 1{tbl} Take 1 [facility] vitamin 8-03 tablet by ity of w/FA tablet 00:00: mouth [place] 00 daily. May Medical substitute Branch for what is in stock and covered by patient plan docusate Yes [id number] 240mg Take 1 [facility] nivers calcium 240 8-03 capsule by it y of mg capsule 00:00: mouth once [place] 00 daily as Medical needed for Branch Constipati on. May substitute for what is in stock and covered by patient plan ferrous Yes [id number] 325mg Take 1 Un apmela sulfate 325 8-03 tablet by ity of mg (65 mg 00:00: mouth 2 [place] iron) 00 (two) Medical tablet times Branch daily. May substitute for what is in stock and covered by patient plan ibuprofen Yes [id number] 600mg Take 1 [facility] 600 mg 8-03 tablet by ity of tablet 00:00: mouth [place] 00 every 6 Medical (six) Branch hours as needed for Pain (scale 1-3) or Pain (scale 4-6) (Pain). Take with food or milk. Yes [id number] 1{tbl} Take 1 [facility] vitamin 8-03 tablet by ity of w/FA tablet 00:00: mouth [place] 00 daily. May Medical substitute Branch for what is in stock and covered by patient plan docusate Yes [id number] 240mg Take 1 [facility] nivers calcium 240 8-03 capsule by it y of mg capsule 00:00: mouth once [place] 00 daily as Medical needed for Branch Constipati on. May substitute for what is in stock and covered by patient plan ferrous Yes [id number] 325mg Take 1 Un pamela sulfate 325 8-03 tablet by ity of mg (65 mg 00:00: mouth 2 [place] iron) 00 (two) Medical tablet times Branch daily. May substitute for what is in stock and covered by patient plan ibuprofen Yes [id number] 600mg Take 1 [facility] 600 mg 8-03 tablet by ity of tablet 00:00: mouth [place] 00 every 6 Medical (six) Branch hours as needed for Pain (scale 1-3) or Pain (scale 4-6) (Pain). Take with food or milk. Yes [id number] 1{tbl} Take 1 [facility] vitamin 8-03 tablet by ity of w/FA tablet 00:00: mouth [place] 00 daily. May Medical substitute Branch for what is in stock and covered by patient plan docusate Yes [id number] 240mg Take 1 [facility] nivers calcium 240 8-03 capsule by it y of mg capsule 00:00: mouth once [place] 00 daily as Medical needed for Branch Constipati on. May substitute for what is in stock and covered by patient plan ferrous Yes [id number] 325mg Take 1 Un pamela sulfate 325 8-03 tablet by ity of mg (65 mg 00:00: mouth 2 [place] iron) 00 (two) Medical tablet times Branch daily. May substitute for what is in stock and covered by patient plan ibuprofen Yes [id number] 600mg Take 1 [facility] 600 mg 8-03 tablet by ity of tablet 00:00: mouth [place] 00 every 6 Medical (six) Branch hours as needed for Pain (scale 1-3) or Pain (scale 4-6) (Pain). Take with food or milk. Yes [id number] 1{tbl} Take 1 [facility] vitamin 8-03 tablet by ity of w/FA tablet 00:00: mouth [place] 00 daily. May Medical substitute Branch for what is in stock and covered by patient plan docusate Yes [id number] 240mg Take 1 [facility] nivers calcium 240 8-03 capsule by it y of mg capsule 00:00: mouth once [place] 00 daily as Medical needed for Branch Constipati on. May substitute for what is in stock and covered by patient plan ferrous Yes [id number] 325mg Take 1 Un pamela sulfate 325 8-03 tablet by ity of mg (65 mg 00:00: mouth 2 [place] iron) 00 (two) Medical tablet times Branch daily. May substitute for what is in stock and covered by patient plan ibuprofen Yes [id number] 600mg Take 1 [facility] 600 mg 8-03 tablet by ity of tablet 00:00: mouth [place] 00 every 6 Medical (six) Branch hours as needed for Pain (scale 1-3) or Pain (scale 4-6) (Pain). Take with food or milk. Yes [id number] 1{tbl} Take 1 [facility] vitamin 8-03 tablet by ity of w/FA tablet 00:00: mouth [place] 00 daily. May Medical substitute Branch for what is in stock and covered by patient plan docusate Yes [id number] 240mg Take 1 [facility] nivers calcium 240 8-03 capsule by it y of mg capsule 00:00: mouth once [place] 00 daily as Medical needed for Branch Constipati on. May substitute for what is in stock and covered by patient plan ferrous Yes [id number] 325mg Take 1 Un pamela sulfate 325 8-03 tablet by ity of mg (65 mg 00:00: mouth 2 [place] iron) 00 (two) Medical tablet times Branch daily. May substitute for what is in stock and covered by patient plan ibuprofen Yes [id number] 600mg Take 1 [facility] 600 mg 8-03 tablet by ity of tablet 00:00: mouth [place] 00 every 6 Medical (six) Branch hours as needed for Pain (scale 1-3) or Pain (scale 4-6) (Pain). Take with food or milk. Yes [id number] 1{tbl} Take 1 [facility] vitamin 8-03 tablet by ity of w/FA tablet 00:00: mouth [place] 00 daily. May Medical substitute Branch for what is in stock and covered by patient plan docusate Yes [id number] 240mg Take 1 [facility] nivers calcium 240 8-03 capsule by it y of mg capsule 00:00: mouth once [place] 00 daily as Medical needed for Branch Constipati on. May substitute for what is in stock and covered by patient plan ferrous Yes [id number] 325mg Take 1 Un pamela sulfate 325 8-03 tablet by ity of mg (65 mg 00:00: mouth 2 [place] iron) 00 (two) Medical tablet times Branch daily. May substitute for what is in stock and covered by patient plan ibuprofen Yes [id number] 600mg Take 1 [facility] 600 mg 8-03 tablet by ity of tablet 00:00: mouth [place] 00 every 6 Medical (six) Branch hours as needed for Pain (scale 1-3) or Pain (scale 4-6) (Pain). Take with food or milk. Yes [id number] 1{tbl} Take 1 [facility] vitamin 8-03 tablet by ity of w/FA tablet 00:00: mouth [place] 00 daily. May Medical substitute Branch for what is in stock and covered by patient plan docusate Yes [id number] 240mg Take 1 [facility] nivers calcium 240 8-03 capsule by it y of mg capsule 00:00: mouth once [place] 00 daily as Medical needed for Branch Constipati on. May substitute for what is in stock and covered by patient plan ferrous Yes [id number] 325mg Take 1 Un pamela sulfate 325 8-03 tablet by ity of mg (65 mg 00:00: mouth 2 [place] iron) 00 (two) Medical tablet times Branch daily. May substitute for what is in stock and covered by patient plan ibuprofen Yes [id number] 600mg Take 1 [facility] 600 mg 8-03 tablet by ity of tablet 00:00: mouth [place] 00 every 6 Medical (six) Branch hours as needed for Pain (scale 1-3) or Pain (scale 4-6) (Pain). Take with food or milk. Yes [id number] 1{tbl} Take 1 [facility] vitamin 8-03 tablet by ity of w/FA tablet 00:00: mouth [place] 00 daily. May Medical substitute Branch for what is in stock and covered by patient plan docusate Yes [id number] 240mg Take 1 [facility] nivers calcium 240 8-03 capsule by it y of mg capsule 00:00: mouth once [place] 00 daily as Medical needed for Branch Constipati on. May substitute for what is in stock and covered by patient plan ferrous Yes [id number] 325mg Take 1 Un pamela sulfate 325 8-03 tablet by ity of mg (65 mg 00:00: mouth 2 [place] iron) 00 (two) Medical tablet times Branch daily. May substitute for what is in stock and covered by patient plan ibuprofen Yes [id number] 600mg Take 1 [facility] 600 mg 8-03 tablet by ity of tablet 00:00: mouth [place] 00 every 6 Medical (six) Branch hours as needed for Pain (scale 1-3) or Pain (scale 4-6) (Pain). Take with food or milk. Yes [id number] 1{tbl} Take 1 [facility] vitamin 8-03 tablet by ity of w/FA tablet 00:00: mouth [place] 00 daily. May Medical substitute Branch for what is in stock and covered by patient plan 2019- No [id number] 1{tbl} Take 1 [facility] vitamin 8- 12-07 tablet by ity of w/FA tablet 00:00: 00:00 mouth [place] 00 :00 daily. May Medical substitute Branch for what is in stock and covered by patient plan docusate 2019- No [id number] 240mg Take 1 [facility] calcium 240 8-03 10-26 capsule by i ty of mg capsule 00:00: 00:00 mouth once [place] 00 :00 daily as Medical needed for Branch Constipati on. May substitute for what is in stock and covered by patient plan ferrous 2019- No [id number] 325mg Take 1 U nivers sulfate 325 8- 10-26 tablet by it y of mg (65 mg 00:00: 00:00 mouth 2 [place] iron) 00 :00 (two) Medical tablet times Branch daily. May substitute for what is in stock and covered by patient plan ibuprofen 2019- No [id number] 600mg Take 1 [facility] 600 mg 8-03 10-26 tablet by ity of tablet 00:00: 00:00 mouth [place] 00 :00 every 6 Medical (six) Branch hours as needed for Pain (scale 1-3) or Pain (scale 4-6) (Pain). Take with food or milk. docusate 2019- No [id number] 240mg Take 1 [facility] calcium 240 8-03 10-26 capsule by i ty of mg capsule 00:00: 00:00 mouth once [place] 00 :00 daily as Medical needed for Branch Constipati on. May substitute for what is in stock and covered by patient plan ferrous 2019- No [id number] 325mg Take 1 U nivers sulfate 325 8-03 10-26 tablet by it y of mg (65 mg 00:00: 00:00 mouth 2 [place] iron) 00 :00 (two) Medical tablet times Branch daily. May substitute for what is in stock and covered by patient plan ibuprofen 2019- No [id number] 600mg Take 1 [facility] 600 mg 8-03 10-26 tablet by ity of tablet 00:00: 00:00 mouth [place] 00 :00 every 6 Medical (six) Branch hours as needed for Pain (scale 1-3) or Pain (scale 4-6) (Pain). Take with food or milk. human 2019-0 Yes .5mL 0.5 mL, [facility] papillomav 10-12 Intramuscu ity of vac,9-abril(P 11:13: lar, [place] F) 13 ONCE-PRIOR Medical (GARDASIL 9 TO Branch (PF)) vial DISCHARGE, 0.5 mL 1 dose, Starting Mon10/12/18 at 0613, Until Discontinu ed, Routine, Give vaccine prior to discharge varicella 2019-0 Yes .5mL 0.5 mL, Unive rs virus 10-12 Subcutaneo ity of vaccine 11:13: us, [place] live 01 ONCE-PRIOR Medical (VARIVAX TO Branch (PF)) DISCHARGE, injection 1 dose, 0.5 mL Starting Mon10/12/18 at 0613, Until Discontinu ed, Routine, Give vaccine prior to discharge ondansetron 2018-0 2019- No 4mg 4 mg, Slow [facility] (ZOFRAN 10-12 IV Push, ity of (PF)) 04:15: 07:57 ONCE, 1 [place] injection 4 00 :00 dose, An[facility]te Med ical mg 10/11/18 at Branch 2315, Routine, PACU nalbuphine 2018-0 Yes 5mg 5 mg, Univer s (NUBAIN) 10-12 Intravenou ity o f injection 5 04:04: s, PRN, 1 [place] mg 51 dose, Medical Starting Branch [place] 10/11/18 at 2304, Until Discontinu ed, Routine, Itching, PACU HYDROcodone 2019-0 Yes 2{tbl} 2 tablet, Univers -acetaminop 10-12 Oral, ity of hen (NORCO 04:04: Q6HPRN, [place] 5) 5-325 mg 38 Starting Medi luly tablet Mon10/11/18 Branc h tablet at 2304, Until Discontinu ed, Routine, Pain (scale 7-10), If uncontroll ed by Ibuprofen HYDROcodone 2019-0 Yes 1{tbl} 1 tablet, Univers -acetaminop 10-12 Oral, ity of hen (NORCO 04:04: Q6HPRN, [place] 5) 5-325 mg 38 Starting Medi luly tablet 1 Mon10/11/18 Branc h tablet at 2304, Until Discontinu ed, Routine, Pain (scale 4-6), If uncontroll ed by Ibuprofen ibuprofen 2019-0 Yes 600mg 600 mg, Univ ers (IBU) 8 Oral, ity of tablet 600 04:04: Q6HPRN, [place] mg 38 Starting Medical [place] 10/11/18 Branch at 2304, Until Discontinu ed, Routine, Pain (scale 1-3) diphenhydrA 2019-0 Yes 25mg 25 mg, Univ ers MINE 10-12 Oral, ity of (BENADRYL) 04:04: Q6HPRN, [place] tablet 25 38 Starting Medica l mg [place] 10/11/18 Branch at 2304, Until Discontinu ed, Routine, Sleep, Itching ondansetron 2019-0 Yes 4mg 4 mg, Slow Univers (ZOFRAN 10-12 IV Push, ity of (PF)) 04:04: Q8HPRN, [place] injection 4 38 Starting Medi luly mg An[place] 10/11/18 Branch at 2304, Until Discontinu ed, Routine, Nausea and Vomiting (N/V) simethicone 2019-0 Yes 160mg 160 mg, Un pamela (GAS 10-12 Oral, ity of RELIEF) 04:04: PC+HSPRN, [place] chewable 38 Starting Medical tablet 160 Mon10/11/18 Bra nch mg at 2304, Until Discontinu ed, Routine, Gas docusate 2019-0 Yes 240mg 240 mg, Unive rs calcium 10-12 Oral, ity of (SURFAK) 04:04: QDAILYPRN, [place] capsule 240 38 Starting Medi luly mg Annette 10/11/18 Branch at 2304, Until Discontinu ed, Routine, Constipati on magnesium 2019-0 Yes 30mL 30 mL, Univer s hydroxide 10-12 Oral, ity of (MILK OF 04:04: QDAILYPRN, [place] MAGNESIA) 38 Starting Medica l 400 mg/5 mL [place] 10/11/18 Br anch suspension at 2304, 30 mL Until Discontinu ed, Routine, Constipati on bisacodyl 2019-0 Yes 10mg 10 mg, Univer s (DULCOLAX) 8-02 Rectal, ity of suppository 04:04: QDAILYPRNGunnar 10 mg 37 Starting Medical [place] 10/11/18 Branch at 2304, Until Discontinu ed, Routine, Constipati on acetaminoph 2019- No 650mg 650 mg, U nivers en 10-12 Oral, ity of (TYLENOL) 00:00: 01:53 ONCE, 1 [place] tablet 650 00 :00 dose, [place] Medi luly mg 10/11/18 at Branch 1900, Routine lactated 2019- No 1000mL at 125 Univ ers ringers IV 10-1202 mL/hr, ity of infusion 00:00: 04:04 1,000 mL, [place] 1,000 mL 00 :44 IV Medical Infusion, Branch CONTINUOUS , Starting [place] 10/11/18 at 1900, Until [place] 10/11/18 at 2304, Routine ceFAZolin 2019- No 2000mg 2 g (2,000 Univers in dextrose 10-11 mg), IV ity of (iso-os) 23:52: 01:53 [place], [place] (ANCEF) 2 08 :00 O.R. Medical gram/100 mL HOLDING Branc h Piggyback 2 ONCE, 1 g dose, Starting [place] 10/11/18 at 1852, Until Discontinu ed, 100 mL
Reas on for Anti-Infec tive: Surgical Prophylaxi s
Surgi luly Prophylaxi s: TRIBAL DELEGATE
Duration of therapy: within 24 hours of surgery sodium 2019- No 30mL 30 mL, Univers citrate-cit 10-11 Oral, ity of stephanie acid 23:52: 01:53 PRE-PROCED [place] (BICITRA) 07 :00 URE ONCE, Medic al 500-334 1 dose, Branch mg/5 mL Starting solution 30 [place] 10/11/18 mL at 1852, Until 10/13/18 at 2359, Routine, Surgery/Pr ocedure insulin Yes [id number] Take 26 Uni vers regular 7-18 units SQ ity of human 00:00: AC [place] (HUMULIN R 00 breakfast Medi luly REGULAR and 20 Branch U-100 units SQ INSULN) 100 AC supper unit/mL injection Insulin Yes [id number] Inject Univ ers Syringe-Nee 7-18 insulin SQ it y of dle U-100 00:00: 3 times a [place] (BD INSULIN day Medical SYRINGE Branch ULTRA-FINE) 1 mL 31 gauge x 5/16 Syrg terconazole Yes [id number] 80mg Insert 1 Univers 80 mg 7-18 Suppositor ity of vaginal 00:00: y into [place] suppository 00 vagina at Med ical bedtime. Branch insulin Yes [id number] Take 26 Uni vers regular 7-18 units SQ ity of human 00:00: AC [place] (HUMULIN R 00 breakfast Medi luly REGULAR and 20 Branch U-100 units SQ INSULN) 100 AC supper unit/mL injection Insulin Yes [id number] Inject Univ ers Syringe-Nee 7-18 insulin SQ it y of dle U-100 00:00: 3 times a [place] (BD INSULIN day Medical SYRINGE Branch ULTRA-FINE) 1 mL 31 gauge x 5/16 Syrg terconazole Yes [id number] 80mg Insert 1 [facility] 80 mg 7-18 Suppositor ity of vaginal 00:00: y into [place] suppository 00 vagina at Med ica bedtime. Branch insulin Yes [id number] Take 26 Uni vers regular 7-18 units SQ ity of human 00:00: AC [place] (HUMULIN R 00 breakfast Medi luly REGULAR and 20 Branch U-100 units SQ INSULN) 100 AC supper unit/mL injection Insulin Yes [id number] Inject Univ ers Syringe-Nee 7-18 insulin SQ it y of dle U-100 00:00: 3 times a [place] (BD INSULIN day Medical SYRINGE Branch ULTRA-FINE) 1 mL 31 gauge x 5/16 Syrg terconazole Yes [id number] 80mg Insert 1 [facility] 80 mg 7-18 Suppositor ity of vaginal 00:00: y into [place] suppository 00 vagina at Med ical bedtime. Branch insulin Yes [id number] Take 26 Uni vers regular 7-18 units SQ ity of human 00:00: AC [place] (HUMULIN R 00 breakfast Medi luly REGULAR and 20 Branch U-100 units SQ INSULN) 100 AC supper unit/mL injection Insulin Yes [id number] Inject Univ ers Syringe-Nee 7-18 insulin SQ it y of dle U-100 00:00: 3 times a [place] (BD INSULIN day Medical SYRINGE Branch ULTRA-FINE) 1 mL 31 gauge x 5/16 Syrg terconazole Yes [id number] 80mg Insert 1 [facility] 80 mg 7-18 Suppositor ity of vaginal 00:00: y into [place] suppository 00 vagina at Med ical bedtime. Branch insulin Yes [id number] Take 26 Uni vers regular 7-18 units SQ ity of human 00:00: AC [place] (HUMULIN R 00 breakfast Medi luly REGULAR and 20 Branch U-100 units SQ INSULN) 100 AC supper unit/mL injection Insulin Yes [id number] Inject Univ ers Syringe-Nee 7-18 insulin SQ it y of dle U-100 00:00: 3 times a [place] (BD INSULIN day Medical SYRINGE Branch ULTRA-FINE) 1 mL 31 gauge x 5/16 Syrg terconazole Yes [id number] 80mg Insert 1 [facility] 80 mg 7-18 Suppositor ity of vaginal 00:00: y into [place] suppository 00 vagina at Med ical bedtime. Branch insulin Yes [id number] Take 26 Uni vers regular 7-18 units SQ ity of human 00:00: AC [place] (HUMULIN R 00 breakfast Medi luly REGULAR and 20 Branch U-100 units SQ INSULN) 100 AC supper unit/mL injection Insulin Yes [id number] Inject Univ ers Syringe-Nee 7-18 insulin SQ it y of dle U-100 00:00: 3 times a [place] (BD INSULIN day Medical SYRINGE Branch ULTRA-FINE) 1 mL 31 gauge x 5/16 Syrg terconazole Yes [id number] 80mg Insert 1 [facility] 80 mg 7-18 Suppositor ity of vaginal 00:00: y into [place] suppository 00 vagina at Med ical bedtime. Branch insulin Yes [id number] Take 26 Uni vers regular 7-18 units SQ ity of human 00:00: AC [place] (HUMULIN R 00 breakfast Medi luly REGULAR and 20 Branch U-100 units SQ INSULN) 100 AC supper unit/mL injection Insulin Yes [id number] Inject Univ ers Syringe-Nee 7-18 insulin SQ it y of dle U-100 00:00: 3 times a [place] (BD INSULIN day Medical SYRINGE Branch ULTRA-FINE) 1 mL 31 gauge x 5/16 Syrg terconazole 2019-0 Yes [id number] 80mg Insert 1 Univers 80 mg 7-18 Suppositor ity of vaginal 00:00: y into [place] suppository 00 vagina at [facility] bedtime. Branch insulin NPH 2018- Yes [id number] Inject 48 Univers 100 unit/mL 7-03 units ity of injection 00:00: [place] 00 breakfast Medical and 18 Branch units prior to dinner. lancets Yes [id number] Use as Univ ers (SAFETY 7-03 directed ity of LANCETS) 21 00:00: [place] [facility] Branch Blood-Gluco Yes [id number] Use as Univers se Meter 7-03 directed ity of (FREESTYLE 00:00: [place] LITE METER) 00 Medical Kit Branch blood sugar Yes [id number] Use as Univers diagnostic 7-03 directed ity o f (FREESTYLE 00:00: [place] LITE 00 Medical STRIPS) Branch strip lancets Yes [id number] Use as Univ ers (SAFETY 7-03 directed ity of LANCETS) 21 00:00: [facility] 00 Medical Branch insulin NPH 2018- Yes [id number] Inject 48 Univers 100 unit/mL 7-03 units ity of injection 00:00: prior [place] 00 breakfast Medical and 18 Branch units prior to dinner. lancets Yes [id number] Use as Univ ers (SAFETY 7-03 directed ity of LANCETS) 21 00:00: [place] gauge Misc 00 Medical Branch Blood-Gluco 2018-0 Yes [id number] Use as Univers se Meter 7-03 directed ity of (FREESTYLE 00:00: [place] LITE METER) 00 Medical Kit Branch blood sugar 2019- Yes [id number] Use as Univers diagnostic 7-03 directed ity o f (FREESTYLE 00:00: [place] LITE 00 Medical STRIPS) Branch strip lancets 2018- Yes [id number] Use as Univ ers (SAFETY 7-03 directed ity of LANCETS) 21 00:00: [place] gauge Misc 00 Medical Branch insulin NPH 2018-0 Yes [id number] Inject 48 [facility] 100 unit/mL 7-03 units ity of injection 00:00: prior to [place] 00 breakfast Medical and 18 Branch units prior to dinner. lancets 2019-0 Yes [id number] Use as Univ ers (SAFETY 7-03 directed ity of LANCETS) 21 00:00: [place] gauge Misc 00 Medical Branch Blood-Gluco 2019-0 Yes [id number] Use as Univers se Meter 7-03 directed ity of (FREESTYLE 00:00: [place] LITE METER) 00 Medical Kit Branch blood sugar 2019-0 Yes [id number] Use as Univers diagnostic 7-03 directed ity o f (FREESTYLE 00:00: [place] LITE 00 Medical STRIPS) Branch strip lancets 2019-0 Yes [id number] Use as Univ ers (SAFETY 7-03 directed ity of LANCETS) 21 00:00: [place] gauge Misc 00 Medical Branch insulin NPH 2019-0 Yes [id number] Inject 48 [facility] 100 unit/mL 7-03 units ity of injection 00:00: prior to [place] 00 breakfast Medical and 18 Branch units prior to dinner. lancets 2019-0 Yes [id number] Use as Univ ers (SAFETY 7-03 directed ity of LANCETS) 21 00:00: [place] gauge Mis 00 Medical Branch Blood-Gluco 2019-0 Yes [id number] Use as Univers se Meter 7-03 directed ity of (FREESTYLE 00:00: [place] LITE METER) 00 Medical Kit Branch blood sugar 2019-0 Yes [id number] Use as Univers diagnostic 7-03 directed ity o f (FREESTYLE 00:00: [place] LITE 00 Medical STRIPS) Branch strip lancets 2019-0 Yes [id number] Use as Univ ers (SAFETY 7-03 directed ity of LANCETS) 21 00:00: [place] gauge Misc 00 Medical Branch insulin NPH 2019-0 Yes [id number] Inject 48 [facility] 100 unit/mL 7-03 units ity of injection 00:00: prior [place] 00 breakfast Medical and 18 Branch units prior to dinner. lancets 2019-0 Yes [id number] Use as Univ ers (SAFETY 7-03 directed ity of LANCETS) 21 00:00: [place] gauge Misc 00 Medical Branch Blood-Gluco 2019-0 Yes [id number] Use as Univers se Meter 7-03 directed ity of (FREESTYLE 00:00: [place] LITE METER) 00 Medical Kit Branch blood sugar 2019-0 Yes [id number] Use as Univers diagnostic 7-03 directed ity o f (FREESTYLE 00:00: [place] LITE 00 Medical STRIPS) Branch strip lancets 2019-0 Yes [id number] Use as Univ ers (SAFETY 7-03 directed ity of LANCETS) 21 00:00: [place] gauge [facility] 00 Medical Branch insulin NPH 2019-0 Yes [id number] Inject 48 Univers 100 unit/mL 7-03 units ity of injection 00:00: prior [place] 00 breakfast Medical and 18 Branch units prior to dinner. lancets 2019-0 Yes [id number] Use as Univ ers (SAFETY 7-03 directed ity of LANCETS) 21 00:00: [facility] 00 Medical Branch Blood-Gluco 2019-0 Yes [id number] Use as Univers se Meter 7-03 directed ity of (FREESTYLE 00:00: [place] LITE METER) 00 Medical Kit Branch blood sugar 2019-0 Yes [id number] Use as Univers diagnostic 7-03 directed ity o f (FREESTYLE 00:00: [place] LITE 00 Medical STRIPS) Branch strip lancets 2019-0 Yes [id number] Use as Univ ers (SAFETY 7-03 directed ity of LANCETS) 21 00:00: [facility] 00 Medical Branch insulin NPH 2019-0 Yes [id number] Inject 48 Univers 100 unit/mL 7-03 units ity of injection 00:00: prior [place] 00 breakfast Medical and 18 Branch units prior to dinner. lancets 2019-0 Yes [id number] Use as Univ ers (SAFETY 7-03 directed ity of LANCETS) 21 00:00: [facility] 00 Medical Branch Blood-Gluco 2019-0 Yes [id number] Use as Univers se Meter 7-03 directed ity of (FREESTYLE 00:00: [place] LITE METER) 00 Medical Kit Branch blood sugar 2019-0 Yes [id number] Use as Univers diagnostic 7-03 directed ity o f (FREESTYLE 00:00: [place] LITE 00 Medical STRIPS) Branch strip lancets 2019-0 Yes [id number] Use as Univ ers (SAFETY 7-03 directed ity of LANCETS) 21 00:00: [facility] 00 Medical Branch insulin NPH 2019-0 2019- No [id number] Inject 48 Univers 100 unit/mL 7-03 08-03 units ity of injection 00:00: 00:00 prior to [place] 00 :00 breakfast Medical and 18 Branch units prior to dinner. lancets 2019-0 2019- No [id number] Use as Uni vers (SAFETY 09-12 directed ity of LANCETS) 21 00:00: 00:00 [place] gauge Misc 00 :00 Medical Branch Blood-Gluco 2018-0 2019- No [id number] Use as Univers se Meter 09-12 directed ity of (FREESTYLE 00:00: 00:00 [place] LITE METER) 00 :00 Medical Kit Branch blood sugar 2019- No [id number] Use as Univers diagnostic 09-12 directed ity of (FREESTYLE 00:00: 00:00 [place] LITE 00 :00 Medical STRIPS) Branch strip lancets 2018- 2019- No [id number] Use as Uni vers (SAFETY 09-12 directed ity of LANCETS) 21 00:00: 00:00 [place] gauge Misc 00 :00 Medical Branch blood sugar 2019- Yes Use as Univ ers diagnostic 6-25 directed ity o f (FREESTYLE 00:00: [place] LITE 00 Medical STRIPS) Branch strip blood sugar 2019- Yes Use as Univ ers diagnostic 6-25 directed ity o f (FREESTYLE 00:00: [place] LITE 00 Medical STRIPS) Branch strip blood sugar 2019- Yes Use as Univ ers diagnostic 6-25 directed ity o f (FREESTYLE 00:00: [place] LITE 00 Medical STRIPS) Branch strip blood sugar 2019- Yes Use as Univ ers diagnostic 6-25 directed ity o f (FREESTYLE 00:00: [place] LITE 00 Medical STRIPS) Branch strip blood sugar 2019- Yes Use as Univ ers diagnostic 6-25 directed ity o f (FREESTYLE 00:00: [place] LITE 00 Medical STRIPS) Branch strip blood sugar 2019- Yes Use as Univ ers diagnostic 6-25 directed ity o f (FREESTYLE 00:00: [place] LITE 00 Medical STRIPS) Branch strip blood sugar 2019-0 Yes Use as Univ ers diagnostic 6-25 directed ity o f (FREESTYLE 00:00: [place] LITE 00 Medical STRIPS) Branch strip blood sugar 2019-0 2019- No Use as Uni vers diagnostic 6-25 10-13 directed ity of (FREESTYLE 00:00: 00:00 [place] LITE 00 :00 Medical STRIPS) Branch strip blood sugar 2019-0 Yes [id number] check U nivers diagnostic 6-24 glucose ity of (FREESTYLE 00:00: log 4x [place] LITE 00 daily Medical STRIPS) Branch strip lancets 2019-0 Yes [id number] Use as Univ ers (FREESTYLE 6-24 directed ity o f LANCETS) 28 00:00: [facility] Medical Branch blood sugar 2019-0 Yes [id number] check U nivers diagnostic 6-24 glucose ity of (FREESTYLE 00:00: log 4x [place] LITE 00 daily Medical STRIPS) Branch strip lancets 2019-0 Yes [id number] Use as Univ ers (FREESTYLE 6-24 directed ity o f LANCETS) 28 00:00: [facility] Medical Branch blood sugar 2019-0 Yes [id number] check U nivers diagnostic 6-24 glucose ity of (FREESTYLE 00:00: log 4x [place] LITE 00 daily Medical STRIPS) Branch strip lancets 2019-0 Yes [id number] Use as Univ ers (FREESTYLE 6-24 directed ity o f LANCETS) 28 00:00: [facility] Medical Branch blood sugar 2019-0 Yes [id number] check U nivers diagnostic 6-24 glucose ity of (FREESTYLE 00:00: log 4x [place] LITE 00 daily Medical STRIPS) Branch strip lancets 2019-0 Yes [id number] Use as Univ ers (FREESTYLE 6-24 directed ity o f LANCETS) 28 00:00: [facility] Medical Branch blood sugar 2019-0 Yes [id number] check U nivers diagnostic 6-24 glucose ity of (FREESTYLE 00:00: log 4x [place] LITE 00 daily Medical STRIPS) Branch strip lancets 2019-0 Yes [id number] Use as Univ ers (FREESTYLE 6-24 directed ity o f LANCETS) 28 00:00: [facility] Medical Branch blood sugar 2019-0 Yes [id number] check U nivers diagnostic 6-24 glucose ity of (FREESTYLE 00:00: log 4x [place] LITE 00 daily Medical STRIPS) Branch strip lancets 2019-0 Yes [id number] Use as Univ ers (FREESTYLE 6-24 directed ity o f LANCETS) 28 00:00: [facility] Medical Branch blood sugar 2019-0 Yes [id number] check U nivers diagnostic 6-24 glucose ity of (FREESTYLE 00:00: log 4x [place] LITE 00 daily Medical STRIPS) Branch strip lancets Yes [id number] Use as Univ ers (FREESTYLE 6-24 directed ity o f LANCETS) 28 00:00: [facility] 00 Medical Branch blood sugar 2019- No [id number] check Univers diagnostic 6-24 08-03 glucose ity o f (FREESTYLE 00:00: 00:00 log 4x [place] LITE 00 :00 daily Medical STRIPS) Branch strip lancets 2019- No [id number] Use as Uni vers (FREESTYLE 6-24 08-03 directed ity of LANCETS) 28 00:00: 00:00 [place] [facility] 00 :00 Medical Branch ondansetron Yes [id number] 4mg Take 1 Univers 4 mg tablet 5-26 tablet by ity of 00:00: mouth [place] 00 every 8 Medical (eight) Branch hours as needed for Nausea and Vomiting (N/V). ondansetron Yes [id number] 4mg Take 1 Univers 4 mg tablet 5-26 tablet by ity of 00:00: mouth [place] 00 every 8 Medical (eight) Branch hours as needed for Nausea and Vomiting (N/V). ondansetron 2018-0 Yes [id number] 4mg Take 1 Univers 4 mg tablet 5-26 tablet by ity of 00:00: mouth [place] 00 every 8 Medical (eight) Branch hours as needed for Nausea and Vomiting (N/V). ondansetron 2018-0 Yes [id number] 4mg Take 1 Univers 4 mg tablet 5-26 tablet by ity of 00:00: mouth [place] 00 every 8 Medical (eight) Branch hours as needed for Nausea and Vomiting (N/V). ondansetron 2018-0 Yes [id number] 4mg Take 1 Univers 4 mg tablet 5-26 tablet by ity of 00:00: mouth [place] 00 every 8 Medical (eight) Branch hours as needed for Nausea and Vomiting (N/V). ondansetron 2019-0 Yes [id number] 4mg Take 1 Univers 4 mg tablet 5-26 tablet by ity of 00:00: mouth [place] 00 every 8 Medical (eight) Branch hours as needed for Nausea and Vomiting (N/V). ondansetron 2019-0 Yes [id number] 4mg Take 1 Univers 4 mg tablet 5-26 tablet by ity of 00:00: mouth [place] 00 every 8 Medical (eight) Branch hours as needed for Nausea and Vomiting (N/V). ondansetron 2018- 2019- No [id number] 4mg Take 1 Univers 4 mg tablet 5-26 08-03 tablet by it y of 00:00: 00:00 mouth [place] 00 :00 every 8 Medical (eight) Branch hours as needed for Nausea and Vomiting (N/V). Blood-Gluco 2019-0 Yes [id number] Use as Univers se Meter 5-24 directed ity of (FREESTYLE 00:00: [place] LITE METER) 00 Medical Kit Branch ascorbic 2019-0 Yes [id number] 500mg Take 1 U nivers acid, 5-24 tablet by ity of vitamin C, 00:00: mouth 3 [place] 500 mg 00 (three) Medical tablet times Branch daily. ferrous 2019-0 Yes [id number] 325mg Take 1 Un pamela sulfate 325 5-24 tablet by ity of mg (65 mg 00:00: mouth 2 [place] iron) 00 (two) Medical tablet times Branch daily. Blood-Gluco 2019-0 Yes [id number] Use as Univers se Meter 5-24 directed ity of (FREESTYLE 00:00: [place] LITE METER) 00 Medical Kit Branch ascorbic 2019-0 Yes [id number] 500mg Take 1 U nivers acid, 5-24 tablet by ity of vitamin C, 00:00: mouth 3 [place] 500 mg 00 (three) Medical tablet times Branch daily. ferrous 2019-0 Yes [id number] 325mg Take 1 Un pam[place] sulfate 325 5-24 tablet by ity of mg (65 mg 00:00: mouth 2 [place] iron) 00 (two) Medical tablet times Branch daily. Blood-Gluco 2019-0 Yes [id number] Use as Univers se Meter 5-24 directed ity of (FREESTYLE 00:00: [place] LITE METER) 00 Medical Kit Branch ascorbic 2019-0 Yes [id number] 500mg Take 1 U nivers acid, 5-24 tablet by ity of vitamin C, 00:00: mouth 3 [place] 500 mg 00 (three) Medical tablet times Branch daily. ferrous 2019-0 Yes [id number] 325mg Take 1 Un pamela sulfate 325 5-24 tablet by ity of mg (65 mg 00:00: mouth 2 [place] iron) 00 (two) Medical tablet times Branch daily. Blood-Gluco 2018-0 Yes [id number] Use as Univers se Meter 5-24 directed ity of (FREESTYLE 00:00: [place] LITE METER) 00 Medical Kit Branch ascorbic 2019-0 Yes [id number] 500mg Take 1 U nivers acid, 5-24 tablet by ity of vitamin C, 00:00: mouth 3 [place] 500 mg 00 (three) Medical tablet times Branch daily. ferrous 2018- Yes [id number] 325mg Take 1 Un pam[place] sulfate 325 5-24 tablet by ity of mg (65 mg 00:00: mouth 2 [place] iron) 00 (two) Medical tablet times Branch daily. Blood-Gluco Yes [id number] Use as Univers se Meter 5-24 directed ity of (FREESTYLE 00:00: [place] LITE METER) 00 Medical Kit Branch ascorbic 2018-0 Yes [id number] 500mg Take 1 U nivers acid, 5-24 tablet by ity of vitamin C, 00:00: mouth 3 [place] 500 mg 00 (three) Medical tablet times Branch daily. ferrous Yes [id number] 325mg Take 1 Un pamela sulfate 325 5-24 tablet by ity of mg (65 mg 00:00: mouth 2 [place] iron) 00 (two) Medical tablet times Branch daily. Blood-Gluco Yes [id number] Use as Univers se Meter 5-24 directed ity of (FREESTYLE 00:00: [place] LITE METER) 00 Medical Kit Branch ascorbic 2018-0 Yes [id number] 500mg Take 1 U nivers acid, 5-24 tablet by ity of vitamin C, 00:00: mouth 3 [place] 500 mg 00 (three) Medical tablet times Branch daily. ferrous 2019- Yes [id number] 325mg Take 1 Un pam[place] sulfate 325 5-24 tablet by ity of mg (65 mg 00:00: mouth 2 [place] iron) 00 (two) Medical tablet times Branch daily. Blood-Gluco Yes [id number] Use as Univers se Meter 5-24 directed ity of (FREESTYLE 00:00: [place] LITE METER) 00 Medical Kit Branch ascorbic 2018-0 Yes [id number] 500mg Take 1 U nivers acid, 5-24 tablet by ity of vitamin C, 00:00: mouth 3 [place] 500 mg 00 (three) Medical tablet times Branch daily. ferrous Yes [id number] 325mg Take 1 Un pam[place] sulfate 325 - tablet by ity of mg (65 mg 00:00: mouth 2 [place] iron) 00 (two) Medical tablet times Branch daily. Blood-Gluco 2019- No [id number] Use as Univers se Meter 08-03 directed ity of (FREESTYLE 00:00: 00:00 [place] LITE METER) 00 :00 Medical Kit Branch ascorbic 2019- No [id number] 500mg Take 1 Univers acid, 08-03 tablet by ity of vitamin C, 00:00: 00:00 mouth 3 [place] 500 mg 00 :00 (three) Medical tablet times Branch daily. ferrous 2018- No [id number] 325mg Take 1 U nivers sulfate 325 08-03 tablet by it y of mg (65 mg 00:00: 00:00 mouth 2 [place] iron) 00 :00 (two) Medical tablet times Branch daily. PNV without Yes [id number] 1{each} Take 1 Univers Ca-Iron 1-22 Each by ity of PsCmplx-FA 00:00: mouth [place] (SELECT-OB, daily. Medica l FOLIC Branch ACID,) 29 mg iron- 1 mg Chew PNV without 2018- Yes [id number] 1{each} Take 1 Univers Ca-Iron 1-22 Each by ity of PsCmplx-FA 00:00: mouth [place] (SELECT-OB, 00 daily. Medica l FOLIC Branch ACID,) 29 mg iron- 1 mg Chew PNV without 2018- Yes [id number] 1{each} Take 1 Univers Ca-Iron 1-22 Each by ity of PsCmplx-FA 00:00: mouth [place] (SELECT-OB, 00 daily. Medica l FOLIC Branch ACID,) 29 mg iron- 1 mg Chew PNV without 2018- Yes [id number] 1{each} Take 1 Univers Ca-Iron 1-22 Each by ity of PsCmplx-FA 00:00: mouth [place] (SELECT-OB, 00 daily. Medica l FOLIC Branch ACID,) 29 mg iron- 1 mg Chew PNV without 2019- Yes [id number] 1{each} Take 1 Univers Ca-Iron 1-22 Each by ity of PsCmplx-FA 00:00: mouth [place] (SELECT-OB, 00 daily. Medica l FOLIC Branch ACID,) 29 mg iron- 1 mg Chew PNV without 2019-0 Yes [id number] 1{each} Take 1 Univers Ca-Iron 1-22 Each by ity of PsCmplx-FA 00:00: mouth [place] (SELECT-OB, 00 daily. Medica l FOLIC Branch ACID,) 29 mg iron- 1 mg Chew PNV without 2019-0 Yes [id number] 1{each} Take 1 Univers Ca-Iron 1-22 Each by ity of PsCmplx-FA 00:00: mouth [place] (SELECT-OB, 00 daily. Medica l FOLIC Branch ACID,) 29 mg iron- 1 mg Chew PNV without 2019-0 2019- No [id number] 1{each} Take 1 Univers Ca-Iron 1-22 08-03 Each by ity of PsCmplx-FA 00:00: 00:00 mouth [place] (SELECT-OB, 00 :00 daily. Medica l FOLIC Branch ACID,) 29 mg iron- 1 mg Chew 2013-03 Yes 1{tbl} Take 1 Tab U nivers vitamin 2-13 by mouth ity of w/FA 00:00: daily. [place] (PRENATABS 00 Medical RX) tablet Branch 2013-03 Yes 1{tbl} Take 1 Tab U nivers vitamin 2-13 by mouth ity of w/FA 00:00: daily. [place] (PRENATABS 00 Medical RX) tablet [place] 2013-03 Yes 1{tbl} Take 1 Tab U nivers vitamin 2-13 by mouth ity of w/FA 00:00: daily. [place] (PRENATABS 00 Medical RX) tablet Branch 2013-03 Yes 1{tbl} Take 1 Tab U nivers vitamin 2-13 by mouth ity of w/FA 00:00: daily. [place] (PRENATABS 00 Medical RX) tablet Branch 2013-03 Yes 1{tbl} Take 1 Tab U nivers vitamin 2-13 by mouth ity of w/FA 00:00: daily. [place] (PRENATABS 00 Medical RX) tablet Branch 2013-03 Yes 1{tbl} Take 1 Tab U nivers vitamin 2-13 by mouth ity of w/FA 00:00: daily. [place] (PRENATABS 00 Medical RX) tablet Branch 2013-03 Yes 1{tbl} Take 1 Tab U nivers vitamin 2-13 by mouth ity of w/FA 00:00: daily. [place] (PRENATABS 00 Medical RX) tablet Branch 2013-03 2019- No 1{tbl} Take 1 Tab [facility] vitamin 2-13 - by mouth ity of w/FA 00:00: 00:00 daily. [place] (PRENATABS 00 :00 Medical RX) tablet Branch No known No [facility] medications ity of [facility] Immunizations Ordered Filled Date Status Comments Source Immunization Name Immunization Name TD 2019-12-11 Completed University of 00:00: [facility] TDAP 2019-12-11 Completed University of 00:00:00 [facility] TDAP 2019-12-11 Completed University of 00:00:00 [facility] TDAP 2019-12-11 Completed University of 00:00:00 [facility] TDAP 2019-12-11 Completed University of 00:00:00 [facility] TDAP 2019-12-11 Completed University of 00:00:00 [facility] TDAP 2019-12-11 Completed University of 00:00:00 [facility] TDAP 2019-12-11 Completed University of 00:00:00 [facility] TDAP 2019-12-11 Completed University of 00:00:00 [facility] TDAP 2019-12-11 Completed University of 00:00:00 [facility] TDAP 2019-12-11 Completed University of 00:00:00 [facility] TDAP 2019-12-11 Completed University of 00:00:00 [facility] TDAP 2019-12-11 Completed [facility] of 00:00:00 [facility] TDAP 2019-12-11 Completed [facility] of 00:00:00 [facility] TDAP 2019-12-11 Completed [facility] of 00:00:00 [facility] TDAP 2019-12-11 Completed [facility] of 00:00:00 [facility] TDAP 2019-12-11 Completed [facility] of 00:00:00 [facility] TDAP 2019-12-11 Completed [facility] of 00:00:00 [facility] TDAP 2019-12-11 Completed [facility] of 00:00:00 [facility] TDAP 2019-12-11 Completed [facility] 00:00:00 [place] [facility] TDAP 2019-12-11 Completed [facility] 00:00:00 [place] [facility] TDAP 2019-12-11 Completed [facility] 00:00:00 [place] [facility] TDAP 2019-12-11 Completed [facility] 00:00:00 [place] [facility] TDAP 2019-12-11 Completed [facility] 00:00:00 [place] [facility] TDAP 2019-12-11 Completed [facility] 00:00:00 [place] [facility] TDAP 2019-12-11 Completed [facility] 00:00:00 [place] [facility] TDAP 2019-12-11 Completed [facility] of 00:00:00 [place] [facility] TDAP 2019-12-11 Completed [facility] 00:00:00 [place] [facility] TDAP 2019-12-11 Completed [facility] 00:00:00 [place] [facility] TDAP 2019-12-11 Completed [facility] 00:00:00 [place] [facility] TDAP 2019-12-11 Completed [facility] 00:00:00 [place] [facility] TDAP 2019-12-11 Completed [facility] 00:00:00 [place] [facility] TDAP 2019-12-11 Completed [facility] 00:00:00 [place] [facility] TDAP 2019-12-11 Completed [facility] 00:00:00 [place] [facility] TDAP 2019-12-11 Completed [facility] 00:00:00 [place] [facility] TDAP 2019-12-11 Completed [facility] 00:00:00 [place] [facility] TDAP 2019-12-11 Completed [facility] 00:00:00 [place] [facility] TDAP 2019-12-11 Completed [facility] 00:00:00 [place] [facility] TDAP 2019-12-11 Completed [facility] 00:00:00 [place] [facility] TDAP 2019-12-11 Completed [facility] 00:00:00 [place] [facility] TDAP 2018-08-20 Completed [facility] 00:00:00 [place] [facility] TDAP 2018-08-20 Completed [facility] 00:00:00 [place] [facility] TDAP 2018-08-20 Completed [facility] 00:00:00 [place] [facility] TDAP 2018-08-20 Completed [facility] 00:00:00 [place] [facility] TDAP 2018-08-20 Completed [facility] of 00:00:00 [place] [facility] TDAP 2018-08-20 Completed [facility] of 00:00:00 [place] [facility] TDAP 2018-08-20 Completed [facility] of 00:00:00 [place] [facility] Tdap 2018-08-20 Completed [facility] 00:00:00 [place] [facility] TDAP 2018-08-20 Completed [facility] 00:00:00 [place] [facility] TDAP 2018-08-20 Completed [facility] 00:00:00 [facility] TDAP 2018-08-20 Completed [facility] of 00:00:00 [place] [facility] TDAP 2018-08-20 Completed [facility] 00:00:00 [place] [facility] TDAP 2018-08-20 Completed [facility] 00:00:00 [place] [facility] TDAP 2018-08-20 Completed [facility] 00:00:00 [place] [facility] TDAP 2018-08-20 Completed [facility] of 00:00:00 [place] [facility] TDAP 2018-08-20 Completed [facility] of 00:00:00 [place] [facility] TDAP 2018-08-20 Completed [facility] of 00:00:00 [place] [facility] TDAP 2018-08-20 Completed [facility] 00:00:00 [place] [facility] TDAP 2018-08-20 Completed [facility] of 00:00:00 [place] [facility] TDAP 2018-08-20 Completed [facility] of 00:00:00 [place] [facility] Tdap 2018-08-20 Completed [facility] of 00:00:00 [place] [facility] TDAP 2018-08-20 Completed [facility] 00:00:00 [place] [facility] TDAP 2018-08-20 Completed [facility] of 00:00:00 [place] [facility] TDAP 2018-08-20 Completed [facility] 00:00:00 [place] [facility] TDAP 2018-08-20 Completed [facility] of 00:00:00 [place] [facility] TDAP 2018-08-20 Completed [facility] of 00:00:00 [place] [facility] TDAP 2018-08-20 Completed [facility] 00:00:00 [place] [facility] TDAP 2018-08-20 Completed [facility] of 00:00:00 [place] [facility] TDAP 2018-08-20 Completed [facility] of 00:00:00 [place] [facility] TDAP 2018-08-20 Completed [facility] of 00:00:00 [place] [facility] TDAP 2018-08-20 Completed [facility] of 00:00:00 [place] [facility] Tdap 2018-08-20 Completed [facility] of 00:00:00 [place] [facility] TDAP 2018-08-20 Completed [facility] of 00:00:00 [place] [facility] TDAP 2018-08-20 Completed [facility] of 00:00:00 [place] [facility] TDAP 2018-08-20 Completed [facility] of 00:00:00 [place] [facility] TDAP 2018-08-20 Completed [facility] 00:00:00 [place] [facility] Tdap 2018-08-20 Completed [facility] of 00:00:00 [place] [facility] Tdap 2018-08-20 Completed [facility] of 00:00:00 [place] [facility] Tdap 2018-08-20 Completed [facility] of 00:00:00 [place] [facility] Tdap 2018-08-20 Completed [facility] of 00:00:00 [place] [facility] Tdap 2018-08-20 Completed [facility] of 00:00:00 [place] [facility] Tdap 2018-08-20 Completed [facility] of 00:00:00 [place] [facility] Tdap 2018-08-20 Completed [facility] of 00:00:00 [place] [facility] Tdap 2018-08-20 Completed [facility] of 00:00:00 [place] [facility] Tdap 2018-08-20 Completed [facility] of 00:00:00 [place] [facility] Tdap 2018-08-20 Completed [facility] of 00:00:00 [place] [facility] Tdap 2018-08-20 Completed [facility] of 00:00:00 [place] [facility] TDAP 2018-08-20 Completed [facility] of 00:00:00 [place] [facility] TDAP 2018-08-20 Completed [facility] of 00:00:00 [place] [facility] Tdap 2018-08-20 Completed [facility] of 00:00:00 [place] [facility] TDAP 2018-08-20 Completed [facility] of 00:00:00 [place] [facility] TDAP 2018-08-20 Completed [facility] of 00:00:00 [place] [facility] TDAP 2018-08-20 Completed [facility] of 00:00:00 [place] [facility] TDAP 2018-08-20 Completed [facility] of 00:00:00 [place] [facility] TDAP 2018-08-20 Completed [facility] of 00:00:00 [place] [facility] TDAP 2018-08-20 Completed [facility] of 00:00:00 [place] [facility] TDAP 2018-08-20 Completed [facility] 00:00:00 [place] [facility] TDAP 2018-08-20 Completed [facility] 00:00:00 [place] [facility] TDAP 2018-08-20 Completed [facility] of 00:00:00 [place] [facility] TDAP 2018-08-20 Completed [facility] of 00:00:00 [place] [facility] TDAP 2018-08-20 Completed [facility] of 00:00:00 [place] [facility] TDAP 2018-08-20 Completed [facility] of 00:00:00 [place] [facility] TDAP 2018-08-20 Completed [facility] of 00:00:00 [facility] TDAP 2018-08-20 Completed University of 00:00:00 [facility] Tdap 2018-08-20 Completed University of 00:00:00 [facility] TDAP 2018-08-20 Completed University of 00:00:00 [facility] MMR 2014-02-23 Completed University of 00:00:00 [facility] Varicella 2014-02-23 Completed University of (varivax)(chicken 00:00:00 [place] [facility] pox) [facility] MMR 2014-02-23 Completed University of 00:00:00 [facility] Varicella 2014-02-23 Completed University of (varivax)(chicken 00:00:00 [place] [facility] pox) [facility] MMR 2014-02-23 Completed University of 00:00:00 [facility] Varicella 2014-02-23 Completed University of (varivax)(chicken 00:00:00 [place] [facility] pox) [facility] MMR 2014-02-23 Completed [facility] of 00:00:00 [facility] Varicella 2014-02-23 Completed University of (varivax)(chicken 00:00:00 [place] [facility] pox) [facility] MMR 2014-02-23 Completed [facility] of 00:00:00 [facility] Varicella 2014-02-23 Completed University of (varivax)(chicken 00:00:00 [place] [facility] pox) [facility] MMR 2014-02-23 Completed [facility] of 00:00:00 [facility] Varicella 2014-02-23 Completed University of (varivax)(chicken 00:00:00 [place] [facility] pox) [facility] MMR 2014-02-23 Completed [facility] of 00:00:00 [facility] Varicella 2014-02-23 Completed University of (varivax)(chicken 00:00:00 [place] [facility] pox) [facility] MMR 2014-02-23 Completed [facility] of 00:00:00 [facility] Varicella 2014-02-23 Completed University of (varivax)(chicken 00:00:00 [place] [facility] pox) [facility] MMR 2014-02-23 Completed [facility] of 00:00:00 [facility] Varicella 2014-02-23 Completed University of (varivax)(chicken 00:00:00 [place] [facility] pox) [facility] MMR 2014-02-23 Completed [facility] of 00:00:00 [facility] Varicella 2014-02-23 Completed University of (varivax)(chicken 00:00:00 [place] [facility] pox) [facility] MMR 2014-02-23 Completed [facility] of 00:00:00 [facility] Varicella 2014-02-23 Completed University of (varivax)(chicken 00:00:00 [place] [facility] pox) [facility] MMR 2014-02-23 Completed [facility] of 00:00:00 [facility] Varicella 2014-02-23 Completed University of (varivax)(chicken 00:00:00 [place] [facility] pox) [facility] MMR 2014-02-23 Completed [facility] of 00:00:00 [facility] Varicella 2014-02-23 Completed University of (varivax)(chicken 00:00:00 [place] [facility] pox) [facility] MMR 2014-02-23 Completed [facility] of 00:00:00 [facility] Varicella 2014-02-23 Completed [facility] of (varivax)(chicken 00:00:00 [place] [facility] pox[facility] 2014-02-23 Completed University of 00:00:00 [facility] Varicella 2014-02-23 Completed [facility] of (varivax)(chicken 00:00:00 [place] [facility] pox[facility] 2014-02-23 Completed University of 00:00:00 [facility] Varicella 2014-02-23 Completed [facility] of (varivax)(chicken 00:00:00 [place] [facility] pox) [facility] MMR 2014-02-23 Completed [facility] of 00:00:00 [facility] Varicella 2014-02-23 Completed [facility] of (varivax)(chicken 00:00:00 [place] [facility] pox[facility] 2014-02-23 Completed [facility] of 00:00:00 [facility] Varicella 2014-02-23 Completed [facility] of (varivax)(chicken 00:00:00 [place] [facility] pox) [facility] MMR 2014-02-23 Completed [facility] of 00:00:00 [facility] Varicella 2014-02-23 Completed [facility] of (varivax)(chicken 00:00:00 [place] [facility] pox) [facility] MMR 2014-02-23 Completed [facility] of 00:00:00 [facility] Varicella 2014-02-23 Completed [facility] of (varivax)(chicken 00:00:00 [place] [facility] pox) [facility] MMR 2014-02-23 Completed [facility] of 00:00:00 [facility] Varicella 2014-02-23 Completed University of (varivax)(chicken 00:00:00 [place] [facility] pox[facility] 2014-02-23 Completed University of 00:00:00 [facility] Varicella 2014-02-23 Completed University of (varivax)(chicken 00:00:00 [place] [facility] pox) [facility] MMR 2014-02-23 Completed [facility] of 00:00:00 [facility] Varicella 2014-02-23 Completed University of (varivax)(chicken 00:00:00 [place] [facility] pox) [facility] MMR 2014-02-23 Completed [facility] of 00:00:00 [facility] Varicella 2014-02-23 Completed University of (varivax)(chicken 00:00:00 [place] [facility] pox) [facility] MMR 2014-02-23 Completed [facility] of 00:00:00 [facility] Varicella 2014-02-23 Completed University of (varivax)(chicken 00:00:00 [place] [facility] pox[facility] 2014-02-23 Completed University of 00:00:00 [facility] Varicella 2014-02-23 Completed University of (varivax)(chicken 00:00:00 [place] [facility] pox[facility] 2014-02-23 Completed [facility] of 00:00:00 [facility] Varicella 2014-02-23 Completed University of (varivax)(chicken 00:00:00 [place] [facility] pox[facility] 2014-02-23 Completed University of 00:00:00 [facility] Varicella 2014-02-23 Completed [facility] of (varivax)(chicken 00:00:00 [place] [facility] pox[facility] 2014-02-23 Completed University of 00:00:00 [facility] Varicella 2014-02-23 Completed [facility] of (varivax)(chicken 00:00:00 [place] [facility] pox) [facility] MMR 2014-02-23 Completed [facility] of 00:00:00 [facility] Varicella 2014-02-23 Completed [facility] of (varivax)(chicken 00:00:00 [place] [facility] pox) [facility] MMR 2014-02-23 Completed [facility] of 00:00:00 [facility] Varicella 2014-02-23 Completed [facility] of (varivax)(chicken 00:00:00 [place] [facility] pox[facility] 2014-02-23 Completed University of 00:00:00 [facility] Varicella 2014-02-23 Completed [facility] of (varivax)(chicken 00:00:00 [place] [facility] pox[facility] 2014-02-23 Completed University of 00:00:00 [facility] Varicella 2014-02-23 Completed [facility] of (varivax)(chicken 00:00:00 [place] [facility] pox) [facility] MMR 2014-02-23 Completed [facility] of 00:00:00 [facility] Varicella 2014-02-23 Completed [facility] of (varivax)(chicken 00:00:00 [place] [facility] pox) [facility] MMR 2014-02-23 Completed [facility] of 00:00:00 [facility] Varicella 2014-02-23 Completed [facility] of (varivax)(chicken 00:00:00 [place] [facility] pox) [facility] MMR 2014-02-23 Completed [facility] of 00:00:00 [facility] Varicella 2014-02-23 Completed [facility] of (varivax)(chicken 00:00:00 [place] [facility] pox[facility] 2014-02-23 Completed [facility] of 00:00:00 [facility] Varicella 2014-02-23 Completed [facility] of (varivax)(chicken 00:00:00 [place] [facility] pox[facility] 2014-02-23 Completed [facility] of 00:00:00 [facility] Varicella 2014-02-23 Completed [facility] of (varivax)(chicken 00:00:00 [place] [facility] pox[facility] 2014-02-23 Completed [facility] of 00:00:00 [facility] Varicella 2014-02-23 Completed [facility] of (varivax)(chicken 00:00:00 [place] [facility] pox[facility] 2014-02-23 Completed [facility] of 00:00:00 [facility] Varicella 2014-02-23 Completed [facility] of (varivax)(chicken 00:00:00 [place] [facility] pox) [facility] MMR 2014-02-23 Completed [facility] of 00:00:00 [facility] Varicella 2014-02-23 Completed [facility] of (varivax)(chicken 00:00:00 [place] [facility] pox) [facility] MMR 2014-02-23 Completed [facility] of 00:00:00 [facility] Varicella 2014-02-23 Completed [facility] of (varivax)(chicken 00:00:00 [place] [facility] pox[facility] 2014-02-23 Completed [facility] of 00:00:00 [facility] Varicella 2014-02-23 Completed [facility] of (varivax)(chicken 00:00:00 [place] [facility] pox[facility] 2014-02-23 Completed [facility] of 00:00:00 [facility] Varicella 2014-02-23 Completed [facility] of (varivax)(chicken 00:00:00 [place] [facility] pox) [facility] MMR 2014-02-23 Completed [facility] of 00:00:00 [facility] Varicella 2014-02-23 Completed [facility] of (varivax)(chicken 00:00:00 [place] [facility] pox) [facility] MMR 2014-02-23 Completed [facility] of 00:00:00 [facility] Varicella 2014-02-23 Completed [facility] of (varivax)(chicken 00:00:00 [place] [facility] pox) [facility] MMR 2014-02-23 Completed [facility] of 00:00:00 [facility] Varicella 2014-02-23 Completed [facility] of (varivax)(chicken 00:00:00 [place] [facility] pox) Branch MMR 2014-02-23 Completed [facility] of 00:00:00 [facility] Varicella 2014-02-23 Completed University of (varivax)(chicken 00:00:00 [place] [facility] pox[facility] 2014-02-23 Completed University of 00:00:00 [facility] Varicella 2014-02-23 Completed [facility] of (varivax)(chicken 00:00:00 [place] [facility] pox) [facility] MMR 2014-02-23 Completed [facility] of 00:00:00 [facility] Varicella 2014-02-23 Completed [facility] of (varivax)(chicken 00:00:00 [place] [facility] pox[facility] 2014-02-23 Completed [facility] of 00:00:00 [facility] Varicella 2014-02-23 Completed [facility] of (varivax)(chicken 00:00:00 [place] [facility] pox) [facility] MMR 2014-02-23 Completed [facility] of 00:00:00 [facility] Varicella 2014-02-23 Completed [facility] of (varivax)(chicken 00:00:00 [place] [facility] pox) [facility] MMR 2014-02-23 Completed [facility] of 00:00:00 [facility] Varicella 2014-02-23 Completed [facility] of (varivax)(chicken 00:00:00 [place] [facility] pox) [facility] MMR 2014-02-23 Completed [facility] of 00:00:00 [facility] Varicella 2014-02-23 Completed [facility] of (varivax)(chicken 00:00:00 [place] [facility] pox) [facility] MMR 2014-02-23 Completed [facility] of 00:00:00 [facility] Varicella 2014-02-23 Completed [facility] of (varivax)(chicken 00:00:00 [place] [facility] pox) [facility] MMR 2014-02-23 Completed [facility] of 00:00:00 [facility] Varicella 2014-02-23 Completed [facility] of (varivax)(chicken 00:00:00 [place] [facility] pox) [facility] MMR 2014-02-23 Completed [facility] of 00:00:00 [facility] Varicella 2014-02-23 Completed [facility] of (varivax)(chicken 00:00:00 [place] [facility] pox) [facility] MMR 2014-02-23 Completed [facility] of 00:00:00 [facility] Varicella 2014-02-23 Completed [facility] of (varivax)(chicken 00:00:00 [place] [facility] pox) [facility] MMR 2014-02-23 Completed [facility] of 00:00:00 [facility] Varicella 2014-02-23 Completed [facility] of (varivax)(chicken 00:00:00 [place] [facility] pox) [facility] MMR 2014-02-23 Completed [facility] of 00:00:00 [facility] Varicella 2014-02-23 Completed [facility] of (varivax)(chicken 00:00:00 [place] [facility] pox[facility] 2014-02-23 Completed [facility] of 00:00:00 [facility] Varicella 2014-02-23 Completed [facility] of (varivax)(chicken 00:00:00 [place] [facility] pox) [facility] MMR 2014-02-23 Completed [facility] of 00:00:00 [facility] Varicella 2014-02-23 Completed [facility] of (varivax)(chicken 00:00:00 [place] [facility] pox) [facility] MMR 2014-02-23 Completed [facility] of 00:00:00 [facility] Varicella 2014-02-23 Completed [facility] of (varivax)(chicken 00:00:00 [place] [facility] pox) [facility] MMR 2014-02-23 Completed [facility] 00:00:00 [facility] Varicella 2014-02-23 Completed [facility] of (varivax)(chicken 00:00:00 [place] [facility] pox) [facility] MMR 2014-02-23 Completed [facility] of 00:00:00 [facility] Varicella 2014-02-23 Completed [facility] of (varivax)(chicken 00:00:00 [place] [facility] pox) [facility] MMR 2014-02-23 Completed [facility] of 00:00:00 [facility] Varicella 2014-02-23 Completed University of (varivax)(chicken 00:00:00 [facility] edical pox) [place] Influenza Virus 2013-12-23 Completed Universit y of Vaccine (3+ yrs) 00:00:00 [facility] TDAP 2013-12-23 Completed University of 00:00:00 [facility] Influenza Virus 2013-12-23 Completed Universit y of Vaccine (3+ yrs) 00:00:00 [facility] TDAP 2013-12-23 Completed University of 00:00:00 [facility] Influenza Virus 2013-12-23 Completed Universit y of Vaccine (3+ yrs) 00:00:00 [facility] TDAP 2013-12-23 Completed [facility] of 00:00:00 [facility] Influenza Virus 2013-12-23 Completed [facility]00 [facility] Influenza Virus 2013-12-23 Completed Universit y of Vaccine (3+ yrs) 00:00:00 [facility] TDAP 2013-12-23 Completed University of 00:00:00 [facility] Influenza Virus 2013-12-23 Completed Universit y of Vaccine (3+ yrs) 00:00:00 [facility] TDAP 2013-12-23 Completed [facility] of 00:00:00 [facility] Influenza Virus 2013-12-23 Completed [facility]:00 [facility] Influenza Virus 2013-12-23 Completed Universit y of Vaccine (3+ yrs) 00:00:00 [facility] TDAP 2013-12-23 Completed University of 00:00:00 [facility] Influenza Virus 2013-12-23 Completed Universit y of Vaccine (3+ yrs) 00:00:00 [facility] TDAP 2013-12-23 Completed University of 00:00:00 [facility] Influenza Virus 2013-12-23 Completed [facility] Vaccine (3+ yrs) 00:00:00 [facility] TDAP 2013-12-23 Completed [facility] 00:00:00 [facility] Influenza Virus 2013-12-23 Completed [facility] Vaccine (3+ yrs) 00:00:00 [facility] TDAP 2013-12-23 Completed [facility] 00:00:00 [facility] Influenza Virus 2013-12-23 Completed [facility] Vaccine (3+ yrs) 00:00:00 [facility] TDAP 2013-12-23 Completed [facility] 00:00:00 [facility] Influenza Virus 2013-12-23 Completed [facility] Vaccine (3+ yrs) 00:00:00 [facility] TDAP 2013-12-23 Completed [facility] 00:00:00 [facility] Influenza Virus 2013-12-23 Completed [facility] Vaccine (3+ yrs) 00:00:00 [facility] TDAP 2013-12-23 Completed [facility] 00:00:00 [facility] Influenza Virus 2013-12-23 Completed [facility] Vaccine (3+ yrs) 00:00:00 [facility] TDAP 2013-12-23 Completed [facility] 00:00:00 [facility] Influenza Virus 2013-12-23 Completed [facility] Vaccine (3+ yrs) 00:00:00 [facility] TDAP 2013-12-23 Completed [facility] 00:00:00 [facility] Influenza Virus 2013-12-23 Completed [facility] Vaccine (3+ yrs) 00:00:00 [facility] TDAP 2013-12-23 Completed [facility] 00:00:00 [facility] Influenza Virus 2013-12-23 Completed [facility] Vaccine (3+ yrs) 00:00:00 [facility] TDAP 2013-12-23 Completed [facility] 00:00:00 [facility] Influenza Virus 2013-12-23 Completed [facility] Vaccine (3+ yrs) 00:00:00 [facility] Influenza Virus 2013-12-23 Completed [facility] Vaccine (3+ yrs) 00:00:00 [facility] TDAP 2013-12-23 Completed [facility] 00:00:00 [facility] Tdap 2013-12-23 Completed [facility] 00:00:00 [facility] Influenza Virus 2013-12-23 Completed [facility] Vaccine (3+ yrs) 00:00:00 [facility] TDAP 2013-12-23 Completed [facility] 00:00:00 [facility] Influenza Virus 2013-12-23 Completed [facility] Vaccine (3+ yrs) 00:00:00 [facility] TDAP 2013-12-23 Completed [facility] 00:00:00 [facility] Influenza Virus 2013-12-23 Completed [facility] Vaccine (3+ yrs) 00:00:00 [facility] TDAP 2013-12-23 Completed [facility] 00:00:00 [facility] Influenza Virus 2013-12-23 Completed [facility] Vaccine (3+ yrs) 00:00:00 [facility] TDAP 2013-12-23 Completed [facility] 00:00:00 [facility] Influenza Virus 2013-12-23 Completed [facility] Vaccine (3+ yrs) 00:00:00 [facility] TDAP 2013-12-23 Completed [facility] 00:00:00 [facility] Influenza Virus 2013-12-23 Completed [facility] Vaccine (3+ yrs) 00:00:00 [facility] TDAP 2013-12-23 Completed [facility] 00:00:00 [facility] Influenza Virus 2013-12-23 Completed [facility] Vaccine (3+ yrs) 00:00:00 [facility] TDAP 2013-12-23 Completed [facility] 00:00:00 [facility] Influenza Virus 2013-12-23 Completed [facility] Vaccine (3+ yrs) 00:00:00 [facility] TDAP 2013-12-23 Completed [facility] 00:00:00 [facility] Influenza Virus 2013-12-23 Completed [facility] Vaccine (3+ yrs) 00:00:00 [facility] TDAP 2013-12-23 Completed [facility] 00:00:00 [facility] Influenza Virus 2013-12-23 Completed [facility] Vaccine (3+ yrs) 00:00:00 [facility] TDAP 2013-12-23 Completed [facility] 00:00:00 [facility] Influenza Virus 2013-12-23 Completed [facility] Vaccine (3+ yrs) 00:00:00 [facility] Tdap 2013-12-23 Completed [facility] 00:00:00 [facility] Influenza Virus 2013-12-23 Completed [facility] Vaccine (3+ yrs) 00:00:00 [facility] TDAP 2013-12-23 Completed [facility] 00:00:00 [facility] Influenza Virus 2013-12-23 Completed [facility] Vaccine (3+ yrs) 00:00:00 [facility] TDAP 2013-12-23 Completed [facility] 00:00:00 [facility] Influenza Virus 2013-12-23 Completed [facility] Vaccine (3+ yrs) 00:00:00 [facility] TDAP 2013-12-23 Completed [facility] 00:00:00 [facility] Influenza Virus 2013-12-23 Completed [facility] Vaccine (3+ yrs) 00:00:00 [facility] TDAP 2013-12-23 Completed [facility] 00:00:00 [facility] Influenza Virus 2013-12-23 Completed [facility] Vaccine (3+ yrs) 00:00:00 [facility] TDAP 2013-12-23 Completed [facility] 00:00:00 [facility] Influenza Virus 2013-12-23 Completed [facility] Vaccine (3+ yrs) 00:00:00 [facility] Tdap 2013-12-23 Completed [facility] 00:00:00 [facility] Influenza Virus 2013-12-23 Completed [facility] Vaccine (3+ yrs) 00:00:00 [facility] Tdap 2013-12-23 Completed [facility] 00:00:00 [facility] Influenza Virus 2013-12-23 Completed [facility] Vaccine (3+ yrs) 00:00:00 [facility] Tdap 2013-12-23 Completed [facility] 00:00:00 [facility] Influenza Virus 2013-12-23 Completed [facility] Vaccine (3+ yrs) 00:00:00 [facility] Tdap 2013-12-23 Completed [facility] 00:00:00 [facility] Influenza Virus 2013-12-23 Completed [facility] Vaccine (3+ yrs) 00:00:00 [facility] Tdap 2013-12-23 Completed [facility] 00:00:00 [facility] Influenza Virus 2013-12-23 Completed [facility] Vaccine (3+ yrs) 00:00:00 [facility] Tdap 2013-12-23 Completed [facility] 00:00:00 [facility] Influenza Virus 2013-12-23 Completed [facility] Vaccine (3+ yrs) 00:00:00 [facility] Tdap 2013-12-23 Completed [facility] 00:00:00 [facility] Influenza Virus 2013-12-23 Completed [facility] Vaccine (3+ yrs) 00:00:00 [facility] Tdap 2013-12-23 Completed [facility] 00:00:00 [facility] Influenza Virus 2013-12-23 Completed [facility] Vaccine (3+ yrs) 00:00:00 [facility] Tdap 2013-12-23 Completed [facility] 00:00:00 [facility] Influenza Virus 2013-12-23 Completed [facility] Vaccine (3+ yrs) 00:00:00 [facility] Tdap 2013-12-23 Completed [facility] 00:00:00 [facility] Influenza Virus 2013-12-23 Completed [facility] Vaccine (3+ yrs) 00:00:00 [facility] Tdap 2013-12-23 Completed [facility] 00:00:00 [facility] Influenza Virus 2013-12-23 Completed [facility] Vaccine (3+ yrs) 00:00:00 [facility] TDAP 2013-12-23 Completed [facility] 00:00:00 [facility] Influenza Virus 2013-12-23 Completed [facility] Vaccine (3+ yrs) 00:00:00 [facility] Tdap 2013-12-23 Completed [facility] 00:00:00 [facility] Influenza Virus 2013-12-23 Completed [facility] Vaccine (3+ yrs) 00:00:00 [facility] TDAP 2013-12-23 Completed [facility] 00:00:00 [facility] Influenza Virus 2013-12-23 Completed [facility] Vaccine (3+ yrs) 00:00:00 [facility] TDAP 2013-12-23 Completed [facility] 00:00:00 [facility] Influenza Virus 2013-12-23 Completed [facility] Vaccine (3+ yrs) 00:00:00 [facility] TDAP 2013-12-23 Completed [facility] 00:00:00 [facility] Influenza Virus 2013-12-23 Completed [facility] Vaccine (3+ yrs) 00:00:00 [facility] TDAP 2013-12-23 Completed [facility] 00:00:00 [facility] Influenza Virus 2013-12-23 Completed [facility] Vaccine (3+ yrs) 00:00:00 [facility] TDAP 2013-12-23 Completed [facility] 00:00:00 [facility] Influenza Virus 2013-12-23 Completed [facility] Vaccine (3+ yrs) 00:00:00 [facility] TDAP 2013-12-23 Completed [facility] 00:00:00 [facility] Influenza Virus 2013-12-23 Completed [facility] Vaccine (3+ yrs) 00:00:00 [facility] TDAP 2013-12-23 Completed [facility] 00:00:00 [facility] Influenza Virus 2013-12-23 Completed [facility] Vaccine (3+ yrs) 00:00:00 [facility] TDAP 2013-12-23 Completed [facility] 00:00:00 [facility] Influenza Virus 2013-12-23 Completed [facility] Vaccine (3+ yrs) 00:00:00 [facility] TDAP 2013-12-23 Completed [facility] 00:00:00 [facility] Influenza Virus 2013-12-23 Completed [facility] Vaccine (3+ yrs) 00:00:00 [facility] TDAP 2013-12-23 Completed [facility] 00:00:00 [facility] Influenza Virus 2013-12-23 Completed [facility] Vaccine (3+ yrs) 00:00:00 [facility] TDAP 2013-12-23 Completed [facility] 00:00:00 [facility] Influenza Virus 2013-12-23 Completed [facility] Vaccine (3+ yrs) 00:00:00 [facility] TDAP 2013-12-23 Completed [facility] 00:00:00 [facility] Influenza Virus 2013-12-23 Completed [facility] Vaccine (3+ yrs) 00:00:00 [facility] TDAP 2013-12-23 Completed [facility] 00:00:00 [facility] Influenza Virus 2013-12-23 Completed [facility] Vaccine (3+ yrs) 00:00:00 [facility] Influenza Virus 2013-12-23 Completed [facility] Vaccine (3+ yrs) 00:00:00 [facility] Tdap 2013-12-23 Completed [facility] 00:00:00 [facility] TDAP 2013-12-23 Completed [facility] 00:00:00 [facility] Influenza Virus 2013-12-23 Completed [facility] Vaccine (3+ yrs) 00:00:00 [facility] TDAP 2013-12-23 Completed [facility] 00:00:00 [facility] Influenza Virus 2013-12-23 Completed [facility] Vaccine (3+ yrs) 00:00:00 [facility] TDAP 2013-12-23 Completed [facility] 00:00:00 [facility] PPD (TB) 2013-08-20 Completed [facility] 00:00:00 [facility] PPD (TB) 2013-08-20 Completed [facility] 00:00:00 [facility] PPD (TB) 2013-08-20 Completed [facility] 00:00:00 [facility] PPD (TB) 2013-08-20 Completed [facility] 00:00:00 [facility] PPD (TB) 2013-08-20 Completed [facility] 00:00:00 [facility] PPD (TB) 2013-08-20 Completed [facility] 00:00:00 [facility] PPD (TB) 2013-08-20 Completed [facility] 00:00:00 [facility] PPD (TB) 2013-08-20 Completed [facility] 00:00:00 [facility] PPD (TB) 2013-08-20 Completed [facility] 00:00:00 [facility] PPD (TB) 2013-08-20 Completed [facility] 00:00:00 [facility] PPD (TB) 2013-08-20 Completed [facility] 00:00:00 [facility] PPD (TB) 2013-08-20 Completed [facility] 00:00:00 [facility] PPD (TB) 2013-08-20 Completed [facility] 00:00:00 [facility] PPD (TB) 2013-08-20 Completed [facility] 00:00:00 [facility] PPD (TB) 2013-08-20 Completed [facility] 00:00:00 [facility] PPD (TB) 2013-08-20 Completed [facility] 00:00:00 [facility] PPD (TB) 2013-08-20 Completed [facility] 00:00:00 [facility] PPD (TB) 2013-08-20 Completed [facility] 00:00:00 [facility] PPD (TB) 2013-08-20 Completed [facility] 00:00:00 [facility] PPD (TB) 2013-08-20 Completed [facility] 00:00:00 [facility] PPD (TB) 2013-08-20 Completed [facility] of 00:00:[address] [facility] PPD (TB) 2013-08-20 Completed [facility] 00:00:00 [facility] PPD (TB) 2013-08-20 Completed [facility] of 00:00:[address] [facility] PPD (TB) 2013-08-20 Completed [facility] of 00:00:[address] [facility] PPD (TB) 2013-08-20 Completed [facility] 00:00:[address] [facility] PPD (TB) 2013-08-20 Completed [facility] 00:00:[address] [facility] PPD (TB) 2013-08-20 Completed [facility] 00:00:[address] [facility] PPD (TB) 2013-08-20 Completed [facility] 00:00:[address] [facility] PPD (TB) 2013-08-20 Completed [facility] 00:00:[address] [facility] PPD (TB) 2013-08-20 Completed [facility] 00:00:[address] [facility] PPD (TB) 2013-08-20 Completed [facility] 00:00:[address] [facility] PPD (TB) 2013-08-20 Completed [facility] 00:00:[address] [facility] PPD (TB) 2013-08-20 Completed [facility] 00:00:[address] [facility] PPD (TB) 2013-08-20 Completed [facility] 00:00:[address] [facility] PPD (TB) 2013-08-20 Completed [facility] 00:00:[address] [facility] PPD (TB) 2013-08-20 Completed [facility] 00:00:[address] [facility] PPD (TB) 2013-08-20 Completed [facility] 00:00:[address] [facility] PPD (TB) 2013-08-20 Completed [facility] 00:00:[address] [facility] PPD (TB) 2013-08-20 Completed [facility] 00:00:[address] [facility] PPD (TB) 2013-08-20 Completed [facility] 00:00:[address] [facility] PPD (TB) 2013-08-20 Completed [facility] 00:00:[address] [facility] PPD (TB) 2013-08-20 Completed [facility] 00:00:[address] [facility] PPD (TB) 2013-08-20 Completed [facility] 00:00:[address] [facility] PPD (TB) 2013-08-20 Completed [facility] 00:00:[address] [facility] PPD (TB) 2013-08-20 Completed [facility] 00:00:[address] [facility] PPD (TB) 2013-08-20 Completed [facility] 00:00:[address] [facility] PPD (TB) 2013-08-20 Completed [facility] 00:00:[address] [facility] PPD (TB) 2013-08-20 Completed [facility] 00:00:[address] [facility] PPD (TB) 2013-08-20 Completed [facility] 00:00:[address] [facility] PPD (TB) 2013-08-20 Completed [facility] 00:00:[address] [facility] PPD (TB) 2013-08-20 Completed [facility] 00:00:[address] [facility] PPD (TB) 2013-08-20 Completed [facility] 00:00:[address] [facility] PPD (TB) 2013-08-20 Completed [facility] 00:00:[address] [facility] PPD (TB) 2013-08-20 Completed [facility] 00:00:[address] [facility] PPD (TB) 2013-08-20 Completed [facility] 00:00:[address] [facility] PPD (TB) 2013-08-20 Completed [facility] 00:00:[address] [facility] PPD (TB) 2013-08-20 Completed [facility] 00:00:[address] [facility] PPD (TB) 2013-08-20 Completed [facility] 00:00:[address] [facility] PPD (TB) 2013-08-20 Completed [facility] 00:00:[address] [facility] PPD (TB) 2013-08-20 Completed [facility] 00:00:[address] [facility] PPD (TB) 2013-08-20 Completed [facility] 00:00:[address] [facility] PPD (TB) 2013-08-20 Completed [facility] 00:00:[address] [facility] PPD (TB) 2013-08-20 Completed [facility] 00:00:[address] [facility] PPD (TB) 2013-08-20 Completed [facility] 00:00:[address] [facility] PPD (TB) 2013-08-20 Completed [facility] 00:00:[address] [facility] PPD (TB) 2013-08-20 Completed [facility] 00:00:[address] [facility] Rubella 2009-08-20 Completed [facility] 00:00:[address] [facility] Rubella 2009-08-20 Completed [facility] 00:00:00 [facility] Rubella 2009-08-20 Completed [facility] 00:00:00 [facility] Rubella 2009-08-20 Completed [facility] 00:00:[address] [facility] Rubella 2009-08-20 Completed [facility] 00:00:[address] [facility] Rubella 2009-08-20 Completed [facility] 00[facility]00:00 [facility] Rubella 2009-08-20 Completed [facility] 00:00:00 [facility] Rubella 2009-08-20 Completed [facility] 00:00:00 [facility] Rubella 2009-08-20 Completed [facility] 00:00:00 [facility] Rubella 2009-08-20 Completed [facility] 00:00:00 [facility] Rubella 2009-08-20 Completed [facility] 00:00:00 [facility] Rubella 2009-08-20 Completed [facility] 00:00:00 [facility] Rubella 2009-08-20 Completed [facility] 00:00:00 [facility] Rubella 2009-08-20 Completed [facility] 00:00:00 [facility] Rubella 2009-08-20 Completed [facility] 00:00:00 [facility] Rubella 2009-08-20 Completed [facility] 00:00:00 [facility] Rubella 2009-08-20 Completed [facility] 00:00:00 [facility] Rubella 2009-08-20 Completed [facility] 00:00:00 [facility] Rubella 2009-08-20 Completed [facility] 00:00:00 [facility] Rubella 2009-08-20 Completed [facility] 00:00:00 [facility] Rubella 2009-08-20 Completed [facility] 00:00:00 [facility] Rubella 2009-08-20 Completed [facility] 00:00:00 [facility] Rubella 2009-08-20 Completed [facility] 00:00:00 [facility] Rubella 2009-08-20 Completed [facility] 00:00:00 [facility] Rubella 2009-08-20 Completed [facility] 00:00:00 [facility] Rubella 2009-08-20 Completed [facility] 00:00:00 [facility] Rubella 2009-08-20 Completed [facility] 00:00:00 [facility] Rubella 2009-08-20 Completed [facility] 00:00:00 [facility] Rubella 2009-08-20 Completed [facility] 00:00:00 [facility] Rubella 2009-08-20 Completed [facility] 00:00:00 [facility] Rubella 2009-08-20 Completed [facility] 00:00:00 [facility] Rubella 2009-08-20 Completed [facility] 00:00:00 [facility] Rubella 2009-08-20 Completed [facility] 00:00:00 [facility] Rubella 2009-08-20 Completed [facility] 00:00:00 [facility] Rubella 2009-08-20 Completed [facility] 00:00:00 [facility] Rubella 2009-08-20 Completed [facility] 00:00:00 [facility] Rubella 2009-08-20 Completed [facility] 00:00:00 [facility] Rubella 2009-08-20 Completed [facility] 00:00:00 [facility] Rubella 2009-08-20 Completed [facility] 00:00:00 [facility] Rubella 2009-08-20 Completed [facility] 00:00:00 [facility] Rubella 2009-08-20 Completed [facility] 00:00:00 [facility] Rubella 2009-08-20 Completed [facility] 00:00:00 [facility] Rubella 2009-08-20 Completed [facility] 00:00:00 [facility] Rubella 2009-08-20 Completed [facility] 00:00:00 [facility] Rubella 2009-08-20 Completed [facility] 00:00:00 [facility] Rubella 2009-08-20 Completed [facility] 00:00:00 [facility] Rubella 2009-08-20 Completed [facility] 00:00:00 [facility] Rubella 2009-08-20 Completed [facility] 00:00:00 [facility] Rubella 2009-08-20 Completed [facility] 00:00:00 [facility] Rubella 2009-08-20 Completed [facility] 00:00:00 [facility] Rubella 2009-08-20 Completed [facility] 00:00:00 [facility] Rubella 2009-08-20 Completed [facility] 00:00:00 [facility] Rubella 2009-08-20 Completed [facility] 00:00:00 [facility] Rubella 2009-08-20 Completed [facility] 00:00:00 [facility] Rubella 2009-08-20 Completed [facility] 00:00:00 [facility] Rubella 2009-08-20 Completed [facility] 00:00:00 [facility] Rubella 2009-08-20 Completed [facility] 00:00:00 [facility] Rubella 2009-08-20 Completed [facility] 00:00:00 [facility] Rubella 2009-08-20 Completed [facility] 00:00:00 [facility] Rubella 2009-08-20 Completed [facility] 00:00:00 [facility] Rubella 2009-08-20 Completed [facility] 00:00:00 [facility] Rubella 2009-08-20 Completed [facility] 00:00:00 [facility] [facility] 2009-08-20 Completed [facility] 00:00:00 [facility] 2009-08-20 Completed [facility] 00:00:00 [facility] Rubella 2009-08-20 Completed [facility] 00:00:00 [facility] Rubella 2009-08-20 Completed [facility] 00:00:00 [facility] Td 2007-10-21 Completed [facility] 00:00:00 [facility] Td 2007-10-21 Completed [facility] 00:00:00 [facility] Td 2007-10-21 Completed [facility] 00[facility]00:00 [facility] Td 2007-10-21 Completed [facility] 00:00:00 [facility] Td 2007-10-21 Completed [facility] 00:00:00 [facility] Td 2007-10-21 Completed [facility] 00:00:00 [facility] Td 2007-10-21 Completed [facility] 00:00:00 [facility] Td 2007-10-21 Completed [facility] 00:00:00 [facility] Td 2007-10-21 Completed [facility] 00:00:00 [facility] Td 2007-10-21 Completed [facility] 00:00:00 [facility] Td 2007-10-21 Completed [facility] 00:00:00 [facility] Td 2007-10-21 Completed [facility] 00[facility]00:00 [facility] Td 2007-10-21 Completed [facility] 00:00:00 [facility] Td 2007-10-21 Completed [facility] 00:00:00 [facility] Td 2007-10-21 Completed [facility] 00:00:00 [facility] Td 2007-10-21 Completed [facility] 00:00:00 [facility] Td 2007-10-21 Completed [facility] 00:00:00 [facility] Td 2007-10-21 Completed [facility] 00:00:00 [facility] Td 2007-10-21 Completed [facility] 00:00:00 [facility] Td 2007-10-21 Completed [facility] 00:00:00 [facility] Td 2007-10-21 Completed [facility] 00:00:00 [facility] Td 2007-10-21 Completed [facility] 00:00:00 [facility] Td 2007-10-21 Completed [facility] 00:00:00 [facility] Td 2007-10-21 Completed [facility] 00:00:00 [facility] Td 2007-10-21 Completed [facility] 00:00:00 [facility] Td 2007-10-21 Completed [facility] 00:00:00 [facility] Td 2007-10-21 Completed [facility] 00:00:00 [facility] Td 2007-10-21 Completed [facility] 00:00:00 [facility] Td 2007-10-21 Completed [facility] 00:00:00 [facility] Td 2007-10-21 Completed [facility] 00:00:00 [facility] Td 2007-10-21 Completed [facility] 00:00:00 [facility] Td 2007-10-21 Completed [facility] 00:00:00 [facility] Td 2007-10-21 Completed [facility] 00:00:00 [facility] Td 2007-10-21 Completed [facility] 00:00:00 [facility] Td 2007-10-21 Completed [facility] 00:00:00 [facility] Td 2007-10-21 Completed [facility] 00:00:00 [facility] Td 2007-10-21 Completed [facility] 00:00:00 [facility] Td 2007-10-21 Completed [facility] 00:00:00 [facility] Td 2007-10-21 Completed [facility] 00:00:00 [facility] Td 2007-10-21 Completed [facility] 00:00:00 [facility] Td 2007-10-21 Completed [facility] 00:00:00 [facility] Td 2007-10-21 Completed [facility] 00:00:00 [facility] Td 2007-10-21 Completed [facility] 00:00:00 [facility] Td 2007-10-21 Completed [facility] 00:00:00 [facility] Td 2007-10-21 Completed [facility] 00:00:00 [facility] Td 2007-10-21 Completed [facility] 00:00:00 [facility] Td 2007-10-21 Completed [facility] 00:00:00 [facility] Td 2007-10-21 Completed [facility] 00:00:00 [facility] Td 2007-10-21 Completed [facility] 00:00:00 [facility] Td 2007-10-21 Completed [facility] 00:00:00 [facility] Td 2007-10-21 Completed [facility] 00:00:00 [facility] Td 2007-10-21 Completed [facility] 00:00:00 [facility] Td 2007-10-21 Completed [facility] 00:00:00 [facility] Td 2007-10-21 Completed [facility] 00:00:00 [facility] Td 2007-10-21 Completed [facility] 00:00:00 [facility] Td 2007-10-21 Completed [facility] 00:00:00 [facility] Td 2007-10-21 Completed [facility] 00:00:00 [facility] Td 2007-10-21 Completed [facility] 00:00:00 [facility] Td 2007-10-21 Completed [facility] 00:00:[address] [facility] Td 2007-10-21 Completed [facility] 00:00:[address] [facility] Td 2007-10-21 Completed [facility] 00:00:[address] [facility] Td 2007-10-21 Completed [facility] 00:00:00 [facility] Td 2007-10-21 Completed [facility] 00:00:[address] [facility] Td 2007-10-21 Completed [facility] 00[facility]00:[address] [facility] Td 2007-10-21 Completed [facility] 00:00:00 [facility] Td 2007-10-21 Completed [facility] 00:00:00 [facility] TD, NOS Unknown Completed [facility] Rubella Unknown Completed [facility] PPD (TB) Unknown Completed [facility] Influenza Virus Unknown Completed [facility]3+ yrs[facility] Completed [facility] MMR [facility] Completed [facility] Varicella Unknown Completed [facility] (varivax)(chicken [place] [facility] TDAP Unknown Completed [facility] TD, NOS Unknown Completed [facility] Rubella Unknown Completed [facility] PPD (TB) Unknown Completed [facility] Influenza Virus Unknown Completed [facility]it [facility] of Vaccine (3+ yrs) [facility] TDAP Unknown Completed [facility] MMR Unknown Completed [facility] Varicella Unknown Completed [facility] (varivax)(chicken [place] [facility] TDAP Unknown Completed [facility] TDAP Unknown Completed [facility] TD, NOS Unknown Completed [facility] Rubella Unknown Completed [facility] PPD (TB) Unknown Completed [facility] Influenza Virus Unknown Completed [facility]it [facility] of Vaccine (3+ yrs) [facility] dical [place] TDAP Unknown Completed [facility] MMR Unknown Completed [facility] Varicella Unknown Completed [facility] (varivax[facility]chicken [place] [facility] TDAP Unknown Completed [facility] TDAP Unknown Completed [facility] Vital Signs Vital Name Observation Time Observation Value Comments Source Systolic blood 2022-12-25 17:11:00 99 mm[Hg] Univer sity of pressure [facility] Diastolic blood 2022-12-25 17:11:00 64 mm[Hg] Unive rsity of pressure [facility] Heart rate 2022-12-25 17:10:00 91 /min [facility]i ty [facility] Body temperature 2022-12-25 17:10:00 36.67 Nory [facility] ers[facility] Respiratory rate 2022-12-25 17:10:00 16 /min Univ ersity of [facility] Body weight 2022-12-25 17:10:00 103.647 kg [facility] ty [facility] BMI 2022-12-25 17:10:00 35.79 kg/m2 [facility] Oxygen saturation in 2022-12-25 17:10:00 96 /min [facility] of Arterial blood by [facility] luly Pulse oximetry Branch Systolic blood 2020-02-17 13:37:00 119 mm[Hg] Univer sity of pressure [facility] Diastolic blood 2020-02-17 13:37:00 67 mm[Hg] Unive rsity of pressure [facility] Heart rate 2020-02-17 13:37:00 87 /min [facility] ty [facility] Body temperature 2020-02-17 13:37:00 36.33 Nory [facility] Respiratory rate 2020-02-17 13:37:00 20 /min Univ ersity of [facility] Oxygen saturation in 2020-02-17 13:37:00 95 /min [facility] of Arterial blood by [facility] Pulse oximetry Branch Body height 2020-02-14 14:57:00 170.2 cm [facility] Body weight 2020-02-14 14:57:00 124.104 kg [facility] BMI 2020-02-14 14:57:00 42.85 kg/m2 [facility] Systolic blood 2020-02-17 13:37:00 119 mm[Hg] Univer sity of pressure [facility] Diastolic blood 2020-02-17 13:37:00 67 mm[Hg] Unive rsity of pressure [facility] Heart rate 2020-02-17 13:37:00 87 /min [facility] Body temperature 2020-02-17 13:37:00 36.33 Nory Univ ers[facility] of [facility] Respiratory rate 2020-02-17 13:37:00 20 /min Univ ersity of [facility] Oxygen saturation in 2020-02-17 13:37:00 95 /min [facility] of Arterial blood by [facility] Pulse oximetry Branch Body height 2020-02-14 14:57:00 170.2 cm Universi ty of [facility] Body weight 2020-02-14 14:57:00 124.104 kg Universi ty of [facility] BMI 2020-02-14 14:57:00 42.85 kg/m2 [facility] of [facility] Systolic blood 2020-02-10 14:02:00 121 mm[Hg] Univer sity of pressure [facility] Diastolic blood 2020-02-10 14:02:00 71 mm[Hg] Unive rsity of pressure [facility] Heart rate 2020-02-10 14:02:00 91 /min [facility]i ty of [facility] Body temperature 2020-02-10 14:02:00 36.44 Nory Univ ersity of [facility] Respiratory rate 2020-02-10 14:02:00 16 /min Univ ersity of [facility] Body height 2020-02-10 14:02:00 170.2 cm [facility]i ty of [facility] Body weight 2020-02-10 14:02:00 124.104 kg [facility] [place] [facility] [place] BMI 2020-02-10 14:02:00 42.85 kg/m2 Universi ty of [facility] Systolic blood 2020-02-10 14:02:00 121 mm[Hg] Univer sity of pressure [facility] Diastolic blood 2020-02-10 14:02:00 71 mm[Hg] Unive rsity of pressure [facility] Heart rate 2020-02-10 14:02:00 91 /min [facility]i ty of [facility] Body temperature 2020-02-10 14:02:00 36.44 Nory Univ ers[facility] of [facility] Respiratory rate 2020-02-10 14:02:00 16 /min Univ ersity of [facility] Body height 2020-02-10 14:02:00 170.2 cm [facility]i ty of [facility] Body weight 2020-02-10 14:02:00 124.104 kg Universi ty of [facility] BMI 2020-02-10 14:02:00 42.85 kg/m2 [facility] Systolic blood 2020-02-05 14:57:00 107 mm[Hg] Univer sity of pressure [facility] Diastolic blood 2020-02-05 14:57:00 69 mm[Hg] Unive rsity of pressure [facility] Heart rate 2020-02-05 14:57:00 81 /min [facility] Body temperature 2020-02-05 14:57:00 36.33 Nory [facility] Respiratory rate 2020-02-05 14:57:00 16 /min Univ ersity of [facility] Body height 2020-02-05 14:57:00 170.2 cm [facility] Body weight 2020-02-05 14:57:00 122.046 kg [facility] BMI 2020-02-05 14:57:00 42.14 kg/m2 [facility] Systolic blood 2020-02-05 14:57:00 107 mm[Hg] Univer sity of pressure [facility] Diastolic blood 2020-02-05 14:57:00 69 mm[Hg] Unive rsity of pressure [facility] Heart rate 2020-02-05 14:57:00 81 /min [facility] Body temperature 2020-02-05 14:57:00 36.33 Nory [facility] Respiratory rate 2020-02-05 14:57:00 16 /min Univ ersity of [facility] Body height 2020-02-05 14:57:00 170.2 cm [facility] Body weight 2020-02-05 14:57:00 122.046 kg [facility] BMI 2020-02-05 14:57:00 42.14 kg/m2 [facility] Systolic blood 2020-02-03 14:55:00 133 mm[Hg] Univer sity of pressure [facility] Diastolic blood 2020-02-03 14:55:00 74 mm[Hg] Unive rsity of pressure [facility] Heart rate 2020-02-03 14:55:00 92 /min [facility] Body temperature 2020-02-03 14:54:00 36.78 Nory [facility] Respiratory rate 2020-02-03 14:54:00 16 /min Univ ersity of [facility] Body height 2020-02-03 14:54:00 170.2 cm [facility] Body weight 2020-02-03 14:54:00 121.564 kg [facility] BMI 2020-02-03 14:54:00 41.97 kg/m2 [facility] Systolic blood 2020-02-03 14:55:00 133 mm[Hg] Univer sity of pressure [facility] Diastolic blood 2020-02-03 14:55:00 74 mm[Hg] Unive rsity of pressure [facility] Heart rate 2020-02-03 14:55:00 92 /min [facility] Body temperature 2020-02-03 14:54:00 36.78 Nory [facility] Respiratory rate 2020-02-03 14:54:00 16 /min Univ ersity of [facility] Body height 2020-02-03 14:54:00 170.2 cm [facility] Body weight 2020-02-03 14:54:00 121.564 kg [facility] BMI 2020-02-03 14:54:00 41.97 kg/m2 [facility] Systolic blood 2020-01-30 15:26:00 124 mm[Hg] Univer sity of pressure [facility] Diastolic blood 2020-01-30 15:26:00 69 mm[Hg] Unive rsity of pressure [facility] Heart rate 2020-01-30 15:26:00 91 /min [facility] Body temperature 2020-01-30 15:26:00 36.17 Nory [facility] Respiratory rate 2020-01-30 15:26:00 16 /min Univ ersity of [facility] Body height 2020-01-30 15:26:00 170.2 cm [facility] Body weight 2020-01-30 15:26:00 121.337 kg [facility] BMI 2020-01-30 15:26:00 41.90 kg/m2 [facility] Systolic blood 2020-01-30 15:26:00 124 mm[Hg] Univer sity of pressure [facility] Diastolic blood 2020-01-30 15:26:00 69 mm[Hg] Unive rsity of pressure [facility] Heart rate 2020-01-30 15:26:00 91 /min [facility] Body temperature 2020-01-30 15:26:00 36.17 Nory [facility] Respiratory rate 2020-01-30 15:26:00 16 /min Univ ersity of [facility] Body height 2020-01-30 15:26:00 170.2 cm [facility] Body weight 2020-01-30 15:26:00 121.337 kg [facility] BMI 2020-01-30 15:26:00 41.90 kg/m2 [facility] Systolic blood 2020-01-27 14:56:00 114 mm[Hg] Univer sity of pressure [facility] Diastolic blood 2020-01-27 14:56:00 60 mm[Hg] Unive rsity of pressure [facility] Heart rate 2020-01-27 14:56:00 96 /min [facility] Body temperature 2020-01-27 14:56:00 36.11 Nory [facility] Respiratory rate 2020-01-27 14:56:00 16 /min Univ ersity of [facility] Body height 2020-01-27 14:56:00 170.2 cm [facility] Body weight 2020-01-27 14:56:00 120.912 kg [facility] BMI 2020-01-27 14:56:00 41.75 kg/m2 [facility] Systolic blood 2020-01-27 14:56:00 114 mm[Hg] Univer sity of pressure [facility] Diastolic blood 2020-01-27 14:56:00 60 mm[Hg] Unive rsity of pressure [facility] Heart rate 2020-01-27 14:56:00 96 /min [facility] Body temperature 2020-01-27 14:56:00 36.11 Nory [facility] Respiratory rate 2020-01-27 14:56:00 16 /min Univ ersity of [facility] Body height 2020-01-27 14:56:00 170.2 cm [facility] Body weight 2020-01-27 14:56:00 120.912 kg [facility] BMI 2020-01-27 14:56:00 41.75 kg/m2 [facility] Systolic blood 2020-01-23 14:34:00 128 mm[Hg] Univer sity of pressure [facility] Diastolic blood 2020-01-23 14:34:00 69 mm[Hg] Unive rsity of pressure [facility] Heart rate 2020-01-23 14:34:00 96 /min [facility] Body temperature 2020-01-23 14:34:00 36.28 Nory [facility] Respiratory rate 2020-01-23 14:34:00 16 /min Univ ersity of [facility] Body height 2020-01-23 14:34:00 170.2 cm [facility] Body weight 2020-01-23 14:34:00 120.657 kg [facility] BMI 2020-01-23 14:34:00 41.66 kg/m2 [facility] Systolic blood 2020-01-23 14:34:00 128 mm[Hg] Univer sity of pressure [facility] Diastolic blood 2020-01-23 14:34:00 69 mm[Hg] Unive rsity of pressure [facility] Heart rate 2020-01-23 14:34:00 96 /min [facility] Body temperature 2020-01-23 14:34:00 36.28 Nory [facility] Respiratory rate 2020-01-23 14:34:00 16 /min Univ ersity [facility] Body height 2020-01-23 14:34:00 170.2 cm [facility] Body weight 2020-01-23 14:34:00 120.657 kg [facility] BMI 2020-01-23 14:34:00 41.66 kg/m2 [facility] Systolic blood 2020-01-09 15:52:00 101 mm[Hg] Univer sity of pressure [facility] Diastolic blood 2020-01-09 15:52:00 67 mm[Hg] Unive rsity of pressure [facility] Heart rate 2020-01-09 15:52:00 84 /min [facility] Body temperature 2020-01-09 15:52:00 36.61 Nory [facility] Respiratory rate 2020-01-09 15:52:00 16 /min [facility] Body height 2020-01-09 15:52:00 170.2 cm [facility] Body weight 2020-01-09 15:52:00 118.956 kg [facility] BMI 2020-01-09 15:52:00 41.07 kg/m2 [facility] Systolic blood 2020-01-09 15:52:00 101 mm[Hg] Univer sity of pressure [facility] Diastolic blood 2020-01-09 15:52:00 67 mm[Hg] Unive rsity of pressure [facility] Heart rate 2020-01-09 15:52:00 84 /min [facility] Body temperature 2020-01-09 15:52:00 36.61 Nory [facility] Respiratory rate 2020-01-09 15:52:00 16 /min [facility]ity [facility] Body height 2020-01-09 15:52:00 170.2 cm [facility] Body weight 2020-01-09 15:52:00 118.956 kg [facility] BMI 2020-01-09 15:52:00 41.07 kg/m2 [facility] Systolic blood 2020-01-06 13:21:00 118 mm[Hg] Univer sity of pressure [facility] Diastolic blood 2020-01-06 13:21:00 67 mm[Hg] Unive rsity of pressure [facility] Heart rate 2020-01-06 13:21:00 98 /min [facility] Body temperature 2020-01-06 13:21:00 36.83 Nory [facility] Respiratory rate 2020-01-06 13:21:00 16 /min [facility] Body height 2020-01-06 13:21:00 170.2 cm [facility] Body weight 2020-01-06 13:21:00 118.842 kg [facility] BMI 2020-01-06 13:21:00 41.04 kg/m2 [facility] Systolic blood 2020-01-02 13:14:00 129 mm[Hg] Univer sity of pressure [facility] Diastolic blood 2020-01-02 13:14:00 63 mm[Hg] Unive rsity of pressure [facility] Heart rate 2020-01-02 13:14:00 101 /min [facility] Body temperature 2020-01-02 13:14:00 36.28 Nory [facility] Respiratory rate 2020-01-02 13:14:00 16 /min [facility] Body height 2020-01-02 13:14:00 170.2 cm [facility] Body weight 2020-01-02 13:14:00 117.17 kg [facility] BMI 2020-01-02 13:14:00 40.46 kg/m2 [facility] Systolic blood 2019-12-25 13:11:00 115 mm[Hg] Univer sity of pressure [facility] Diastolic blood 2019-12-25 13:11:00 67 mm[Hg] Unive rsity of pressure [facility] Heart rate 2019-12-25 13:11:00 88 /min [facility] Body temperature 2019-12-25 13:11:00 36.5 Nory [facility] Respiratory rate 2019-12-25 13:11:00 16 /min [facility] Body height 2019-12-25 13:11:00 170.2 cm [facility] Body weight 2019-12-25 13:11:00 115.327 kg [facility] BMI 2019-12-25 13:11:00 39.82 kg/m2 [facility] Systolic blood 2019-12-18 13:44:00 118 mm[Hg] Univer sity of pressure [facility] Diastolic blood 2019-12-18 13:44:00 67 mm[Hg] Unive rsity of pressure [facility] Heart rate 2019-12-18 13:44:00 88 /min [facility] Body temperature 2019-12-18 13:44:00 36.61 Nory [facility] Respiratory rate 2019-12-18 13:44:00 16 /min [facility] Body height 2019-12-18 13:44:00 170.2 cm [facility] ty of [facility] Body weight 2019-12-18 13:44:00 114.987 kg [facility] BMI 2019-12-18 13:44:00 39.70 kg/m2 [facility]i ty of [facility] Systolic blood 2019-12-11 13:10:00 122 mm[Hg] Univer sity of pressure [facility] Diastolic blood 2019-12-11 13:10:00 72 mm[Hg] Unive rsity of pressure [facility] Heart rate 2019-12-11 13:10:00 93 /min [facility] ty of [facility] Body temperature 2019-12-11 13:10:00 36.11 Nory [facility] of [facility] Respiratory rate 2019-12-11 13:10:00 16 /min Univ ersity of [facility] Body height 2019-12-11 13:10:00 170.2 cm [facility] of [facility] Body weight 2019-12-11 13:10:00 114.817 kg [facility] of [facility] BMI 2019-12-11 13:10:00 39.64 kg/m2 [facility] of [facility] Systolic blood 2019-11-23 17:30:00 112 mm[Hg] Univer sity of pressure [facility] Diastolic blood 2019-11-23 17:30:00 68 mm[Hg] Unive rsity of pressure [facility] Heart rate 2019-11-23 17:30:00 90 /min [facility] ty of [facility] Respiratory rate 2019-11-23 17:30:00 18 /min Univ ersity of [facility] Oxygen saturation in 2019-11-23 17:30:00 98 /min [facility]ial blood by [facility] Pulse oximetry Branch Body temperature 2019-11-23 14:53:00 37 Nory [facility] of [facility] Body weight 2019-11-23 14:53:00 104.781 kg [facility] ty of [facility] BMI 2019-11-23 14:53:00 36.18 kg/m2 [facility] Systolic blood 2019-10-14 15:15:00 120 mm[Hg] Univer sity of pressure [facility] Diastolic blood 2019-10-14 15:15:00 65 mm[Hg] Unive rsity of pressure [facility] Heart rate 2019-10-14 15:15:00 73 /min [facility] Body temperature 2019-10-14 15:15:00 36.61 Nory [facility] Respiratory rate 2019-10-14 15:15:00 16 /min [facility] Body height 2019-10-14 15:15:00 170.2 cm [facility] Body weight 2019-10-14 15:15:00 104.979 kg [facility] BMI 2019-10-14 15:15:00 36.25 kg/m2 [facility] Systolic blood 2018-10-19 19:00:00 137 mm[Hg] [facility] Diastolic blood 2018-10-19 19:00:00 87 mm[Hg] [facility] Heart rate 2018-10-19 19:00:00 80 /min [facility] Body temperature 2018-10-19 19:00:00 36.44 Nory [facility] Respiratory rate 2018-10-19 19:00:00 16 /min [facility] Body height 2018-10-19 19:00:00 170.2 cm [facility] Body weight 2018-10-19 19:00:00 111.812 kg [facility] BMI 2018-10-19 19:00:00 38.61 kg/m2 [facility] Systolic blood 2018-10-17 16:50:00 131 mm[Hg] [facility] Diastolic blood 2018-10-17 16:50:00 87 mm[Hg] [facility] Heart rate 2018-10-17 16:49:00 74 /min [facility] Body temperature 2018-10-17 16:49:00 36.56 Nory [facility] Respiratory rate 2018-10-17 16:49:00 16 /min [facility] Body height 2018-10-17 16:49:00 170.2 cm [facility] Body weight 2018-10-17 16:49:00 114.533 kg [facility] BMI 2018-10-17 16:49:00 39.55 kg/m2 [facility] Systolic blood 2018-10-14 13:00:00 124 mm[Hg] [facility] [place] [facility] Diastolic blood 2018-10-14 13:00:00 68 mm[Hg] [facility] Heart rate 2018-10-14 13:00:00 84 /min [facility] [place] [facility] [place] Body temperature 2018-10-14 13:00:00 36.72 Nory [facility] Respiratory rate 2018-10-14 13:00:00 18 /min [facility] Oxygen saturation in 2018-10-14 13:00:00 100 /min University Arterial blood by [facility] Pulse oximetry [place] Body height 2018-10-12 01:26:00 170.2 cm [facility] [place] [facility] [place] Body weight 2018-10-12 01:26:00 119.205 kg [facility] [place] [facility] [place] BMI 2018-10-12 01:26:00 41.16 kg/m2 [facility] Systolic blood 2018-10-11 15:48:00 135 mm[Hg] [facility] Diastolic blood 2018-10-11 15:48:00 70 mm[Hg] [facility] Heart rate 2018-10-11 15:48:00 113 /min [facility] [place] [facility] [place] Body temperature 2018-10-11 15:48:00 37 Nory [facility] Respiratory rate 2018-10-11 15:48:00 16 /min [facility] Body height 2018-10-11 15:48:00 170.2 cm [facility] Body weight 2018-10-11 15:48:00 120.714 kg [facility] BMI 2018-10-11 15:48:00 41.68 kg/m2 [facility] Systolic blood 2018-10-08 14:25:00 134 mm[Hg] [facility] Diastolic blood 2018-10-08 14:25:00 84 mm[Hg] [facility] [place] [facility] [place] Heart rate 2018-10-08 14:25:00 101 /min [facility] [place] [facility] [place] Body temperature 2018-10-08 14:25:00 36.33 Nory [facility] Respiratory rate 2018-10-08 14:25:00 16 /min [facility] Body height 2018-10-08 14:25:00 170.2 cm [facility] Body weight 2018-10-08 14:25:00 120.203 kg [facility] BMI 2018-10-08 14:25:00 41.50 kg/m2 [facility] Systolic blood 2018-10-04 18:05:00 129 mm[Hg] Univer [facility]ity of [facility] Diastolic blood 2018-10-04 18:05:00 70 mm[Hg] [facility] Heart rate 2018-10-04 18:05:00 109 /min [facility] Body temperature 2018-10-04 18:05:00 37.39 Nory [facility] Respiratory rate 2018-10-04 18:05:00 16 /min [facility] Body height 2018-10-04 18:05:00 170.2 cm [facility] Body weight 2018-10-04 18:05:00 121.281 kg [facility] BMI 2018-10-04 18:05:00 41.88 kg/m2 [facility] Procedures Procedure Date / Time Performing Clinician Source Performed POCT TEST 2022-12-25 17:31:00 Melania Guerrero [facility] POCT SARS-COV-2 ANTIGEN 2022-12-25 17:17:00 Jennifer Alcantar [facility] (BINAX NOW) [facility] ASSIGNMENT OF BENEFITS 2022-12-25 16:54:25 Doctor Unassigned, No [facility] CBC WITH DIFF 2020-02-15 10:52:00 Wagner Azalea [place] o f [facility] CENTRAL NEURAXIAL BLOCK 2020-02-14 18:15:41 Carlitos Perez [facility] CENTRAL NEURAXIAL BLOCK 2020-02-14 18:13:09 Carlitos Perez [facility] SECTION 2020-02-14 16:51:00 Jose Guadalupe Rodriguez [facility] POCT GLUCOSE (AUTOMATED) 2020-02-14 15:45:00 Jose Guadalupe Rodriguez, [facility] CBC WITH DIFF 2020-02-14 14:53:00 Johnathan Anderson [facility] HEPATITIS B SURFACE 2020-02-14 14:53:00 Anderson Mann [facility] ANTIGEN [facility] GALV ONLY - SYPHILIS 2020-02-14 14:53:00 [facility] IGG[facility]IGM [facility] HB ABO GROUPING 2020-02-14 14:39:00 Johnathan Anderson [facility] RHO (D) IMMUNE GLOBULIN 2020-02-14 14:39:00 Azalea Edward [facility] COVID-19 (ID NOW RAPID 2020-02-14 14:28:00 Jose Guadalupe Rodriguez, U [facility] TESTING) [facility] POCT URINALYSIS 2020-02-10 14:03:00 Angie Ly [facility] PATIENT QUESTIONNAIRE 2020-02-10 06:01:00 Doctor Unassigned, No [facility] POCT URINALYSIS 2020-02-05 14:58:00 Angie Ly [facility] PATIENT QUESTIONNAIRE 2020-02-05 06:01:00 Doctor Unassigned, No [facility] NON-STRESS TEST 2020-02-04 01:24:08 [facility] 2020-01-30 15:57:17 AkinAngie pettit C [facility] POCT URINALYSIS 2020-01-30 15:27:00 Akinshashape Angie C [facility] PATIENT QUESTIONNAIRE 2020-01-30 06:01:00 Doctor Unassigned, No [facility] NON-STRESS TEST 2020-01-27 15:47:05 Osvaldo Early [facility] POCT URINALYSIS 2020-01-27 14:58:00 AkinAngie pettit [facility] POCT URINALYSIS 2020-01-23 14:35:00 Angie Ly [facility] CPS / APS / FPS 2020-01-21 06:01:00 Doctor Unassigned, No [facility] NON-STRESS TEST 2020-01-09 16:25:57 Angie Ly U [facility] POCT URINALYSIS 2020-01-09 15:59:00 Angie Ly [facility] NON-STRESS TEST 2020-01-06 14:29:08 Angie Ly U [facility] POCT URINALYSIS 2020-01-06 13:23:00 nAgie Ly [facility] NON-STRESS TEST 2020-01-03 00:31:19 Hannah Rivas [facility] POCT URINALYSIS 2020-01-02 13:15:00 Angie Ly [facility] PATIENT QUESTIONNAIRE 2020-01-02 05:01:00 Doctor Unassigned, No [facility] POCT URINALYSIS 2019-12-25 13:14:00 Angie Ly [facility] TDAP VACCINE, >11 YRS, 2019-12-11 13:15:26 Angie Ly [facility] POCT URINALYSIS 2019-12-11 13:12:00 Angie Ly [facility] RAPID STREP SCREEN FOR 2019-11-23 15:29:00 Belkis Warren [facility] CONSENT/REFUSAL FOR 2019-11-23 14:47:19 Doctor Unassigned, [facility] DIAGNOSIS AND [facility] NOTICE OF PRIVACY 2019-11-23 14:47:03 Doctor Unassigned, No [facility] PRACTICES [facility] POCT URINALYSIS W/O 2019-10-14 15:08:00 Angie Ly [facility] POCT TEST 2019-10-14 15:06:00 Angie Ly [facility] CONSENT/REFUSAL FOR 2019-10-14 14:48:27 Doctor Unassigned, No [facility] DIAGNOSIS AND TREATMENT [facility] ASSIGNMENT OF BENEFITS 2019-10-14 14:48:01 Doctor Unassigned, No [facility] AUTHORIZATION FOR 2019-09-24 05:01:00 Doctor Unassigned, No [facility] RELEASE OF [facility] POCT URINALYSIS 2018-10-17 16:51:00 Lucina Johnson [facility] GALV/CLC ONLY - URINE 2018-10-12 23:39:00 Malu Paniagua [facility] DRUG (IMMUNOASSAY) - Medical [facility] COMPREHENSIVE DRUG SCREEN CBC WITH DIFFERENTIAL 2018-10-12 08:18:00 Igor [facility] V[facility] CORD GAS 2018-10-12 03:10:00 Bryce Clay [facility] SECTION 2018-10-12 02:05:00 Samantha Cordova [facility] TYPE AND SCREEN 2018-10-12 01:15:00 Bryce Clay [facility] CBC WITH DIFFERENTIAL 2018-10-12 01:14:00 Bryce Clay Un [facility] HEPATITIS B SURFACE 2018-10-12 01:14:00 Aristides [facility] ANTIGEN [facility] HIV 1/2 AG-AB WITH 2018-10-12 01:14:00 [facility] REF[facility] GALV ONLY - SYPHILIS 2018-10-12 01:14:00 [facility] IGG/IGM [facility] POCT GLUCOSE (AUTOMATED) 2018-10-12 00:43:00 Samantha Cordova [facility] NON-STRESS TEST 2018-10-11 16:44:20 Vern Worthington [facility] POCT URINALYSIS 2018-10-11 15:49:00 Lucina Johnson [facility] PATIENT QUESTIONNAIRE 2018-10-11 05:01:00 Doctor Unassigned, No [facility] BIOPHYSICAL PROFILE 2018-10-09 13:38:26 Kavita Momin [facility] POCT URINALYSIS 2018-10-08 14:28:00 Lucina Johnson [facility] NON-STRESS TEST 2018-10-04 18:46:[address] [facility] POCT URINALYSIS 2018-10-04 18:06:00 Lucina Johnson [facility] PATIENT QUESTIONNAIRE 2018-09-27 05:01:00 Doctor Unassigned, No [facility] Encounters Start End Encounter Admission Attending Care Care Encounter Source Date/Time Date/Time Type Type Clinicians Facility Department ID 2021-01-08 Emergency [facility] [id number] Univers 17:12:32 ity [facility] 2022-12-25 2022-12-25 Urgent Melania Guerrero [facility] 1.2.840.11 [id number] Univers 11:40:00 12:00:00 Care Unknown, [facility].13.10 [facility] 4.2.7.2.686 Angel as JORDON?BLEA [phone] [address] MEDICAL OFFICE BUILDING 2022-12-25 2022-12-25 Outpatient R YOLANDA [facility] [id number] Univers 11:40:00 11:40:00 MELANIA [facility] 2022-12-25 2022-12-25 Orders Doctor GUADALUPE 1.2.840.114 [id number] Univers 00:00:00 00:00:00 Only Unassigned, JIGNESH 350.1.13.10 ity of [place] [facility] 4.2.7.2.686 Angel as [phone] [address] 2021-04-01 2021-04-01 Telephone [facility] 1.2.385.650 [id number] Univers 00:00:00 00:00:00 Osvaldo Hampton [place] 350.1.13.10 ity [facility] 4.2.7.2.686 Angel as MATERNAL [phone] Med ical & CHILD [address] [place] [address] 2021-03-31 2021-03-31 Telephone Aliyah [facility] 1.2.840.114 [id number] Univers 00:00:00 00:00:00 Angie C [place] 350.1.13.10 [facility] 4.2.7.2.686 Angel as MATERNAL [phone] [facility] & CHILD [address] [place] [address] 2021-03-24 2021-03-24 [facility] 1.2.840.114 [id number] Univers 00:00:00 00:00:00 Addie [place] 350.1.13.10 i [facility] 4.2.7.2.686 Angel as MATERNAL [id number] [address] 2021-03-22 2021-03-22 [facility] 1.2.339.704 [id number] Univers 00:00:00 00:00:00 Addie [place] [place] 350.1.13.10 i ty of [facility] 4.2.7.2.686 Angel as MATERNAL [id number] [address] 2020-04-27 2020-04-27 Outpatient Memo EARLY [facility] [id number] Univers 09:00:00 09:00:00 OSVALDO hillman [facility] 2020-02-14 2020-02-17 [facility] 1.2.840.114 [id number] 08:04:00 12:35:00 Encounter Chely GALEANOY 350.1.13.10 [facility] 4.2.7.2.686 [id number] [facility] 2020-02-14 2020-02-17 [facility] 1.2.840.114 [id number] Univers 08:04:00 12:35:00 Encounter Komaxounicolas GALEANOY 350.1.13.10 ity of [facility] 4.2.7.2.686 Angel as [id number] [address] 2020-02-17 2020-02-17 1.2.840.1 1.2.840.114 [id number] 00:00:00 00:00:00 Encounter [id number] 350.1.13.10 3.104.2.7 4.2.7.2.696 [id number] 2020-02-17 2020-02-17 1.2.840.1 1.2.840.114 [id number] Univers 00:00:00 00:00:00 Encounter [id number] 350.1.13.10 ity of 3.104.2.[place] .[id number] [facility] 2020-02-14 2020-02-14 Anesthesia Carlitos Perez 1.2. 840.114 [id number] 10:18:00 14:00:00 Helga Pitts 350.1.13.10 [place] 4.2.7.2.686 [id number] 2020-02-14 2020-02-14 Anesthesia Carlitos Perez 1.2. 840.114 [id number] Univers 10:18:00 14:00:00 Helga Pitts 350.1.13.10 ity [place].686 [place] [phone] [address] 2020-02-14 2020-02-14 Outpatient P ALFORD [facility] AMINATA [id number] Univers 08:04:00 08:04:00 CHELY it y of SLYUDMILA [facility] 2020-02-13 2020-02-13 Outpatient R [facility] [id number] Univers 08:00:00 08:00:00 ity of [facility] 2020-02-12 2020-02-12 Desolderer Ultrasound, [facility] 1.2.840.114 [id number] 09:38:50 10:03:19 Visit Simeongiselle [facility] 350.1.13.10 REGIONAL 4.2.7.2.686 MATERNAL [phone] & CHILD [address] [address] 2020-02-12 2020-02-12 Desolderer Ultrasound, [facility] 1.2 .840.114 [id number] [facility] 09:38:50 10:03:19 Visit Harpreet Cherry [employer] [place] 350.1.13.10 ity of Vern Worthington REGIONAL 4.2.7.2.686 [place] MATERNAL [id number] Med ical & CHILD [address] [facility] [place] 2020-02-12 2020-02-12 Outpatient P HARPREET CHERRY [facility] [id number] Univers 09:30:00 09:30:00 HARPREET CHERRY ity of [facility] 2020-02-12 2020-02-12 [facility] 1.2.840.114 [id number] 00:00:00 00:00:00 Angie C [employer] [place] 350.1.13.10 REGIONAL 4.2.7.2.686 MATERNAL [id number] & CHILD [address] [place] [address] 2020-02-12 2020-02-12 Abstract [facility] 1.2.840.114 [id number] [facility] 00:00:00 00:00:00 Angie C [place] [place] 350.1.13.10 ity of REGIONAL 4.2.7.2.686 Angel as MATERNAL [phone] Med ical & CHILD [address] [place] [address] 2020-02-10 2020-02-10 Telemedici Faculty, [facility] 1.2.840.114 [id number] Univers 08:25:58 08:55:58 ne Visit Lyudmila Roy [place] 350.1 .13.10 ity of REGIONAL 4.2.7.2.686 Angel as MATERNAL [phone] [facility] & CHILD [address] [place] [address] 2020-02-10 2020-02-10 Telemedici Faculty, [facility] 1.2.840.114 [id number] 08:25:58 08:55:58 ne Visit [facility] [place] 350.1.13.10 [facility] 4.2.7.2.686 MATERNAL [id number] & CHILD [address] [place] [address] 2020-02-10 2020-02-10 Routine [facility] 1.2.306.224 [id number] Univers 07:51:17 08:53:42 Angei C [place] [place] 350.1.13.10 ity of Visit REGIONAL 4.2.7.2.686 Angel as MATERNAL [id number] [facility] ical & CHILD [address] [place] [address] 2020-02-10 2020-02-10 Routine A[place], [facility] 1.2.636.392 [id number] 07:51:17 08:53:42 Angie C [place] 350.1.13.10 Visit REGIONAL 4.2.7.2.686 MATERNAL [id number] & CHILD [facility] 2020-02-10 2020-02-10 Outpatient R [facility] [id number] Univers 08:30:00 08:30:00 ity of [facility] 2020-02-10 2020-02-10 Orders Doctor COLLINS 1.2.840.114 [id number] Univers 00:00:00 00:00:00 Only Unassigned, JIGNESH 350.1.13.10 ity of [place] [facility] 4.2.7.2.686 Angel as [phone] [address] 2020-02-10 2020-02-10 Orders Doctor GUADALUPE 1.2.840.114 [id number] 00:00:00 00:00:00 Only Unassigned, JIGNESH 350.1.13.10 [place] [address]686 [id number] [facility] 2020-02-05 2020-02-05 Outpatient R AKINSIPE, [facility] [id number] Univers 15:15:00 15:15:00 ANGIE ity o f [facility] 2020-02-05 2020-02-05 Routine [place], [facility] 1.2.741.033 [id number] 08:34:33 09:37:41 Angie C [employer] [place] 350.1.13.10 Visit REGIONAL 4.2.7.2.686 MATERNAL [id number] & CHILD 107 [facility] 2020-02-05 2020-02-05 Routine Akinsipe, [facility] 1.2.654.930 [id number] Univers 08:34:33 09:37:41 Angie C [place] [place] 350.1.13.10 ity of Visit REGIONAL 4.2.7.2.686 Angel as MATERNAL [id number] Med ical & CHILD [address] [place] [address] 2020-02-05 2020-02-05 Orders Doctor GUADALUPE 1Mackenzie2.840.114 [id number] 00:00:00 00:00:00 Only Unassigned, JIGNESH 350.1.13.10 [place] [facility] 4.2.7.2.686 [id number] [facility] 2020-02-05 2020-02-05 Orders Doctor COLLINS 1.2.840.114 [id number] [facility] 00:00:00 00:00:00 Only Unassigned, JIGNESH 350.1.13.10 ity of [place] [facility] 4.2.7.2.686 Angel as [phone] [address] 2020-02-03 2020-02-03 Routine Faculty, [facility] 1.2.840.114 [id number] 08:37:59 10:21:14 Adam [facility] [place] 350.1.13.10 Visit [facility] 4.2.7.2.686 MATERNAL [id number] & CHILD [address] [place] [address] 2020-02-03 2020-02-03 Routine Faculty, [facility] 1.2 .840.114 [id number] [facility] 08:37:59 10:21:14 Samantha Cordova [place] [place] 350.1.13.10 ity of Visit REGIONAL 4.2.7.2.686 Angel as MATERNAL [id number] Med ical & CHILD [address] [place] [address] 2020-02-03 2020-02-03 Outpatient R [facility] [id number] Univers 08:30:00 08:30:00 ity of [facility] 2020-01-30 2020-01-30 Routine [facility], [facility] 1.2.660.387 [id number] 09:01:45 10:04:06 Angie C [place] 350.1.13.10 Visit REGIONAL 4.2.7.2.686 MATERNAL [id number] & CHILD [address] [place] [address] 2020-01-30 2020-01-30 Routine [facility], [facility] 1.2.531.194 [id number] [facility] 09:01:45 10:04:06 Angie C [place] [place] 350.1.13.10 ity of Visit REGIONAL 4.2.7.2.686 Angel as MATERNAL [phone] Med ical & CHILD [address] [place] [address] 2020-01-30 2020-01-30 Outpatient R [facility] [id number] Univers 09:00:00 09:00:00 ity of [facility] 2020-01-30 2020-01-30 Orders Doctor COLLINS 1.2.840.114 [id number] 00:00:00 00:00:00 Only Unassigned, JIGNESH 350.1.13.10 [place] [facility] 4.2.7.2.686 [id number] [facility] 2020-01-30 2020-01-30 Orders Doctor COLLINS 1.2.840.114 [id number] Univers 00:00:00 00:00:00 Only Unassigned, JIGNESH 350.1.13.10 ity of [place] [facility] 4.2.7.2.686 Angel as [phone] [address] 2020-01-27 2020-01-27 Telemedici Faculty, [facility] 1.2.840.114 [id number] 09:45:11 09:45:51 ne Visit Adam [facility] [place] 350.1.13.10 [facility] 4.2.7.2.686 MATERNAL [id number] & CHILD [address] [place] [address] 2020-01-27 2020-01-27 Telemedici Faculty, [facility] 1.2.840.114 [id number] [facility] 09:45:11 09:45:51 ne Visit Lyudmila Roy [place] 350.1 .13.10 ity of [facility] 4.2.7.2.686 Angel as MATERNAL [phone] Med ical & CHILD [address] [place] [address] 2020-01-27 2020-01-27 Routine [facility] 1.2.840.114 [id number] 08:06:57 09:45:32 Roshunda R [place] 350.1.13.10 Visit [facility] 4.2.7.2.686 MATERNAL [id number] & CHILD [address] [place] [address] 2020-01-27 2020-01-27 Routine [facility] 1.2.840.114 [id number] Univers 08:06:57 09:45:32 Roshunda R [place] [place] 350.1.13.10 ity of Visit [facility] 4.2.7.2.686 Angel as MATERNAL [id number] [facility] ical & CHILD [address] [place] [address] 2020-01-27 2020-01-27 Outpatient R [facility] [id number] Univers 08:30:00 08:30:00 ity [facility] 2020-01-23 2020-01-23 Routine [place], [facility] 1.2.072.865 [id number] 08:16:33 09:15:06 Angie C [place] 350.1.13.10 Visit REGIONAL 4.2.7.2.686 MATERNAL [id number] & CHILD [address] [place] [address] 2020-01-23 2020-01-23 Routine Akins[place], [facility] 1.2.383.097 [id number] Univers 08:16:33 09:15:06 Angie C [place] [place] 350.1.13.10 ity of Visit REGIONAL 4.2.7.2.686 Angel as MATERNAL [id number] Med ical & CHILD [address] [place] [address] 2020-01-23 2020-01-23 Outpatient R [facility] [id number] Univers 08:30:00 08:30:00 ity of [facility] 2020-01-21 2020-01-21 Orders Doctor COLLINS 1.2.840.114 [id number] 00:00:00 00:00:00 Only Unassigned, JIGNESH 350.1.13.10 [place] [facility] 4.2.7.2.686 [id number] [facility] 2020-01-21 2020-01-21 Orders Doctor COLLINS 1.2.840.114 [id number] Univers 00:00:00 00:00:00 Only Unassigned, JIGNESH 350.1.13.10 ity of [place] [facility] 4.2.7.2.686 Angel as [phone] [address] 2020-01-20 2020-01-20 Outpatient R [facility] [id number] Univers 08:00:00 08:00:00 ity of [facility] 2020-01-16 2020-01-16 Outpatient R [facility] [id number] Univers 09:15:00 09:15:00 ity of [facility] 2020-01-16 2020-01-16 Telephone A[place], [facility] 1.2.840.114 [id number] 00:00:00 00:00:00 Angie C [place] [place] 350.1.13.10 REGIONAL 4.2.7.2.686 MATERNAL [id number] & CHILD 107 [facility] 2020-01-16 2020-01-16 Telephone [facility], [facility] 1.2.840.114 [id number] [facility] 00:00:00 00:00:00 Angie C [employer] [place] 350.1.13.10 ity [facility] 4.2.7.2.686 Angel as MATERNAL [phone] Med ical & CHILD [address] [facility] [place] [place] 2020-01-15 2020-01-15 Desolderer Ultrasound, [facility] 1.2.840.114 [id number] 09:20:19 09:53:[facility] 350.1.13.10 REGIONAL 4.2.7.2.686 MATERNAL [phone] & CHILD 369 [facility] 2020-01-15 2020-01-15 Desolderer Ultrasound, [facility] 1.2 .840.114 [id number] [facility] 09:20:19 09:53:20 Visit Harpreet Cherry TRIBAL DELEGATE 350.1.13.10 [facility] 4.2.7.2.686 [place] MATERNAL [phone] Med ical & CHILD [address] [place] [facility] [place] [place] 2020-01-15 2020-01-15 Outpatient P HARPREET CHERRY [facility] [id number] [facility] 09:30:00 09:30:00 HARPREET CHERRY ity [facility] 2020-01-15 2020-01-15 Telephone [facility] 1.2.840.114 [id number] 00:00:00 00:00:00 Angie C TRIBAL DELEGATE 350.1.13.10 REGIONAL 4.2.7.2.686 MATERNAL [phone] & CHILD 107 [facility] 2020-01-15 2020-01-15 Abstract [facility], [facility] 1.2.840.114 [id number] 00:00:00 00:00:00 Angie C TRIBAL DELEGATE 350.1.13.10 REGIONAL 4.2.7.2.686 MATERNAL [phone] & CHILD [address] [place] [address] 2020-01-15 2020-01-15 Telephone A[place], [facility] 1.2.840.114 [id number] Univers 00:00:00 00:00:00 Angie C TRIBAL DELEGATE 350.1.13.10 ity of REGIONAL 4.2.7.2.686 Angel as MATERNAL [phone] [facility] & CHILD [address] [place] [address] 2020-01-15 2020-01-15 Abstract Akinpe, [facility] 1.2.840.114 [id number] Univers 00:00:00 00:00:00 Angie C TRIBAL DELEGATE 350.1.13.10 ity of REGIONAL 4.2.7.2.686 Angel as MATERNAL [phone] [facility] & [address] 2020-01-13 2020-01-13 Outpatient R [facility] [id number] Univers 09:30:00 09:30:00 ity [facility] 2020-01-09 2020-01-09 Routine Akinsipe, [facility] 1.2.772.038 [id number] 10:39:53 11:24:55 Angie C TRIBAL DELEGATE 350.1.13.10 Visit REGIONAL 4.2.7.2.686 MATERNAL [phone] & CHILD [address] [place] [address] 2020-01-09 2020-01-09 Routine Akinpe, [facility] 1.2.371.568 [id number] Univers 10:39:53 11:24:55 Angie C TRIBAL DELEGATE 350.1.13.10 ity of Visit REGIONAL 4.2.7.2.686 Angel as MATERNAL [phone] [facility] & CHILD [address] [place] [address] 2020-01-09 2020-01-09 Outpatient R [facility] [id number] Univers 10:15:00 10:15:00 ity [facility] 2020-01-06 2020-01-06 Routine Akinsipe, [facility] 1.2.305.351 [id number] Univers 08:12:49 09:18:07 Angie C TRIBAL DELEGATE 350.1.13.10 ity of Visit REGIONAL 4.2.7.2.686 Angel as MATERNAL [phone] [facility] ical & CHILD [address] [place] [address] 2020-01-06 2020-01-06 Outpatient R [facility] [id number] Univers 08:30:00 08:30:00 ity of [facility] 2020-01-06 2020-01-06 Telephone [facility] 1.2.840.114 [id number] 00:00:00 00:00:00 Angie C TRIBAL DELEGATE 350.1.13.10 REGIONAL 4.2.7.2.686 MATERNAL [phone] & CHILD [address] [place] [address] 2020-01-06 2020-01-06 Case Rob [facility] 1.2.729.224 [id number] Univers 00:00:00 00:00:00 Management Hannah Messer TRIBAL DELEGATE 350.1.13.10 ity of REGIONAL 4.2.7.2.686 Angel as MATERNAL [phone] [facility] ical & CHILD [address] [place] [address] 2020-01-06 2020-01-06 Telephone [facility], [facility] 1.2.840.114 [id number] Univers 00:00:00 00:00:00 Angie C TRIBAL DELEGATE 350.1.13.10 ity of REGIONAL 4.2.7.2.686 Angel as MATERNAL [phone] [facility] & CHILD [address] [place] [address] 2020-01-02 2020-01-02 Routine Risk, Jak-Cicwg-Ki/High [facility] 1. 2.840.114 [id number] Univers 08:00:49 09:23:19 Hannah Rivas TRIBAL DELEGATE 350.1.13.10 ity of Visit REGIONAL 4.2.7.2.686 Agnel as MATERNAL [phone] [facility] & CHILD [address] [place] [address] 2020-01-02 2020-01-02 Outpatient R [facility] [id number] Univers 08:00:00 08:00:00 ity of [facility] 2019-12-25 2019-12-25 Routine [facility], [facility] 1.2.796.865 [id number] Univers 08:01:51 08:37:27 Angie C TRIBAL DELEGATE 350.1.13.10 ity of Visit REGIONAL 4.2.7.2.686 Angel as MATERNAL [phone] Med ical & CHILD [address] [place] [address] 2019-12-25 2019-12-25 Outpatient R ALIYAH [facility] [id number] Univers 08:00:00 08:00:00 ANGIE ity o f [facility] 2019-12-19 2019-12-19 Telephone Aliyah [facility] 1.2.840.114 [id number] Univers 00:00:00 00:00:00 Angie C TRIBAL DELEGATE 350.1.13.10 ity of REGIONAL 4.2.7.2.686 Angel as MATERNAL [phone] [facility] & CHILD [address] [place] [address] 2019-12-18 2019-12-18 Desolderer Ultrasound, Simeongiselle [facility] 1.2 .840.114 [id number] Univers 09:26:46 09:56:46 Visit Harpreet Cherry TRIBAL DELEGATE 350.1.13.10 ity of Jose Guadalupe Lyudmila Rodriguez REGIONAL 4.2.7.2 .686 [place] MATERNAL [phone] Med ical & CHILD [address] [place] [facility] [place] [place] 2019-12-18 2019-12-18 Outpatient P HARPREET CHERRY [facility] [id number] Univers 09:30:00 09:30:00 HARPREET CHERRY ity of [facility] 2019-12-18 2019-12-18 Nurse Visit, Ang-Rmchp Nurse [facility] 1.2 .840.114 [id number] Univers 08:33:49 09:00:55 Visit Angie Ly TRIBAL DELEGATE 350.1.13. 10 ity of REGIONAL 4.2.7.2.686 Angel as MATERNAL [phone] [facility] ical & CHILD [address] [place] [address] 2019-12-18 2019-12-18 Abstract Aliyah [facility] 1.2.840.114 [id number] Univers 00:00:00 00:00:00 Angie C TRIBAL DELEGATE 350.1.13.10 ity of REGIONAL 4.2.7.2.686 Angel as MATERNAL [phone] [facility] ical & CHILD [address] [place] [address] 2019-12-13 2019-12-13 Telephone [facility] 1.2.840.114 [id number] Univers 00:00:00 00:00:00 Angie C TRIBAL DELEGATE 350.1.13.10 ity of [facility] 4.2.7.2.686 Angel as MATERNAL [phone] [facility] ical & CHILD [address] [place] [address] 2019-12-11 2019-12-11 Routine [facility] 1.2.108.594 [id number] Univers 07:47:26 08:37:00 Angie C TRIBAL DELEGATE 350.1.13.10 ity of Visit [facility] 4.2.7.2.686 Angel as MATERNAL [phone] [facility] & CHILD [address] [place] [address] 2019-12-11 2019-12-11 Outpatient R [facility] [id number] Univers 08:00:00 08:00:00 ANGIEPAULA hall o f [facility] 2019-11-24 2019-11-24 Patient Doctor COLLINS 1.2.840.114 [id number] Univers 00:00:00 00:00:00 Secure Msg Unassigned, JIGNESH 350.1.13.10 ity of [place] [facility] 4.2.7.2.686 Angel as [phone] [facility] [address] [place] 2019-11-23 2019-11-23 Emergency Warren, [facility] 1.2.840.114 [id number] Univers 09:55:00 13:42:00 Belkis [place] 350.1.13.10 i ty of [place].2.[place] [phone] [facility] [address] [place] [address] 2019-11-21 2019-11-21 Abstract [facility] 1.2.840.114 [id number] Univers 00:00:00 00:00:00 Angie C TRIBAL DELEGATE 350.1.13.10 ity of [facility] 4.2.7.2.686 Angel as MATERNAL [phone] [facility] ical & CHILD [address] [place] [address] 2019-11-20 2019-11-20 Desolderer Ultrasound, Adam-Mfm [facility] 1.2 .840.114 [id number] Univers 08:15:23 09:00:45 Visit Harpreet Cherry TRIBAL DELEGATE 350.1.13.10 ity of REGIONAL 4.2.7.2.686 Angel as MATERNAL [phone] [facility] & CHILD [address] [place] [facility] [place] [place] 2019-11-20 2019-11-20 Outpatient R [facility] [id number] Univers 08:30:00 08:30:00 ity of [facility] 2019-11-11 2019-11-11 [facility] [id number] Univers 09:00:00 09:00:00 ANGIE ity o f [facility] 2019-10-23 2019-10-23 Outpatient P CONCHITACRISTIANE, [facility] [id number] Univers 08:30:00 08:30:00 SAMANTHA ity [facility] 2019-10-16 2019-10-16 Telephone Tri Esqueda 1.2.840.114 [id number] Univers 00:00:00 00:00:00 JIGNESH 350.1.13.10 it y of HOSPITAL 4.2.7.2.686 Angel as [phone] [facility] [address] [place] 2019-10-14 2019-10-14 [facility] 1.2.075.615 [id number] Univers 10:02:14 11:31:28 Angei Longoria TRIBAL DELEGATE 350.1.13.10 ity of Visit REGIONAL 4.2.7.2.686 Angel as MATERNAL [phone] [facility] & CHILD [address] [place] [address] 2019-10-14 2019-10-14 [facility] [id number] Univers 10:30:00 10:30:00 ANGIE ity o f [facility] 2019-10-14 2019-10-14 Orders Doctor COLLINS 1.2.840.114 [id number] Univers 00:00:00 00:00:00 Only Unassigned, JIGNESH 350.1.13.10 ity of [place] [facility] 4.2.7.2.686 Angel as [phone] [facility] [address] [place] 2019-09-30 2019-09-30 Out[facility] [id number] Univers 09:30:00 09:30:00 ANGIE ity o f [facility] 2019-09-24 2019-09-24 Orders Doctor COLLINS 1.2.840.114 [id number] 00:00:00 00:00:00 Only Unassigned, JIGNESH 350.1.13.10 [place] [facility] 42.7.2.686 [id number] 009 2019-09-24 2019-09-24 Orders Doctor COLLINS 1.2.840.114 [id number] Univers 00:00:00 00:00:00 Only Unassigned, JIGNESH 350.1.13.10 ity of [place] [facility] 4.2.7.2.686 Angel as [phone] [address] 2018-11-08 2018-11-08 Telephone Isadora [facility] 1.2.840.114 [id number] Univers 00:00:00 00:00:00 , Lucitasharyn EGAN 350.1.13.10 i ty of [facility] 4.2.7.2.686 Angel as [phone] [address] 2018-10-19 2018-10-19 Nurse Visit, [facility] Nurse [facility] 1.2 .840.114 [id number] [facility] 13:49:07 14:54:48 Visit Osvaldo Early TRIBAL DELEGATE 350.1.13.10 ity of [facility] 4.2.7.2.686 Angel as MATERNAL [phone] [facility] ical & CHILD [address] [place] [address] 2018-10-17 2018-10-17 Routine Tereso NCJAMA 1.2.840.114 [id number] [facility] 11:36:32 11:54:06 Osvaldo R TRIBAL DELEGATE 350.1.13.10 ity of Visit [facility] 4.2.7.2.686 Angel as MATERNAL [phone] [facility] & CHILD [address] [place] [address] 2018-10-15 2018-10-15 Telephone Isadora [facility] 1.2.840.114 [id number] Univers 00:00:00 00:00:00 , Lucita EGAN 350.1.13.10 i ty of [facility] 4.2.7.2.686 Angel as [id number] [address] 2018-10-15 2018-10-15 1.2.840.1 1.2.840.114 [id number] Univers 00:00:00 00:00:00 Encounter [id number] 350.1.13.10 ity of 3.104.2.7 [place].2.696 [place] .[id number] [facility] [place] 2018-10-11 2018-10-14 Hospital ArtCOLLINS 1.2.599.871 [id number] Univers 18:46:00 12:53:00 Encounter Samantha EGAN 350.1.13.10 ity of HOSPITAL 4.2.7.2.686 Angel as [phone] [facility] [address] [place] 2018-10-14 2018-10-14 1.2.840.1 1.2.840.114 [id number] Univers 00:00:00 00:00:00 Encounter [id number] 350.1.13.10 ity of 3.104.2.7 [place].2.696 [place] .[id number] 570 [facility] 2018-10-11 2018-10-11 Routine Faculty, Adam Nieto [facility] 1.2 .840.114 [id number] Univers 10:38:34 11:31:42 Vern Worthington TRIBAL DELEGATE 350.1.13.10 ity of Visit REGIONAL 4.2.7.2.686 Angel as MATERNAL [phone] [facility] ical & CHILD [address] [place] [address] 2018-10-11 2018-10-11 Orders Doctor COLLINS 1.2.840.114 [id number] Univers 00:00:00 00:00:00 Only Unassigned, JIGNESH 350.1.13.10 ity of [place] [facility] 4.2.7.2.686 Angel as [phone] [facility] [address] 2018-10-08 2018-10-09 Routine Faculty, [facility] 1.2 .840.114 [id number] Univers 08:49:24 09:36:03 Kavita Momin TRIBAL DELEGATE 350.1.1 3.10 ity of Visit REGIONAL 4.2.7.2.686 Angel as MATERNAL [phone] [facility] ical & CHILD [address] [place] [facility] [place] [place] 2018-10-04 2018-10-04 Routine Faculty, Adam Nieto [facility] 1.2 .840.114 [id number] Univers 12:57:07 14:20:26 Samantha Cordova TRIBAL DELEGATE 350.1.13.10 ity of Visit REGIONAL 4.2.7.2.686 Angel as MATERNAL [phone] [facility] ical & CHILD [address] [place] [address] 2018-09-27 2018-09-27 Orders Doctor COLLINS 1.2.840.114 [id number] Univers 00:00:00 00:00:00 Only Unassigned, JIGNESH 350.1.13.10 ity of [place] [facility] 4.2.7.2.686 Angel as [phone] [facility] [address] [place] 2018-09-19 2018-09-19 Patient Doctor COLLINS 1.2.840.114 [id number] Univers 00:00:00 00:00:00 Secure Msg Unassigned, JIGNESH 350.1.13.10 ity of [place] [facility] 4.2.7.2.686 Angel as [id number] [facility] [address] [place] 2018-09-14 2018-09-14 Patient Doctor COLLINS 1.2.840.114 [id number] Univers 00:00:00 00:00:00 Secure Msg Unassigned, JIGNESH 350.1.13.10 ity of [place] [facility] 4.2.7.2.686 Angel as [phone] [address] Results Test Description Test Time Test Comments Results Result Comments Source POCT TEST 2022-12-25 17:32:00 Test Item Value Reference Range Interpretation Comme nts POCT PREG (test code = 1605) Negative On board controls acceptable with C Line Yes (test code = 3574) POCT PREG LOT # (test code = 3575) POCT PREG TEST DATE (test code = 3576) EMILY (test code = EMILY) accurate development and interpretation of all internal controls Lab Interpretation (test code = 85043-5) [facility] SARS-COV-2 ANTIGEN (BINAX NOW)2022-12-25 17:17:00 Test Item Value Reference Range Interpretation Comments POCT SARS-COV-2 ANTIGEN Not Detected Not Detected (test code = 45823-5) On board controls Yes acceptable with C Line (test code = 3574) EMILY (test code = EMILY) accurate development and interpretation of all internal controls Lab Interpretation Normal (test code = 75082-6) [facility] - SYPHILIS IGG/[id number] 16:43:00 Test Item Value Reference Range Interpretation Comments Syphilis IgG/IgM (test Non-reactive Non-reactive code = 69579-9) EMILY (test code = EMILY) Non-reactive - No serologic evidence of T. pallidum infection. Cannot exclude incubating or early syphilis. Submit a second specimen in 2-4 weeks if syphilis is clinically suspected. Equivocal - Further testing to follow. Reactive - Further testing to follow. Lab Interpretation (test Normal code = 24905-4) [facility] with [id number] 11:22:00 Test Item Value Reference Range Interpretation Comments WBC (test code = See_Comment [Automated 0190-2) message] The sy stem which generated this result transmitted reference range : 4.30 - 11.10 10*3/?L. The reference range was not used to interpret this result as normal/abnormal . RBC (test code = See_Comment L [Automated 719-8) message] The sy stem which generated this result transmitted reference range : 3.93 - 5.25 10*6/?L. The reference range was not used to interpret this result as normal/abnormal . HGB (test code = 10.3 g/dL 11.6-15 L 718-7) HCT (test code = 31.3 % 35.7-45.2 L 4544-3) MCV (test code = 87.2 fL 80.6-95.5 787-2) MCH (test code = 28.7 pg 25.9-32.8 785-6) MCHC (test code = 32.9 g/dL 31.6-35.1 786-4) RDW-SD (test code = 47.0 fL 39-49.9 02219-2) RDW-CV (test code = 14.6 % 12-15.5 788-0) PLT (test code = See_Comment [Automated 777-3) message] The sy stem which generated this result transmitted reference range : 166 - 358 10*3/ ?L. The reference r julián was not used to interpret this result as normal/abnormal . MPV (test code = 10.4 fL 9.5-12.9 63505-0) NRBC/100 WBC (test See_Comment [Automat ed code = 4853211474) message] The system which generated this result transmitted reference range : 0.0 - 10.0 /100 WBCs. The refer ence range was not u sed to interpret th is result as normal/abnormal . NRBC x10^3 (test code <0.01 See_Comment [Auto mated = 4918242182) message] The s ystem which generated this result transmitted reference range : 10*3/?L. The reference range was not used to interpret this result as normal/abnormal . GRAN MAT (NEUT) % 70.9 % (test code = 770-8) IMM GRAN % (test code 1.00 % = 4022779650) LYMPH % (test code = 16.2 % 736-9) MONO % (test code = 10.8 % 5905-5) EOS % (test code = 0.9 % 713-8) BASO % (test code = 0.2 % 706-2) GRAN MAT x10^3(ANC) 6.60 10*3/uL 1.88-7.09 (test code = 5671442119) IMM GRAN x10^3 (test 0.09 10*3/uL 0-0.06 H code = 5537459597) LYMPH x10^3 (test code 1.51 10*3/uL 1.32-3.29 = 731-0) MONO x10^3 (test code 1.00 10*3/uL 0.33-0.92 H = 742-7) EOS x10^3 (test code = 0.08 10*3/uL 0.03-0.39 711-2) BASO x10^3 (test code <0.03 0.01-0.07 = 704-7) Lab Interpretation Abnormal (test code = 70186-4) [facility] (D) IMMUNE [id number] 21:56:47 Test Item Value Reference Range Interpretation Comments RHIG CANDIDATE? No- see comment Performed at [facility] (test code = Laboratory Serv ices - 5055) [facility] Blood Bank[address] [place] [address] Nallely Monroe [address]Qbse Free: [phone] A No. [id number] [facility] South[facility] Neuraxial Fewpe6248-82-51 18:15:41Ten Carlitos Jasso MD ? ? 02/14/2020 12:17 PM Central Neuraxial Block Performed by: Carlitos Perez MDAuthorized by: Helga Pitts MD Start Time: ?02/14/2020 11:55 AMEnd Time: ?02/14/2020 12:10 PMReason for Block: ?Patient request and Surgical anesthesiaStaff: ?Anesthesiologist: ?Helga Pitts MD ?Resident/COMMERCIAL DOOR INSTALLER: ?Simi Luna MBBS ?Performed by: ?Resident/COMMERCIAL DOOR INSTALLER patient identified, IV checked,risks and benefits explained, monitors and equipment checked, timeout performed, ob surgical consent/approval, pre-op evaluation, surgical consent, site marked, anesthesia consent and OB/surgical consent verifiedEpidural: ?Patient Position: ?Sitting ?Prep: Betadine ? ?Monitoring: ?Heart rate, continuous pulse ox and NIBP ?Location: ?Lumbar (1-5) ?Lumbar: ?L2-L3 ?Approach: ?MidlineInjection Technique:?DAPHNIE salineNeedle and Epidural Catheter: ?Epidural Kit: ?BBraun ?Needle Type: ?Tuohy ?Needle Length:?3.5 in (8.89 cm)Catheter Size: ?19 G Number of Attempts: 1Test Dose: ?Lidocaine 1.5% with epinephrine 1-to-200,000Dose: 3 cc Assessment: ?Sensory Level: ?Above E82XbpqugnkwdAntelope Memorial Hospitalral Neuraxial Wgzsw8090-40-28 18:13:09Ten Carlitos Jasso MD ? ? 02/14/2020 12:15 PM Central Neuraxial Block Performed by: Carlitos Perez MDAuthorized by: Helga Pitts MD Start Time: ?02/14/2020 11:03 AMEnd Time: ?02/14/2020 11:23 AMReason for Block: ?Surgical anesthesia and Patient requestStaff: ?Anesthesiologist: ?Helga Pitts MD ?Resident/COMMERCIAL DOOR INSTALLER: ?Carlitos Perez MD ?Performed by: ?Resident/COMMERCIAL DOOR INSTALLER patient identified, IV checked, risks and benefits explained, monitors and equipment checked, timeout performed, ob surgical consent/approval, pre-op evaluation, surgical consent, site marked, anesthesia consent and OB/surgical consent verifiedEpidural: ?Patient Position: ?Sitting ?Prep: Betadine ? ?Monitoring: ?Heart rate, continuous pulse ox and NIBP ?Location: ?Lumbar (1-5) ?Lumbar: ?L3-L4 ?Approach: ?MidlineInjection Technique: ?DAPHNIE salineNeedle and Epidural Catheter: ?Epidural Kit: ?BBraun ?Needle Type: ?Tuohy ?Needle Length: ?3.5 in (8.89 cm)Catheter Size: ?19 G Number of Attempts: 1Test Dose: ?Lidocaine 1.5% with epinephrine 1-to-200,000 and negativeDose: 3 cc Assessment: ?Sensory Level: ?Above I39ZsfrigjinxSaint David's Round Rock Medical CenterHepatitis B Surface Vulvsow9871-10-36 16:46:00 Test Item Value Reference Range Interpretation Comments HBsAg Semi-Quantitative (test code = Negative Negative 5195-3) [facility] SouthPO[facility] GLUCOSE (AUTOMATED)2020-02-14 15:46:00 Test Item Value Reference Range Interpretation Comments POCT GLU (test code = 7034159454) 107 mg/dL 70-110 Lab Interpretation (test code = Normal 31766-7) [facility] SouthType and Screen - ONCE [id number] 15:44:42 Test Item Value Reference Range Interpretation Comments ABO & RH (test code A POSITIVE Performe d at [facility] = 20) [facility] [place] [address] s [address]Nvpi Free: [phone] A No. [id number] IAT (test code = Negative Performed a t [facility] 1185) Laboratory [facility] Blood Bank[address] [place] [address] s [address]Tspp Free: [phone] A No. [id number] [facility] SouthCOVID-19 (ID NOW RAPID TESTING)2020-02-14 15:32:00 Test Item Value Reference Range Interpretation Comments SARS-CoV-2 Rapid ID NOW Not Detected Not Detected (test code = 80743-1) EMILY (test code = EMILY) ID NOW COVID-19 Assay is an isothermal nucleic acid amplification test intended for the qualitative detection of nucleic acid from SARS-CoV-2 viral RNA in nasopharyngeal (TESTING ANALYST) specimens. It is used under Emergency Use Authorization (EUA) by FDA. The limit of detection (LOD) of the assay is 125 Genome Equivalents/mL. A positive result is indicative of the presence of SARS-CoV-2 RNA. ?Clinical correlation with patient history and other diagnostic information is necessary to determine patient infection status. A negative (Not Detected) result does not preclude SARS-CoV-2 infection. In patients with clinical symptoms and other tests that are consistent with SARS-CoV-2 infection, negative results should be treated as presumptive negative and a new specimen should be tested with alternative PCR molecular test. Invalid: Please collect a new specimen for repeat patient testing if clinically indicated. Lab Interpretation Normal (test code = 96522-7) [facility] with [id number] 15:14:00 Test Item Value Reference Range Interpretation Comments WBC (test code = See_Comment [Automated 6690-2) message] The sy stem which generated this result transmitted reference range : 4.30 - 11.10 10*3/?L. The reference range was not used to interpret this result as normal/abnormal . RBC (test code = See_Comment [Automated 209-8) message] The sy stem which generated this result transmitted reference range : 3.93 - 5.25 10*6/?L. The reference range was not used to interpret this result as normal/abnormal . HGB (test code = 11.3 g/dL 11.6-15 L 718-7) HCT (test code = 34.5 % 35.7-45.2 L 4544-3) MCV (test code = 86.5 fL 80.6-95.5 787-2) MCH (test code = 28.3 pg 25.9-32.8 785-6) MCHC (test code = 32.8 g/dL 31.6-35.1 786-4) RDW-SD (test code = 45.1 fL 39-49.9 08640-3) RDW-CV (test code = 14.4 % 12-15.5 788-0) PLT (test code = See_Comment [Automated 777-3) message] The sy stem which generated this result transmitted reference range : 166 - 358 10*3/ ?L. The reference r julián was not used to interpret this result as normal/abnormal . MPV (test code = 10.3 fL 9.5-12.9 63484-6) NRBC/100 WBC (test See_Comment [Automat ed code = [id number]) message] The system which generated this result transmitted reference range : 0.0 - 10.0 /100 WBCs. The refer ence range was not u sed to interpret th is result as normal/abnormal . NRBC x10^3 (test code <0.01 See_Comment [Auto mated = [id number]) message] The s ystem which generated this result transmitted reference range : 10*3/?L. The reference range was not used to interpret this result as normal/abnormal . GRAN MAT (NEUT) % 70.7 % (test code = 770-8) IMM GRAN % (test code 1.60 % = 7178676655) LYMPH % (test code = 19.0 % 736-9) MONO % (test code = 7.6 % 5905-5) EOS % (test code = 0.9 % 713-8) BASO % (test code = 0.2 % 706-2) GRAN MAT x10^3(ANC) 5.78 10*3/uL 1.88-7.09 (test code = 2088395842) IMM GRAN x10^3 (test 0.13 10*3/uL 0-0.06 H code = 7759146839) LYMPH x10^3 (test code 1.55 10*3/uL 1.32-3.29 = 731-0) MONO x10^3 (test code 0.62 10*3/uL 0.33-0.92 = 742-7) EOS x10^3 (test code = 0.07 10*3/uL 0.03-0.39 711-2) BASO x10^3 (test code <0.03 0.01-0.07 = 704-7) Lab Interpretation Abnormal (test code = 85882-3) [facility] URINALYSIS W SPECIFIC [id number] 14:04:00 Test Item Value Reference Range Interpretation Comments POCT U SP GRAV (test code = 3255) . 1.005-1.025 POCT PH U (test code = 3254) . 5-8 POCT U LEUK EST (test code = 3263) . Negative - Negative POCT U NIT (test code = 3262) . Negative - Negative POCT U PROT (test code = 3259) trace Negative - Negative POCT U GLU (test code = 3256) 1+ Negative - Negative POCT U KETONE (test code = 3258) . Negative - Negative POCT U UROBILI (test code = 3260) . 0.2-1 POCT U BILI (test code = 3261) . Negative - Negative POCT U BLD (test code = 3257) . Negative - Negative POCT U COLOR (test code = 3266) POCT U APPEAR (test code = 3267) [facility] URINALYSIS W SPECIFIC [id number] 14:58:00 Test Item Value Reference Range Interpretation Comments POCT U SP GRAV (test code = 3255) . 1.005-1.025 POCT PH U (test code = 3254) . 5-8 POCT U LEUK EST (test code = 3263) . Negative - Negative POCT U NIT (test code = 3262) . Negative - Negative POCT U PROT (test code = 3259) Trace Negative - Negative POCT U GLU (test code = 3256) Neg Negative - Negative POCT U KETONE (test code = 3258) . Negative - Negative POCT U UROBILI (test code = 3260) . 0.2-1 POCT U BILI (test code = 3261) . Negative - Negative POCT U BLD (test code = 3257) . Negative - Negative POCT U COLOR (test code = 3266) POCT U APPEAR (test code = 3267) [facility] [id number] 15:57:50NST: cat 1, reactive/reassuring, no ctx, +accels, neg decls, moderate variability [facility] URINALYSIS W SPECIFIC [id number] 15:27:00 Test Item Value Reference Range Interpretation Comments POCT U SP GRAV (test code = 3255) . 1.005-1.025 POCT PH U (test code = 3254) . 5-8 POCT U LEUK EST (test code = 3263) . Negative - Negative POCT U NIT (test code = 3262) . Negative - Negative POCT U PROT (test code = 3259) Trace Negative - Negative POCT U GLU (test code = 3256) 1+ Negative - Negative POCT U KETONE (test code = 3258) . Negative - Negative POCT U UROBILI (test code = 3260) . 0.2-1 POCT U BILI (test code = 3261) . Negative - Negative POCT U BLD (test code = 3257) . Negative - Negative POCT U COLOR (test code = 3266) POCT U APPEAR (test code = 3267) [facility] [id number] 15:49:52NST [facility] GRAVITY 2020-01-27 14:58:00 Test Item Value Reference Range Interpretation Comments POCT U SP GRAV (test code = 3255) . 1.005-1.025 POCT PH U (test code = 3254) 5 mg/dl 5-8 POCT U LEUK EST (test code = Trace Negative - Negative 3263) POCT U NIT (test code = 3262) Neg Negative - Negative POCT U PROT (test code = 3259) Trace Negative - Negative POCT U GLU (test code = 3256) Trace Negative - Negative POCT U KETONE (test code = 3258) None Negative - Negative POCT U UROBILI (test code = 3260) . 0.2-1 POCT U BILI (test code = 3261) . Negative - Negative POCT U BLD (test code = 3257) Trace Negative - Negative POCT U COLOR (test code = 3266) POCT U APPEAR (test code = 3267) [facility] URINALYSIS W SPECIFIC [id number] 14:35:00 Test Item Value Reference Range Interpretation Comments POCT U SP GRAV (test code = 3255) . 1.005-1.025 POCT PH U (test code = 3254) . 5-8 POCT U LEUK EST (test code = 3263) . Negative - Negative POCT U NIT (test code = 3262) . Negative - Negative POCT U PROT (test code = 3259) 1+ Negative - Negative POCT U GLU (test code = 3256) Trace Negative - Negative POCT U KETONE (test code = 3258) . Negative - Negative POCT U UROBILI (test code = 3260) . 0.2-1 POCT U BILI (test code = 3261) . Negative - Negative POCT U BLD (test code = 3257) . Negative - Negative POCT U COLOR (test code = 3266) POCT U APPEAR (test code = 3267) [facility] NON-STRESS [id number] 16:26:30NST: cat 1, reactive/reassuring, no ctx, +accels, neg decls, moderate variability [facility] URINALYSIS W SPECIFIC [id number] 15:59:00 Test Item Value Reference Range Interpretation Comments POCT U SP GRAV (test code = 3255) . 1.005-1.025 POCT PH U (test code = 3254) . 5-8 POCT U LEUK EST (test code = 3263) . Negative - Negative POCT U NIT (test code = 3262) . Negative - Negative POCT U PROT (test code = 3259) Trace Negative - Negative POCT U GLU (test code = 3256) Neg Negative - Negative POCT U KETONE (test code = 3258) . Negative - Negative POCT U UROBILI (test code = 3260) . 0.2-1 POCT U BILI (test code = 3261) . Negative - Negative POCT U BLD (test code = 3257) . Negative - Negative POCT U COLOR (test code = 3266) POCT U APPEAR (test code = 3267) [facility] NON-STRESS [id number] 14:29:51NST: cat 1, reactive/reassuring, no ctx, +accels, neg decls, moderate variability [facility] [id number] 13:23:00 Test Item Value Reference Range Interpretation Comments POCT U SP GRAV (test code = 3255) . 1.005-1.025 POCT PH U (test code = 3254) . 5-8 POCT U LEUK EST (test code = 3263) . Negative - Negative POCT U NIT (test code = 3262) . Negative - Negative POCT U PROT (test code = 3259) Trace Negative - Negative POCT U GLU (test code = 3256) 1+ Negative - Negative POCT U KETONE (test code = 3258) . Negative - Negative POCT U UROBILI (test code = 3260) . 0.2-1 POCT U BILI (test code = 3261) . Negative - Negative POCT U BLD (test code = 3257) . Negative - Negative POCT U COLOR (test code = 3266) POCT U APPEAR (test code = 3267) [facility] [id number] 00:32:01NST reactive and reassuring, no ctx [facility]UnSa[facility]CIFIC [id number] 13:15:00 Test Item Value Reference Range Interpretation Comments POCT U SP GRAV (test code = . 1.005-1.025 3255) POCT PH U (test code = 3254) 6 mg/dl 5-8 POCT U LEUK EST (test code = TRACE Negative - Negative 3263) POCT U NIT (test code = 3262) NEGATIVE Negative - Negative POCT U PROT (test code = 3259) TRACE Negative - Negative POCT U GLU (test code = 3256) NEGATIVE Negative - Negative POCT U KETONE (test code = 3258) NEGATIVE Negative - Negative POCT U UROBILI (test code = . 0.2-1 3260) POCT U BILI (test code = 3261) . Negative - Negative POCT U BLD (test code = 3257) SMALL Negative - Negative POCT U COLOR (test code = 3266) POCT U APPEAR (test code = 3267) [facility] URINALYSIS W SPECIFIC [id number] 13:14:00 Test Item Value Reference Range Interpretation Comments POCT U SP GRAV (test code = 3255) . 1.005-1.025 POCT PH U (test code = 3254) . 5-8 POCT U LEUK EST (test code = 3263) . Negative - Negative POCT U NIT (test code = 3262) . Negative - Negative POCT U PROT (test code = 3259) Trace Negative - Negative POCT U GLU (test code = 3256) 1+ Negative - Negative POCT U KETONE (test code = 3258) . Negative - Negative POCT U UROBILI (test code = 3260) . 0.2-1 POCT U BILI (test code = 3261) . Negative - Negative POCT U BLD (test code = 3257) . Negative - Negative POCT U COLOR (test code = 3266) POCT U APPEAR (test code = 3267) [facility] URINALYSIS W SPECIFIC [id number] 13:12:00 Test Item Value Reference Range Interpretation Comments POCT U SP GRAV (test code = 3255) . 1.005-1.025 POCT PH U (test code = 3254) . 5-8 POCT U LEUK EST (test code = 3263) . Negative - Negative POCT U NIT (test code = 3262) . Negative - Negative POCT U PROT (test code = 3259) Trace Negative - Negative POCT U GLU (test code = 3256) 1+ Negative - Negative POCT U KETONE (test code = 3258) . Negative - Negative POCT U UROBILI (test code = 3260) . 0.2-1 POCT U BILI (test code = 3261) . Negative - Negative POCT U BLD (test code = 3257) . Negative - Negative POCT U COLOR (test code = 3266) POCT U APPEAR (test code = 3267) [facility] STREP SCREEN FOR GROUP [id number] 15:57:00 Test Item Value Reference Range Interpretation Comments Streptococcus pyogenes (group A) Negative Negative antigen (test code = 84152-8) Lab Interpretation (test code = Normal 30828-6) [facility] URINALYSIS W/O SPECIFIC [id number] 15:08:00 Test Item Value Reference Range Interpretation Comments POCT PH U (test code = 3254) 5 mg/dl 5-8 POCT U LEUK EST (test code = Trace Negative - Negative 3263) POCT U NIT (test code = 3262) Neg Negative - Negative POCT U PROT (test code = 3259) Trace Negative - Negative POCT U GLU (test code = 3256) Neg Negative - Negative POCT U KETONE (test code = 3258) None Negative - Negative POCT U BLD (test code = 3257) Large Negative - Negative [facility] URINALYSIS W/O SPECIFIC [id number] 15:08:00 Test Item Value Reference Range Interpretation Comments POCT PH U (test code = 3254) 5 mg/dl 5-8 POCT U LEUK EST (test code = Trace Negative - Negative 3263) POCT U NIT (test code = 3262) Neg Negative - Negative POCT U PROT (test code = 3259) Trace Negative - Negative POCT U GLU (test code = 3256) Neg Negative - Negative POCT U KETONE (test code = 3258) None Negative - Negative POCT U BLD (test code = 3257) Large Negative - Negative [facility] URINALYSIS W/O SPECIFIC [id number] 15:08:00 Test Item Value Reference Range Interpretation Comments POCT PH U (test code = 3254) 5 mg/dl 5-8 POCT U LEUK EST (test code = Trace Negative - Negative 3263) POCT U NIT (test code = 3262) Neg Negative - Negative POCT U PROT (test code = 3259) Trace Negative - Negative POCT U GLU (test code = 3256) Neg Negative - Negative POCT U KETONE (test code = 3258) None Negative - Negative POCT U BLD (test code = 3257) Large Negative - Negative [facility] URINALYSIS W/O SPECIFIC [id number] 15:08:00 Test Item Value Reference Range Interpretation Comments POCT PH U (test code = 3254) 5 mg/dl 5-8 POCT U LEUK EST (test code = Trace Negative - Negative 3263) POCT U NIT (test code = 3262) Neg Negative - Negative POCT U PROT (test code = 3259) Trace Negative - Negative POCT U GLU (test code = 3256) Neg Negative - Negative POCT U KETONE (test code = 3258) None Negative - Negative POCT U BLD (test code = 3257) Large Negative - Negative [facility] [id number] 15:06:00 Test Item Value Reference Range Interpretation Comments POCT PREG (test code = 1605) Positive On board controls acceptable with C Yes Line (test code = 3574) POCT PREG LOT # (test code = 3575) POCT PREG TEST DATE (test code = 3576) [facility] [id number] 15:06:00 Test Item Value Reference Range Interpretation Comments POCT PREG (test code = 1605) Positive On board controls acceptable with C Yes Line (test code = 3574) POCT PREG LOT # (test code = 3575) POCT PREG TEST DATE (test code = 3576) [facility] [id number] 15:06:00 Test Item Value Reference Range Interpretation Comments POCT PREG (test code = 1605) Positive On board controls acceptable with C Yes Line (test code = 3574) POCT PREG LOT # (test code = 3575) POCT PREG TEST DATE (test code = 3576) [facility] [id number] 15:06:00 Test Item Value Reference Range Interpretation Comments POCT PREG (test code = 1605) Positive On board controls acceptable with C Yes Line (test code = 3574) POCT PREG LOT # (test code = 3575) POCT PREG TEST DATE (test code = 3576) [facility] URINALYSIS W SPECIFIC [id number] 16:52:00 Test Item Value Reference Range Interpretation Comments POCT U SP GRAV (test code = 3255) . 1.005-1.025 POCT PH U (test code = 3254) . 5-8 POCT U LEUK EST (test code = 3263) . Negative - Negative POCT U NIT (test code = 3262) . Negative - Negative POCT U PROT (test code = 3259) neg Negative - Negative POCT U GLU (test code = 3256) neg Negative - Negative POCT U KETONE (test code = 3258) . Negative - Negative POCT U UROBILI (test code = 3260) . 0.2-1 POCT U BILI (test code = 3261) . Negative - Negative POCT U BLD (test code = 3257) . Negative - Negative POCT U COLOR (test code = 3266) POCT U APPEAR (test code = 3267) [facility] - URINE DRUG (IMMUNOASSAY) - COMPREHENSIVE DRUG [id number] 07:52:00 Test Item Value Reference Range Interpretation Comments AMPHET (test code = Negative Negative 0077149647) ANGUS U (test code = Negative Negative 0532655718) BENZO U (test code = Negative Negative 0032602475) Cocaine Metabolite (test Negative Negative code = 2321897948) METHADONE (test code = Negative Negative 5251484934) OPIATES (test code = Presumptive Positive Negative A 3333109289) PCP (test code = Negative Negative 3464529989) THC (test code = Negative Negative 5692546841) EMILY (test code = EMILY) Urine Drug Cutoff RangesCocaine:? 150 ng/mLBenzodiazepines: ? 200 ng/mLMethadone:? 300 ng/mLAmphetamine:? 1,000 ng/mLOpiates:? 300 ng/mLCannabinoids:?50 ng/mLPhencyclidine:? 25 ng/mLBarbiturates:?20 0 ng/mLThe results are to be used only for medical (i.e., treatment) purposes. Unconfirmed screening results must not be used for non-medical purposes (e.g., employment testing, legal testing). Lab Interpretation (test Abnormal code = 22032-1) [facility] UR[facility] 2018-10-13 01:57:00 Test Item Value Reference Range Interpretation Comments Cocaine Metabolite (test Negative Negative code = 9925131298) OPIATES (test code = Presumptive Positive Negative A 5635140965) THC (test code = Negative Negative 9382508172) EMILY (test code = EMILY) Urine Drug Cutoff RangesCocaine:? 150 ng/mLOpiates:? 300 ng/mLCannabinoids:?50 ng/mLThe results are to be used only for medical (i.e., treatment) purposes. Unconfirmed screening results must not be used for non-medical purposes (e.g., employment testing, legal testing). Lab Interpretation (test Abnormal code = 68131-2) [facility] - SYPHILIS [id number] 13:48:00 Test Item Value Reference Range Interpretation Comments Syphilis IgG/IgM (test Non-reactive Non-reactive code = 83600-5) EMILY (test code = EMILY) Non-reactive - No serologic evidence of T. pallidum infection. Cannot exclude incubating or early syphilis. Submit a second specimen in 2-4 weeks if syphilis is clinically suspected.Equivocal - Further testing to follow.Reactive - Further testing to follow. Lab Interpretation (test Normal code = 59454-5) [facility] WITH [id number] 08:33:00 Test Item Value Reference Range Interpretation Comments WBC (test code = See_Comment H [Automated 6690-2) message] The sy stem which generated this result transmitted reference range : 4.30 - 11.10 10*3/?L. The reference range was not used to interpret this result as normal/abnormal . RBC (test code = See_Comment [Automated 789-8) message] The sy stem which generated this result transmitted reference range : 3.93 - 5.25 10*6/?L. The reference range was not used to interpret this result as normal/abnormal . HGB (test code = 11.0 g/dL 11.6-15 L 718-7) HCT (test code = 34.4 % 35.7-45.2 L 4544-3) MCV (test code = 86.6 fL 80.6-95.5 787-2) MCH (test code = 27.7 pg 25.9-32.8 785-6) MCHC (test code = 32.0 g/dL 31.6-35.1 786-4) RDW-SD (test code = 51.7 fL 39-49.9 H 84836-2) RDW-CV (test code = 16.2 % 12-15.5 H 788-0) PLT (test code = See_Comment [Automated 777-3) message] The sy stem which generated this result transmitted reference range : 166 - 358 10*3/ ?L. The reference r julián was not used to interpret this result as normal/abnormal . MPV (test code = 10.1 fL 9.5-12.9 38016-5) NRBC/100 WBC (test See_Comment [Automat ed code = 1277484328) message] The system which generated this result transmitted reference range : 0.0 - 10.0 /100 WBCs. The refer ence range was not u sed to interpret th is result as normal/abnormal . NRBC x10^3 (test code <0.01 See_Comment [Auto mated = 7528305794) message] The s ystem which generated this result transmitted reference range : 10*3/?L. The reference range was not used to interpret this result as normal/abnormal . GRAN MAT (NEUT) % 79.7 % (test code = 770-8) IMM GRAN % (test code 0.90 % = 3132971302) LYMPH % (test code = 12.1 % 736-9) MONO % (test code = 6.8 % 5905-5) EOS % (test code = 0.3 % 713-8) BASO % (test code = 0.2 % 706-2) GRAN MAT x10^3(ANC) 9.57 10*3/uL 1.88-7.09 H (test code = 4614182222) IMM GRAN x10^3 (test 0.11 10*3/uL 0-0.06 H code = 8535138195) LYMPH x10^3 (test code 1.46 10*3/uL 1.32-3.29 = 731-0) MONO x10^3 (test code 0.82 10*3/uL 0.33-0.92 = 742-7) EOS x10^3 (test code = 0.04 10*3/uL 0.03-0.39 711-2) BASO x10^3 (test code <0.03 0.01-0.07 = 704-7) Lab Interpretation Abnormal (test code = 43329-2) [facility] [id number] 03:31:00 Test Item Value Reference Range Interpretation Comments BASE EXCESS, CORD (test mEq/L code = 3527995336) AC PH, CORD (BEAKER) 7.18-7.38 (test code = 1135507340) PC02, CORD (test code = See_Comment H [Au tomated message] 4353326913) The system [employer] h generated this result transmitted ref erence range: 32 - 66 mmHg. The reference r julián was not used to interpret this result as normal/abnor mal. PO2, CORD (test code = See_Comment N/A [ Automated 5558353543) message] The sy stem which generated this result transmit za reference range : 10 - 30 mmHg. The reference range was not used to int erpret this result as normal/abnormal . BICARBONATE, CORD (test See_Comment [Au tomated message] code = 6696018456) The syste m which generated this result transmitted ref erence range: 17 - 27 mEq/L. The reference r julián was not used to interpret this result as normal/abnor mal. Lab Interpretation (test Abnormal code = 55898-3) [facility] South[facility] Cord [id number] 03:27:00 Test Item Value Reference Range Interpretation Comments VENOUS BASE EXCESS, CORD mEq/L (test code = 0060211475) VENOUS PH, CORD (test 7.25-7.45 L code = 1079686009) VENOUS PC02, CORD (test See_Comment H [Au tomated message] code = 5677908115) The syste m which generated this result transmitted ref erence range: 27 - 49 mmHg. The reference r julián was not used to interpret this result as normal/abnor mal. VENOUS PO2, CORD (test See_Comment L [Aut omated message] code = 2345337799) The syste m which generated this result transmitted ref erence range: 17 - 41 mmHg. The reference r julián was not used to interpret this result as normal/abnor mal. VENOUS BICARBONATE, CORD See_Comment [A utomated message] (test code = 9696838872) The system which generated this result transmitted ref erence range: 12 - 29 mEq/L. The reference r julián was not used to interpret this result as normal/abnor mal. Lab Interpretation (test Abnormal code = 20967-0) [facility] South[facility]/2 AG-AB WITH [id number] 02:38:00 Test Item Value Reference Range Interpretation Comments HIV Negative Negative Semi-quantitative (test code = 25209-9) EMILY (test code = Non-reactive for HIV-1 EMILY) antigen and HIV-1/HIV-2 antibodies.?No laboratory evidence of HIV infection.?Repeat in 2-4 weeks if acute HIV infection is suspected. [facility] SouthHEPATITIS B SURFACE [id number] 02:29:00 Test Item Value Reference Range Interpretation Comments HBsAg Semi-Quantitative (test code = 5195-3) [facility] SouthType and Screen - ONCE [id number] 02:09:22 Test Item Value Reference Range Interpretation Comments ABO & RH (test code A POSITIVE Performe d at [facility] = 20) Laboratory [facility] Blood [facility] [address] [facility] [place] [address]Eika Free: [phone] A No. [id number] IAT (test code = Negative Performed a t [facility] 1185) Laboratory [facility] Blood [facility] [address] [facility] s [address]Zyfp Free: [phone] A No. [id number] [facility] SouthCBC WITH [id number] 01:25:00 Test Item Value Reference Range Interpretation Comments WBC (test code = See_Comment [Automated 6790-2) message] The sy stem which generated this result transmitted reference range : 4.30 - 11.10 10*3/?L. The reference range was not used to interpret this result as normal/abnormal . RBC (test code = See_Comment [Automated 019-8) message] The sy stem which generated this result transmitted reference range : 3.93 - 5.25 10*6/?L. The reference range was not used to interpret this result as normal/abnormal . HGB (test code = 11.3 g/dL 11.6-15 L 718-7) HCT (test code = 35.7 % 35.7-45.2 4544-3) MCV (test code = 85.2 fL 80.6-95.5 787-2) MCH (test code = 27.0 pg 25.9-32.8 785-6) MCHC (test code = 31.7 g/dL 31.6-35.1 786-4) RDW-SD (test code = 50.4 fL 39-49.9 H 79003-8) RDW-CV (test code = 16.1 % 12-15.5 H 788-0) PLT (test code = See_Comment [Automated 777-3) message] The sy stem which generated this result transmitted reference range : 166 - 358 10*3/ ?L. The reference r julián was not used to interpret this result as normal/abnormal . MPV (test code = 10.5 fL 9.5-12.9 89400-4) NRBC/100 WBC (test See_Comment [Automat ed code = 4370591438) message] The system which generated this result transmitted reference range : 0.0 - 10.0 /100 WBCs. The refer ence range was not u sed to interpret th is result as normal/abnormal . NRBC x10^3 (test code <0.01 See_Comment [Auto mated = 9160998722) message] The s ystem which generated this result transmitted reference range : 10*3/?L. The reference range was not used to interpret this result as normal/abnormal . GRAN MAT (NEUT) % 68.3 % (test code = 770-8) IMM GRAN % (test code 1.80 % = 9037422848) LYMPH % (test code = 21.4 % 736-9) MONO % (test code = 7.1 % 5905-5) EOS % (test code = 1.1 % 713-8) BASO % (test code = 0.3 % 706-2) GRAN MAT x10^3(ANC) 6.14 10*3/uL 1.88-7.09 (test code = 6891921532) IMM GRAN x10^3 (test 0.16 10*3/uL 0-0.06 H code = 5617089664) LYMPH x10^3 (test code 1.92 10*3/uL 1.32-3.29 = 731-0) MONO x10^3 (test code 0.64 10*3/uL 0.33-0.92 = 742-7) EOS x10^3 (test code = 0.10 10*3/uL 0.03-0.39 711-2) BASO x10^3 (test code 0.03 10*3/uL 0.01-0.07 = 704-7) Lab Interpretation Abnormal (test code = 64248-1) [facility] South[facility] GLU[facility]SE (AUTOMATED)2018-10-12 00:44:00 Test Item Value Reference Range Interpretation Comments POCT GLU (test code = 5036076706) 88 mg/dL 70-110 Lab Interpretation (test code = Normal 28084-3) [facility] NON-STRESS [id number] 16:45:41 Test Item Value Reference Range Interpretation Comments EMILY (test code = EMILY) NON STRESS TEST INTERPRETATIONDate: 10/11/2018 11:44 Apoorva Toribio is a 28 year old female Gestational age: 36w5d weeks Indications: Patient Active Problem List Diagnosis Maternal varicella, non-immune Morbid obesity, unspecified obesity type [E66.01] Family history of autism History of depression History of substance abuse Previous delivery affecting , antepartum Influenza vaccination declined Vaginal yeast infection GDM (gestational diabetes mellitus) 33 weeks gestation of Polyhydramnios, antepartum complication Pyelectasis of fetus on ultrasound Urinary tract infection in mother during , antepartum GDM, class A2 Supervision of high risk in third trimester Polyhydramnios, third trimester, single gestation Excessive growth affecting management of in third trimester, single or unspecified fetus Results:? NST: Non-reactiveFHR baseline: 144 BPMChanges: one variable deceelrationsComments : toco negativePlan: Delivery by ERCD today.Vern Worthington MD #[id number] 11:44 AM? Lab Interpretation (test Abnormal code = 40768-0) [facility]CIFIC [id number] 15:52:00 Test Item Value Reference Range Interpretation Comments POCT U SP GRAV (test code = 3255) . 1.005-1.025 POCT PH U (test code = 3254) 5 mg/dl 5-8 POCT U LEUK EST (test code = 2+ Negative - Negative 3263) POCT U NIT (test code = 3262) neg\ Negative - Negative POCT U PROT (test code = 3259) trace Negative - Negative POCT U GLU (test code = 3256) 2+ Negative - Negative POCT U KETONE (test code = 3258) small Negative - Negative POCT U UROBILI (test code = 3260) . 0.2-1 POCT U BILI (test code = 3261) . Negative - Negative POCT U BLD (test code = 3257) large Negative - Negative POCT U COLOR (test code = 3266) POCT U APPEAR (test code = 3267) [facility] WITH NON-STRESS TEST 2018-10-09 13:38:54BPP 12/20[facility]BI[facility] NON-STRESS [id number] 13:38:54BPP 12/20[facility]Saint [facility]PO[facility] W SPECIFIC [id number] 14:28:00 Test Item Value Reference Range Interpretation Comments POCT U SP GRAV (test code = 3255) . 1.005-1.025 POCT PH U (test code = 3254) 5 mg/dl 5-8 POCT U LEUK EST (test code = Neg Negative - Negative 3263) POCT U NIT (test code = 3262) Neg Negative - Negative POCT U PROT (test code = 3259) Trace Negative - Negative POCT U GLU (test code = 3256) Negative - Negative POCT U KETONE (test code = 3258) None Negative - Negative POCT U UROBILI (test code = 3260) . 0.2-1 POCT U BILI (test code = 3261) . Negative - Negative POCT U BLD (test code = 3257) Trace Negative - Negative POCT U COLOR (test code = 3266) POCT U APPEAR (test code = 3267) [facility]ON[facility] URINAL[facility] W SPECIFIC [id number] 14:28:00 Test Item Value Reference Range Interpretation Comments POCT U SP GRAV (test code = 3255) . 1.005-1.025 POCT PH U (test code = 3254) 5 mg/dl 5-8 POCT U LEUK EST (test code = Neg Negative - Negative 3263) POCT U NIT (test code = 3262) Neg Negative - Negative POCT U PROT (test code = 3259) Trace Negative - Negative POCT U GLU (test code = 3256) Negative - Negative POCT U KETONE (test code = 3258) None Negative - Negative POCT U UROBILI (test code = 3260) . 0.2-1 POCT U BILI (test code = 3261) . Negative - Negative POCT U BLD (test code = 3257) Trace Negative - Negative POCT U COLOR (test code = 3266) POCT U APPEAR (test code = 3267) [facility] NON-STRESS [id number] 18:46:43 Baseline 140 to 150s, reactive. No CTXs.[facility] SouthFET[facility] NON-STRESS [id number] 18:46:43Baseline 140 to 150s, reactive. No CTXs. [facility] W SPECIFIC [id number] 18:10:00 Test Item Value Reference Range Interpretation Comments POCT U SP GRAV (test code = 3255) . 1.005-1.025 POCT PH U (test code = 3254) 6 mg/dl 5-8 POCT U LEUK EST (test code = Neg Negative - Negative 3263) POCT U NIT (test code = 3262) Neg Negative - Negative POCT U PROT (test code = 3259) Trace Negative - Negative POCT U GLU (test code = 3256) Negative - Negative POCT U KETONE (test code = 3258) None Negative - Negative POCT U UROBILI (test code = 3260) . 0.2-1 POCT U BILI (test code = 3261) . Negative - Negative POCT U BLD (test code = 3257) Negative - Negative POCT U COLOR (test code = 3266) POCT U APPEAR (test code = 3267) [facility] URINALYS[facility] W SPECIFIC [id number] 18:10:00 Test Item Value Reference Range Interpretation Comments POCT U SP GRAV (test code = 3255) . 1.005-1.025 POCT PH U (test code = 3254) 6 mg/dl 5-8 POCT U LEUK EST (test code = Neg Negative - Negative 3263) POCT U NIT (test code = 3262) Neg Negative - Negative POCT U PROT (test code = 3259) Trace Negative - Negative POCT U GLU (test code = 3256) Negative - Negative POCT U KETONE (test code = 3258) None Negative - Negative POCT U UROBILI (test code = 3260) . 0.2-1 POCT U BILI (test code = 3261) . Negative - Negative POCT U BLD (test code = 3257) Negative - Negative POCT U COLOR (test code = 3266) POCT U APPEAR (test code = 3267) [facility]
--- NOTE | 2023-02-08 09:59 | ER ---
Nurse's Notes [facility] Name: Apoorva Toribio Age: 32 yrs Sex: Female : 1990 Arrival Date: 02/08/2023 Time: 08:17 Bed DIS5 Private MD: Diagnosis: Influenza due to identified novel influenza A virus Presentation: 02/08 08:38 Chief complaint: Patient states: Cough, runny nose, fever for 4 days. Kids also sick. ll1 Coronavirus screen: Vaccine status: Patient reports being unvaccinated. Client denies travel out of the [place] in the last 14 days. congestion, cough unrelated to allergies. Ebola Screen: Patient denies travel to an Ebola-affected area in the 21 days before illness onset. Initial Sepsis Screen: Does the patient meet any 2 criteria? No. Patient's initial sepsis screen is negative. Does the patient have a suspected source of infection? Yes: Productive cough/pneumonia. Risk Assessment: Do you want to hurt yourself or someone else? Patient reports no desire to harm self or others. Onset of symptoms was February 04, 2023. 08:38 Method Of Arrival: Ambulatory 1 08:38 Acuity: KARLY 4 ll1 Triage Assessment: 08:38 General: Appears uncomfortable, ill, Behavior is calm, cooperative, appropriate for 3 age. Pain: Complains of pain in body Quality of pain is described as aching. EENT: Reports nasal congestion. Respiratory: Reports cough that is. 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 - Social history:: Smoking status: Patient reports the use of cigarette tobacco products, smokes one-half pack cigarettes per day. Screenin:46 [facility] ED Fall Risk Assessment (Adult) Score/Fall Risk Level 0 - 2 = Low Risk ll1 Oriented to surroundings, Maintained a safe environment, Educated pt \T\ family on fall prevention, incl call for assistance when getting out of bed, Hourly rounding (assess needs \T\ fall precautionary measures) done. Abuse screen: Denies threats or abuse. Nutritional screening: No deficits noted. Tuberculosis screening: No symptoms or risk factors identified. Vital Signs: 08:38 BP 128 / 79; Pulse 110; Resp 18; Temp 97.8; Pulse Ox 99% ; Weight 102.06 kg; Height 5 ll1 ft. 7 in. ; Pain 09/19; 08:38 Body Mass Index 35.24 (102.06 kg, 170.18 cm) ll1 08:38 Pain Scale: Adult ll1 ED Course: 08:18 Patient arrived in ED. kb 08:18 Tessa Edwards FNP-C is PHCP. kb 08:18 Orlin Saldaña DO is Attending Physician. kb 08:37 Arm band placed on. ll1 08:39 Triage completed. ll1 08:44 COVID-19 SARS RT PCR Sent. bc6 08:44 Flu Sent. bc6 09:00 Flu Sent. ll1 09:00 COVID-19 SARS RT PCR Sent. ll1 10:46 No provider procedures requiring assistance completed. Patient did not have IV access ll1 during this emergency room visit. 10:47 Patient has correct armband on for positive identification. Bed in low position. Call ll1 light in reach. Provided Education on: n/a. Administered Medications: No medications were administered Medication: 10:47 VIS not applicable for this client. ll1 Outcome: 09:59 Discharge ordered by . kb 10:46 Discharged to home ambulatory, ll1 10:46 Condition: stable 10:46 Discharge instructions given to patient, Instructed on discharge instructions, follow up and referral plans. Demonstrated understanding of instructions, follow-up care, 10:47 Patient left the ED. ll1 Signatures: Tessa Edwards FNP-C FNP-Ckb Lewis, Lynsay, RN RN ll1 Ramya Aquino 6
--- NOTE | 2023-02-08 09:59 | EDPHYS ---
Physician Documentation [facility] Name: Apoorva Toribio Age: 32 yrs Sex: Female : 1990 Arrival Date: 02/08/2023 Time: 08:17 Bed DIS5 Private MD: ED Physician Orlin Saldaña HPI: 02/08 08:43 This 32 yrs old Female presents to ER via Ambulatory with complaints of Flu kb Symptoms. 08:43 Patient is a 32-year-old female who presents for cough, congestion and fever for 2 kb days. Children have similar symptoms.. 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 - Social history:: Smoking status: Patient reports the use of cigarette tobacco products, smokes one-half pack cigarettes per day. ROS: 08:43 Abdomen/GI: Negative for abdominal pain, nausea, vomiting, diarrhea, and constipation, kb 08:43 Constitutional: Positive for fever, 08:43 ENT: Positive for rhinorrhea, sinus congestion, 08:43 Respiratory: Positive for cough, 08:43 All other systems are negative, Exam: 08:43 Constitutional: This is a well developed, well nourished patient who is awake, alert, kb and in no acute distress. Head/Face: Normocephalic, atraumatic. ENT: Moist Mucous membranes Cardiovascular: Regular rate Respiratory: Respirations even and unlabored. No increased work of breathing. Talking in full sentences Skin: Warm, dry with normal turgor. Normal color. MS/ Extremity: Pulses equal, no cyanosis. Neurovascular intact. Full, normal range of motion. Neuro: Awake and alert, GCS 15, oriented to person, place, time, and situation. Moves all extremities. Normal gait. Vital Signs: 08:38 BP 128 / 79; Pulse 110; Resp 18; Temp 97.8; Pulse Ox 99% ; Weight 102.06 kg; Height 5 ll1 ft. 7 in. ; Pain 7/10; 08:38 Body Mass Index 35.24 (102.06 kg, 170.18 cm) ll1 08:38 Pain Scale: Adult ll1 MDM: 08:19 Patient medically screened. kb 08:43 Differential diagnosis: Flu, COVID, URI, RSV. Data reviewed: vital signs, nurses notes. kb 09:58 Counseling: I had a detailed discussion with the patient and/or guardian regarding the historical points, exam findings, and any diagnostic results supporting the discharge/admit diagnosis, lab results, the need for outpatient follow up, a family practitioner, to return to the emergency department if symptoms worsen or persist or if there are any questions or concerns that arise at home. 09:59 I considered the following discharge prescriptions or medication management in the emergency department I discussed and recommended Over The Counter medications, Antibiotics: At this time antibiotics are not recommended, Antivirals: At this time, antivirals are not recommended. Test considered but Not performed: X-ray: chest x-ray considered but lungs clear bilaterally, resp even and unlabored, and oxygen 99% on room air. 02/08 08:33 Order name: Flu; Complete Time: 09:58 kb 02/08 08:33 Order name: COVID-19 SARS RT PCR; Complete Time: 09:48 kb Administered Medications: No medications were administered Disposition: 09:03 I was immediately available on-site in the Emergency Department for consultation in the ms3 care of the patient. Disposition Summary: 02/08/23 09:59 Discharge Ordered Notes: Location: Home Condition: Stable kb Diagnosis - Influenza due to identified novel influenza A virus kb Followup: kb - With: Emergency Department - When: As needed - Reason: Worsening of condition Followup: kb - With: Private Physician - When: 2 - 3 days - Reason: Recheck today's complaints, Continuance of care, Re-evaluation by your physician Discharge Instructions: - Discharge Summary Sheet kb - Influenza, Adult, [id number] kb Forms: - Work release form kb - Medication Reconciliation Form kb - Thank You Letter kb - Antibiotic Education kb - Prescription Opioid Use kb - Patient Portal Instructions kb - Leadership Thank You Letter kb Signatures: Dispatcher [employer] Tessa Diaz, ELSIE-C ELSIE-Fransisco Rubio RN RN ll1 Orlin Saldaña, DO DO ms3
[2023-02-08 11:04] VITALS: BP 128/79; TEMP 97.8; O2SAT 99
== END 2023-02-08 10:47 | disposition home or self-care (01) ==
LOC: ER 08:17
DX: J10.1 Influenza due to other identified influenza virus with other respiratory manifestations (principal); Z11.52 Encounter for screening for COVID-19; F17.210 Nicotine dependence, cigarettes, uncomplicated
CPT/HCPCS: 87635; 87804; 99283